=== PATIENT | female | born 1945 | race Caucasian/White ===

== ENCOUNTER → 2017-03-22 | Outpatient (REF) | payer MEDICARE | LOC: M LAB REF 09:40 | PROVIDERS: ATTEND Physician Assistant | DX: N39.0 Urinary tract infection, site not specified (principal) ==

== ENCOUNTER → 2017-04-19 | Outpatient (CLI) | payer MEDICARE ==
[2017-04-19 10:09] LABS: MEAN CORPUSCULAR HEMOGLOBIN 31.3 pg (27.0-33.0); MEAN CORPUSCULAR HGB CONC 33.7 g/dl (32.0-36.5); MEAN CORPUSCULAR VOLUME 92.9 fl (80.0-96.0); RED CELL DISTRIBUTION WIDTH 12.6 % (11.5-14.5); WHITE BLOOD COUNT 4.7 K/mm3 (4.0-10.0)
[2017-04-19 10:36] LABS: ALBUMIN 3.5 GM/DL (3.2-5.2); ALBUMIN/GLOBULIN RATIO 1.21 (1.00-1.93); ALKALINE PHOSPHATASE 70 U/L (45-117); ALT/SGPT 27 U/L (12-78); ANION GAP 7 MEQ/L (8-16); AST/SGOT 19 U/L (15-37); BILIRUBIN,TOTAL 0.5 MG/DL (0.2-1.0); BLOOD UREA NITROGEN 20 MG/DL (7-18); CALCIUM LEVEL 8.5 MG/DL (8.8-10.2); CARBON DIOXIDE LEVEL 33 MEQ/L (21-32); CHLORIDE LEVEL 102 MEQ/L (98-107); CHOLESTEROL LEVEL 198 MG/DL (<200); CREATININE FOR GFR 0.96 MG/DL (0.55-1.02); FREE T4 1.25 NG/DL (0.76-1.46); GLOMERULAR FILTRATION RATE > 60.0 (>39); GLUCOSE, FASTING 96 MG/DL (83-110); SODIUM LEVEL 142 MEQ/L (136-145); TOTAL PROTEIN 6.4 GM/DL (6.4-8.2); TRIGLYCERIDES LEVEL 117 MG/DL (<150)
[2017-04-19 10:52] LABS: VITAMIN B12 LEVEL 488 PG/ML (247-911)
== END ==
LOC: M WUC 08:02
PROVIDERS: ATTEND Nurse Practitioner Family
DX: I10 Essential (primary) hypertension (principal); E78.00 Pure hypercholesterolemia, unspecified; E03.9 Hypothyroidism, unspecified; E55.9 Vitamin D deficiency, unspecified; E53.8 Deficiency of other specified B group vitamins

== ENCOUNTER → 2017-07-14 | Outpatient (CLI) | payer MEDICARE ==
[2017-07-14 10:12] LABS: MEAN CORPUSCULAR HEMOGLOBIN 31.1 pg (27.0-33.0); MEAN CORPUSCULAR HGB CONC 33.7 g/dl (32.0-36.5); MEAN CORPUSCULAR VOLUME 92.2 fl (80.0-96.0); RED CELL DISTRIBUTION WIDTH 12.9 % (11.5-14.5)
[2017-07-14 10:42] LABS: ALBUMIN 3.8 GM/DL (3.2-5.2); ALBUMIN/GLOBULIN RATIO 1.41 (1.00-1.93); ALKALINE PHOSPHATASE 70 U/L (45-117); ALT/SGPT 21 U/L (12-78); ANION GAP 7 MEQ/L (8-16); AST/SGOT 16 U/L (15-37); BILIRUBIN,TOTAL 0.5 MG/DL (0.2-1.0); BLOOD UREA NITROGEN 14 MG/DL (7-18); CALCIUM LEVEL 9.1 MG/DL (8.8-10.2); CARBON DIOXIDE LEVEL 30 MEQ/L (21-32); CHLORIDE LEVEL 108 MEQ/L (98-107); CREATININE FOR GFR 0.81 MG/DL (0.55-1.02); GLOMERULAR FILTRATION RATE > 60.0 (>39); GLUCOSE, FASTING 99 MG/DL (83-110); SODIUM LEVEL 145 MEQ/L (136-145); TOTAL PROTEIN 6.5 GM/DL (6.4-8.2)
[2017-07-16 11:20] LABS: CHOLESTEROL LEVEL 215 MG/DL (<200); TRIGLYCERIDES LEVEL 144 MG/DL (<150)
== END ==
LOC: M LAB 09:41
PROVIDERS: ATTEND Nurse Practitioner Family
DX: E55.9 Vitamin D deficiency, unspecified (principal); Z79.899 Other long term (current) drug therapy

== ENCOUNTER → 2017-08-02 | Outpatient (CLI) | payer MEDICARE ==
--- NOTE | 2017-08-02 15:34 | REP ---
Clinical: Pain. Technique: Neutral and frog lateral views of the right hip. Findings: Age-related degenerative changes include mild joint space narrowing along with increased sclerosis to the acetabular roof and adjacent spurring. Cortical irregularity to the greater trochanter also identified. Normal contour to the femoral neck and head. No acute fracture dislocation. No periarticular calcifications. Impression: Age-related arthritic degenerative changes. Signed by Liu Sepulveda MD 08/02/2017 03:25 P
--- NOTE | 2017-08-02 15:54 | REP ---
LUMBAR SPINE, FIVE VIEWS: HISTORY: Back pain. There is no acute fracture or subluxation. The L2-3 through L5-S1 intervertebral discs are decreased in height consistent with disc degeneration. Osteophytes are present throughout the lumbar spine. There is narrowing of the L4-5 and L5-S1 facet joints. IMPRESSION:Degenerative change as described above. Signed by Chase Trent MD 08/02/2017 04:02 P
== END ==
LOC: M WUC 14:52
PROVIDERS: ATTEND Nurse Practitioner Family
DX: M16.11 Unilateral primary osteoarthritis, right hip (principal); M51.37 Other intervertebral disc degeneration, lumbosacral region

== ENCOUNTER → 2017-10-10 | Outpatient (CLI) | payer MEDICARE ==
[2017-10-10 13:12] LABS: MEAN CORPUSCULAR HEMOGLOBIN 30.6 pg (27.0-33.0); MEAN CORPUSCULAR HGB CONC 33.1 g/dl (32.0-36.5); MEAN CORPUSCULAR VOLUME 92.5 fl (80.0-96.0); PLATELET COUNT, AUTOMATED 255 10^3/uL (150-450); RED CELL DISTRIBUTION WIDTH 12.1 % (11.5-14.5); WHITE BLOOD COUNT 5.3 10^3/uL (4.0-10.0)
[2017-10-10 13:16] LABS: ALBUMIN 3.8 GM/DL (3.2-5.2); ALBUMIN/GLOBULIN RATIO 1.31 (1.00-1.93); ALKALINE PHOSPHATASE 76 U/L (45-117); ALT/SGPT 22 U/L (12-78); ANION GAP 5 MEQ/L (8-16); AST/SGOT 19 U/L (7-37); BILIRUBIN,TOTAL 0.5 MG/DL (0.2-1.0); BLOOD UREA NITROGEN 17 MG/DL (7-18); CALCIUM LEVEL 8.8 MG/DL (8.8-10.2); CARBON DIOXIDE LEVEL 33 MEQ/L (21-32); CHLORIDE LEVEL 103 MEQ/L (98-107); CHOLESTEROL LEVEL 208 MG/DL (<200); CREATININE FOR GFR 0.84 MG/DL (0.55-1.02); FREE T4 1.13 NG/DL (0.76-1.46); GLOMERULAR FILTRATION RATE > 60.0 (>39); GLUCOSE, FASTING 94 MG/DL (83-110); POTASSIUM SERUM 3.6 MEQ/L (3.5-5.1); SODIUM LEVEL 141 MEQ/L (136-145); TOTAL PROTEIN 6.7 GM/DL (6.4-8.2); TRIGLYCERIDES LEVEL 121 MG/DL (<150)
[2017-10-10 13:18] LABS: VITAMIN B12 LEVEL 422 PG/ML (247-911)
== END ==
LOC: M WUC 08:37
PROVIDERS: ATTEND Nurse Practitioner Family
DX: I10 Essential (primary) hypertension (principal); E55.9 Vitamin D deficiency, unspecified; D64.9 Anemia, unspecified

== ENCOUNTER → 2018-05-20 | Outpatient (CLI) | payer MEDICARE ==
[2018-05-20 13:51] LABS: HEMATOCRIT 38.8 % (36.0-47.0); HEMOGLOBIN 12.8 g/dl (12.0-15.5); MEAN CORPUSCULAR HEMOGLOBIN 30.1 pg (27.0-33.0); MEAN CORPUSCULAR VOLUME 91.3 fl (80.0-96.0); PLATELET COUNT, AUTOMATED 249 10^3/uL (150-450); RED BLOOD COUNT 4.25 10^6/uL (4.00-5.40); RED CELL DISTRIBUTION WIDTH 12.6 % (11.5-14.5); WHITE BLOOD COUNT 4.6 10^3/uL (4.0-10.0)
[2018-05-20 14:27] LABS: ALBUMIN 3.7 GM/DL (3.2-5.2); ALBUMIN/GLOBULIN RATIO 1.23 (1.00-1.93); ALKALINE PHOSPHATASE 85 U/L (45-117); ALT/SGPT 25 U/L (12-78); ANION GAP 7 MEQ/L (8-16); AST/SGOT 23 U/L (7-37); BILIRUBIN,TOTAL 0.6 MG/DL (0.2-1.0); BLOOD UREA NITROGEN 15 MG/DL (7-18); CARBON DIOXIDE LEVEL 29 MEQ/L (21-32); CHLORIDE LEVEL 105 MEQ/L (98-107); CHOLESTEROL LEVEL 233 MG/DL (<200); CHOLESTEROL RISK RATIO 3.065 (<5); CPK CREATINE PHOSPHOKINASE 99 U/L (26-192); CREATININE FOR GFR 0.97 MG/DL (0.55-1.30); FREE T4 1.07 NG/DL (0.76-1.46); GLOMERULAR FILTRATION RATE 59.6 (>39); GLUCOSE, FASTING 99 MG/DL (70-100); HDL CHOLESTEROL 76 MG/DL (>40); LDL CHOLESTEROL 123.4 MG/DL (<100); NON-HDL-C 157 MG/DL; POTASSIUM SERUM 4.4 MEQ/L (3.5-5.1); SODIUM LEVEL 141 MEQ/L (136-145); TOTAL PROTEIN 6.7 GM/DL (6.4-8.2); TRIGLYCERIDES LEVEL 168 MG/DL (<150)
== END ==
LOC: M WUC 08:46
DX: E03.9 Hypothyroidism, unspecified (principal); I10 Essential (primary) hypertension
CPT/HCPCS: 82550

== ENCOUNTER → 2018-10-30 | Outpatient (CLI) | payer MEDICARE ==
[2018-10-30 09:57] LABS: ALBUMIN 3.6 GM/DL (3.2-5.2); ALBUMIN/GLOBULIN RATIO 1.24 (1.00-1.93); ALKALINE PHOSPHATASE 80 U/L (45-117); ALT/SGPT 19 U/L (12-78); ANION GAP 6 MEQ/L (8-16); AST/SGOT 15 U/L (7-37); BILIRUBIN,TOTAL 0.5 MG/DL (0.2-1.0); BLOOD UREA NITROGEN 16 MG/DL (7-18); CALCIUM LEVEL 8.9 MG/DL (8.8-10.2); CARBON DIOXIDE LEVEL 30 MEQ/L (21-32); CHLORIDE LEVEL 107 MEQ/L (98-107); CHOLESTEROL LEVEL 178 MG/DL (<200); CHOLESTEROL RISK RATIO 1.934 (<5); CPK CREATINE PHOSPHOKINASE 111 U/L (26-192); CREATININE FOR GFR 0.89 MG/DL (0.55-1.30); FREE T4 1.17 NG/DL (0.76-1.46); GLOMERULAR FILTRATION RATE > 60.0 (>39); GLUCOSE, FASTING 96 MG/DL (70-100); HDL CHOLESTEROL 92 MG/DL (>40); LDL CHOLESTEROL 61 MG/DL (<100); NON-HDL-C 86 MG/DL; POTASSIUM SERUM 4.2 MEQ/L (3.5-5.1); SODIUM LEVEL 143 MEQ/L (136-145); THYROID STIMULATING HORMONE 0.605 uIU/ML (0.358-3.740); TOTAL PROTEIN 6.5 GM/DL (6.4-8.2); TRIGLYCERIDES LEVEL 124 MG/DL (<150)
[2018-10-30 18:21] LABS: HEMATOCRIT 34.9 % (36.0-47.0); HEMOGLOBIN 11.6 g/dl (12.0-15.5); MEAN CORPUSCULAR HEMOGLOBIN 30.6 pg (27.0-33.0); MEAN CORPUSCULAR HGB CONC 33.2 g/dl (32.0-36.5); MEAN CORPUSCULAR VOLUME 92.1 fl (80.0-96.0); PLATELET COUNT, AUTOMATED 245 10^3/uL (150-450); RED BLOOD COUNT 3.79 10^6/uL (4.00-5.40); RED CELL DISTRIBUTION WIDTH 12.9 % (11.5-14.5); WHITE BLOOD COUNT 5.4 10^3/uL (4.0-10.0)
== END ==
LOC: M WUC 08:10
DX: E55.9 Vitamin D deficiency, unspecified (principal); I10 Essential (primary) hypertension; E78.5 Hyperlipidemia, unspecified
CPT/HCPCS: 82550

== ENCOUNTER → 2019-04-07 | Outpatient (REF) | payer MEDICARE ==
[2019-04-07 13:01] LABS: HEMATOCRIT 36.4 % (36.0-47.0); HEMOGLOBIN 11.9 g/dl (12.0-15.5); MEAN CORPUSCULAR HEMOGLOBIN 30.1 pg (27.0-33.0); MEAN CORPUSCULAR HGB CONC 32.7 g/dl (32.0-36.5); MEAN CORPUSCULAR VOLUME 91.9 fl (80.0-96.0); PLATELET COUNT, AUTOMATED 242 10^3/uL (150-450); RED BLOOD COUNT 3.96 10^6/uL (4.00-5.40); WHITE BLOOD COUNT 4.5 10^3/uL (4.0-10.0)
[2019-04-07 13:13] LABS: ALBUMIN 3.5 GM/DL (3.2-5.2); ALT/SGPT 22 U/L (12-78); BILIRUBIN,TOTAL 0.6 MG/DL (0.2-1.0); BLOOD UREA NITROGEN 13 MG/DL (7-18); CALCIUM LEVEL 8.8 MG/DL (8.8-10.2); CARBON DIOXIDE LEVEL 31 MEQ/L (21-32); CHLORIDE LEVEL 105 MEQ/L (98-107); CPK CREATINE PHOSPHOKINASE 101 U/L (26-192); CREATININE FOR GFR 0.87 MG/DL (0.55-1.30); FREE T4 0.98 NG/DL (0.76-1.46); GLOMERULAR FILTRATION RATE > 60.0 (>39); GLUCOSE, FASTING 93 MG/DL (70-100); POTASSIUM SERUM 3.8 MEQ/L (3.5-5.1); SODIUM LEVEL 142 MEQ/L (136-145); TOTAL 25(OH) VITAMIN D 42.3 NG/ML (30.0-100.0); TOTAL PROTEIN 6.5 GM/DL (6.4-8.2)
== END ==
LOC: M LABDRAW1 11:50
PROVIDERS: ATTEND Nurse Practitioner Family
DX: I10 Essential (primary) hypertension (principal); E78.5 Hyperlipidemia, unspecified; E55.9 Vitamin D deficiency, unspecified; E03.9 Hypothyroidism, unspecified; Z79.899 Other long term (current) drug therapy

== ENCOUNTER → 2019-07-21 | Outpatient (CLI) | payer MEDICARE ==
[2019-07-21 14:47] LABS: BLOOD UREA NITROGEN 10 MG/DL (7-18); CALCIUM LEVEL 9.5 MG/DL (8.8-10.2); CARBON DIOXIDE LEVEL 34 MEQ/L (21-32); CHLORIDE LEVEL 104 MEQ/L (98-107); CREATININE FOR GFR 0.81 MG/DL (0.55-1.30); GLOMERULAR FILTRATION RATE > 60.0 (>39); GLUCOSE, FASTING 91 MG/DL (70-100); POTASSIUM SERUM 3.2 MEQ/L (3.5-5.1); SODIUM LEVEL 141 MEQ/L (136-145)
== END ==
LOC: M LAB 13:45
PROVIDERS: ATTEND Neurological Surgery
DX: E87.6 Hypokalemia (principal); I67.1 Cerebral aneurysm, nonruptured

== ENCOUNTER → 2019-08-27 | Outpatient (CLI) | payer MEDICARE ==
[2019-08-27 10:15] LABS: HEMOGLOBIN 12.8 g/dl (12.0-15.5); MEAN CORPUSCULAR HEMOGLOBIN 30.3 pg (27.0-33.0); MEAN CORPUSCULAR HGB CONC 32.8 g/dl (32.0-36.5); MEAN CORPUSCULAR VOLUME 92.2 fl (80.0-96.0); PLATELET COUNT, AUTOMATED 222 10^3/uL (150-450); RED BLOOD COUNT 4.23 10^6/uL (4.00-5.40); WHITE BLOOD COUNT 4.9 10^3/uL (4.0-10.0)
[2019-08-27 10:49] LABS: ALBUMIN 3.6 GM/DL (3.2-5.2); ALT/SGPT 21 U/L (12-78); BILIRUBIN,TOTAL 0.8 MG/DL (0.2-1.0); BLOOD UREA NITROGEN 12 MG/DL (7-18); CALCIUM LEVEL 9.1 MG/DL (8.8-10.2); CARBON DIOXIDE LEVEL 33 MEQ/L (21-32); CHLORIDE LEVEL 104 MEQ/L (98-107); CHOLESTEROL LEVEL 149 MG/DL (<200); CHOLESTEROL RISK RATIO 1.886 (<5); CPK CREATINE PHOSPHOKINASE 100 U/L (26-192); CREATININE FOR GFR 0.82 MG/DL (0.55-1.30); GLOMERULAR FILTRATION RATE > 60.0 (>39); GLUCOSE, FASTING 79 MG/DL (70-100); HDL CHOLESTEROL 79 MG/DL (>40); LDL CHOLESTEROL 50 MG/DL (<100); NON-HDL-C 70 MG/DL; POTASSIUM SERUM 3.6 MEQ/L (3.5-5.1); SODIUM LEVEL 145 MEQ/L (136-145); THYROID STIMULATING HORMONE 0.161 uIU/ML (0.358-3.740); TOTAL PROTEIN 6.7 GM/DL (6.4-8.2); TRIGLYCERIDES LEVEL 98 MG/DL (<150)
[2019-08-27 10:59] LABS: TOTAL 25(OH) VITAMIN D 56.2 NG/ML (30.0-100.0)
== END ==
LOC: M WUC 08:05
PROVIDERS: ATTEND Nurse Practitioner Family
DX: I10 Essential (primary) hypertension (principal); E55.9 Vitamin D deficiency, unspecified; E03.9 Hypothyroidism, unspecified

== ENCOUNTER → 2020-03-15 | Outpatient (CLI) | payer MEDICARE ==
[2020-03-15 10:56] LABS: HEMATOCRIT 36.6 % (36.0-47.0); HEMOGLOBIN 11.9 g/dl (12.0-15.5); MEAN CORPUSCULAR HEMOGLOBIN 29.8 pg (27.0-33.0); MEAN CORPUSCULAR HGB CONC 32.5 g/dl (32.0-36.5); MEAN CORPUSCULAR VOLUME 91.7 fl (80.0-96.0); PLATELET COUNT, AUTOMATED 265 10^3/uL (150-450); RED BLOOD COUNT 3.99 10^6/uL (4.00-5.40); WHITE BLOOD COUNT 4.6 10^3/uL (4.0-10.0)
[2020-03-15 11:02] LABS: BLOOD UREA NITROGEN 16 MG/DL (7-18); CREATININE FOR GFR 0.85 MG/DL (0.55-1.30); GLOMERULAR FILTRATION RATE > 60.0 (>39); GLUCOSE, FASTING 93 MG/DL (70-100)
[2020-03-15 11:03] LABS: ALBUMIN 3.7 GM/DL (3.2-5.2); ALT/SGPT 24 U/L (12-78); BILIRUBIN,TOTAL 0.6 MG/DL (0.2-1.0); CARBON DIOXIDE LEVEL 32 MEQ/L (21-32); CHLORIDE LEVEL 104 MEQ/L (98-107); CHOLESTEROL LEVEL 187 MG/DL (<200); CPK CREATINE PHOSPHOKINASE 81 U/L (26-192); HDL CHOLESTEROL 110 MG/DL (>40); LDL CHOLESTEROL 59 MG/DL (<100); NON-HDL-C 77 MG/DL; SODIUM LEVEL 140 MEQ/L (136-145); TOTAL PROTEIN 6.6 GM/DL (6.4-8.2); TRIGLYCERIDES LEVEL 89 MG/DL (<150)
[2020-03-15 11:09] LABS: TOTAL 25(OH) VITAMIN D 43.9 NG/ML (30.0-100.0)
== END ==
LOC: M PLALAB 08:48
PROVIDERS: ATTEND Nurse Practitioner Family
DX: I10 Essential (primary) hypertension (principal); E78.5 Hyperlipidemia, unspecified

== ENCOUNTER → 2020-05-10 | Outpatient (CLI) | payer MEDICARE ==
[2020-05-10 11:25] LABS: APPEARANCE, URINE CLEAR (CLEAR); BACTERIA, URINE AUTO NEGATIVE (NEGATIVE); BILIRUBIN, URINE AUTO NEGATIVE (NEGATIVE); BLOOD, URINE BLOOD NEGATIVE (NEGATIVE); COLOR, URINE YELLOW (YELLOW); GLUCOSE, URINE (UA) AUTO NEGATIVE (NEGATIVE); KETONE, URINE AUTO NEGATIVE (NEGATIVE); LEUKOCYTE ESTERASE, URINE AUTO 2+ (NEGATIVE); MUCUS, URINE SMALL (NEGATIVE); NITRITE, URINE AUTO NEGATIVE (NEGATIVE); PROTEIN, URINE AUTO NEGATIVE (NEGATIVE); RBC, URINE AUTO 6 /HPF (0-3); SPECIFIC GRAVITY URINE AUTO 1.015 (1.002-1.035); SQUAMOUS EPITHELIAL CELL UR AU 2 /HPF (0-6); WBC, URINE AUTO 13 /HPF (0-3)
[2020-05-10 11:26] LABS: BASO # 0.1 10^3/uL (0.0-0.2); BASO % 1.1 % (0.0-1.0); EOS # 0.1 10^3/uL (0.0-0.5); EOS % 2.4 % (0.0-3.0); HEMATOCRIT 37.6 % (36.0-47.0); HEMOGLOBIN 12.4 g/dl (12.0-15.5); LYMPH # 1.3 10^3/uL (1.5-5.0); LYMPH % 23.5 % (24.0-44.0); MEAN CORPUSCULAR HEMOGLOBIN 30.5 pg (27.0-33.0); MEAN CORPUSCULAR VOLUME 92.6 fl (80.0-96.0); MONO # 0.5 10^3/uL (0.0-0.8); MONO % 9.3 % (0.0-5.0); NEUTROPHILS # 3.4 10^3/uL (1.5-8.5); NEUTROPHILS % 63.3 % (36.0-66.0); PLATELET COUNT, AUTOMATED 262 10^3/uL (150-450); RED BLOOD COUNT 4.06 10^6/uL (4.00-5.40); WHITE BLOOD COUNT 5.4 10^3/uL (4.0-10.0)
[2020-05-10 11:40] LABS: PROTHROMBIN TIME 12.9 SECONDS (11.8-14.0)
[2020-05-10 11:41] LABS: PARTIAL THROMBOPLASTIN TIME 28.3 SECONDS (25.0-38.4)
[2020-05-10 11:55] LABS: BLOOD UREA NITROGEN 16 MG/DL (7-18); CALCIUM LEVEL 8.7 MG/DL (8.8-10.2); CARBON DIOXIDE LEVEL 33 MEQ/L (21-32); CHLORIDE LEVEL 101 MEQ/L (98-107); CREATININE FOR GFR 0.85 MG/DL (0.55-1.30); GLOMERULAR FILTRATION RATE > 60.0 (>39); GLUCOSE, FASTING 99 MG/DL (70-100); POTASSIUM SERUM 3.8 MEQ/L (3.5-5.1); SODIUM LEVEL 140 MEQ/L (136-145)
== END ==
LOC: M PLALAB 08:28
PROVIDERS: ATTEND Physician Assistant Medical
DX: I67.1 Cerebral aneurysm, nonruptured (principal)

== ENCOUNTER → 2020-07-05 | Outpatient (REF) | payer MEDICARE ==
[2020-08-05 13:30] LABS: APPEARANCE, URINE HAZY (CLEAR); BACTERIA, URINE AUTO NEGATIVE (NEGATIVE); BILIRUBIN, URINE AUTO NEGATIVE (NEGATIVE); BLOOD, URINE BLOOD NEGATIVE (NEGATIVE); COLOR, URINE AMBER (YELLOW); GLUCOSE, URINE (UA) AUTO NEGATIVE (NEGATIVE); KETONE, URINE AUTO NEGATIVE (NEGATIVE); LEUKOCYTE ESTERASE, URINE AUTO TRACE (NEGATIVE); MUCUS, URINE MODERATE (NEGATIVE); NITRITE, URINE AUTO NEGATIVE (NEGATIVE); PROTEIN, URINE AUTO NEGATIVE (NEGATIVE); RBC, URINE AUTO 2 /HPF (0-3); SPECIFIC GRAVITY URINE AUTO 1.019 (1.002-1.035); SQUAMOUS EPITHELIAL CELL UR AU 2 /HPF (0-6); TRANSITIONAL EPITHELIAL AUTO <1 /HPF; WBC, URINE AUTO 5 /HPF (0-3)
[2020-08-05 13:37] LABS: INR 1.07; PARTIAL THROMBOPLASTIN TIME 29.9 SECONDS (25.0-38.4); PROTHROMBIN TIME 14.1 SECONDS (11.8-14.0)
[2020-08-05 15:28] LABS: BASO # 0.1 10^3/uL (0.0-0.2); BASO % 1.1 % (0.0-1.0); EOS # 0.1 10^3/uL (0.0-0.5); EOS % 2.4 % (0.0-3.0); HEMATOCRIT 37.9 % (36.0-47.0); HEMOGLOBIN 12.5 g/dl (12.0-15.5); LYMPH # 1.2 10^3/uL (1.5-5.0); LYMPH % 25.4 % (24.0-44.0); MEAN CORPUSCULAR HEMOGLOBIN 30.6 pg (27.0-33.0); MEAN CORPUSCULAR VOLUME 92.9 fl (80.0-96.0); MONO # 0.4 10^3/uL (0.0-0.8); MONO % 8.8 % (0.0-5.0); NEUTROPHILS # 2.8 10^3/uL (1.5-8.5); NEUTROPHILS % 61.9 % (36.0-66.0); PLATELET COUNT, AUTOMATED 261 10^3/uL (150-450); RED BLOOD COUNT 4.08 10^6/uL (4.00-5.40); WHITE BLOOD COUNT 4.5 10^3/uL (4.0-10.0)
[2020-08-18 16:40] LABS: BLOOD UREA NITROGEN 14 MG/DL (7-18); CALCIUM LEVEL 9.1 MG/DL (8.8-10.2); CARBON DIOXIDE LEVEL 33 MEQ/L (21-32); CHLORIDE LEVEL 102 MEQ/L (98-107); CREATININE FOR GFR 0.93 MG/DL (0.55-1.30); GLOMERULAR FILTRATION RATE > 60.0 (>39); GLUCOSE, FASTING 100 MG/DL (70-100); POTASSIUM SERUM 3.9 MEQ/L (3.5-5.1); SODIUM LEVEL 140 MEQ/L (136-145)
== END ==
LOC: M PLALAB 12:59
PROVIDERS: ATTEND Physician Assistant Medical
DX: I67.1 Cerebral aneurysm, nonruptured (principal)

== ENCOUNTER → 2020-07-05 | Outpatient (REF) | payer MEDICARE ==
[2020-08-18 16:37] LABS: CHOLESTEROL RISK RATIO 1.907 (<5); FREE T4 1.6 NG/DL (0.76-1.46); THYROID STIMULATING HORMONE 1.02 uIU/ML (0.358-3.740)
== END ==
LOC: M PLALAB 12:57
PROVIDERS: ATTEND Nurse Practitioner Family
DX: E03.9 Hypothyroidism, unspecified (principal); E78.00 Pure hypercholesterolemia, unspecified; Z79.899 Other long term (current) drug therapy

== ENCOUNTER → 2020-07-29 | Outpatient (CLI) | payer MEDICARE ==
--- NOTE | 2020-08-24 12:43 | REP ---
LEFT TIBIA-FIBULA CLINICAL: Trauma. TECHNIQUE: AP and lateral views. FINDINGS: Osseous structures and joint spaces are intact and normal. No acute fracture or dislocation. No subcutaneous emphysema or foreign body. IMPRESSION: No acute fracture or dislocation. MTDD
== END ==
LOC: M WUC 09:52
PROVIDERS: ATTEND Physician Assistant
DX: S80.12XA Contusion of left lower leg, initial encounter (principal); X58.XXXA Exposure to other specified factors, initial encounter; Y92.9 Unspecified place or not applicable

== ENCOUNTER → 2020-11-02 | Outpatient (CLI) | payer MEDICARE ==
--- NOTE | 2020-11-02 14:55 | REPPI ---
INDICATION: CERVICAL PAIN. COMPARISON: Comparison cervical spine radiographs are from July 14, 2013.. TECHNIQUE: Eight views.. FINDINGS: Lateral views done in flexion, extension, and neutral position demonstrate normal alignment. Vertebral body heights are preserved. No subluxation or instability is seen. There is degenerative disc narrowing and anterior osteophyte formation, mild degree at the C 4 5 and C 5 6 disc levels. Prevertebral soft tissues are unremarkable. Oblique images demonstrate uncovertebral spurring producing neural foraminal encroachment on the right at C3-4 and C4-5. Facets are normally aligned. Neural foramina are otherwise intact. There is mild facet hypertrophy in the midcervical spine bilaterally. Findings are felt to be unchanged from the 2013 prior study.. AP and open-mouth odontoid views are unremarkable. IMPRESSION: Mild degenerative disc changes at C4-5 and C5-6. Osteoarthritic facet disease as above. Mild neural foraminal narrowing at C3-4 and C4-5 on the right.. Otherwise negative cervical spine radiographs. <Electronically signed by Paul Chand > 11/02/20 1157
[2020-11-02 15:16] LABS: FREE T4 1.24 NG/DL (0.76-1.46); THYROID STIMULATING HORMONE 2.16 uIU/ML (0.358-3.740)
== END ==
LOC: M PLAIMG 10:32
PROVIDERS: ATTEND Nurse Practitioner Family
DX: M50.31 Other cervical disc degeneration, high cervical region (principal); M50.321 Other cervical disc degeneration at C4-C5 level; M25.78 Osteophyte, vertebrae; E53.8 Deficiency of other specified B group vitamins; D64.9 Anemia, unspecified; E03.9 Hypothyroidism, unspecified

== ENCOUNTER 2020-12-24 16:37 | Emergency (ER) | payer MEDICARE ==
[~2020-12-24] VITALS: Ht 165.1 cm; Wt 65.9 kg
--- OUTSIDE RECORDS SUMMARY | 2020-12-24 16:46 | CCD ---
Author Author [facility] Organization [facility] Address Unknown Phone Unavailable Care Team Providers Care Manager Post Name Role Phone Alexandru PRITCHETT, Sebastien Unavailable Unavailable Alexandru PRITCHETT, Adilsoner Unavailable Unavailable Alexandru PRITCHETT, Christjoeler Unavailable Unavailable Alexandru PRITCHETT, Christopher Unavailable Unavailable Alexandru PRITCHETT, Christopher Unavailable Unavailable Alexandru PRITCHETT, Christopher Unavailable Unavailable Alexandru PRITCHETT, Christjoeler Unavailable Unavailable Alexandru PRITCHETT, Christjoeler Unavailable Unavailable Alexandru PRITCHETT, Christopher Unavailable Unavailable Alexandru PRITCHETT, Adilsoner Unavailable Unavailable Alexandru PRITCHETT, Cliveopher Unavailable Unavailable Alexandru PRITCHETT, Christopher Unavailable Unavailable Alexandru PRITCHETT, Christopher Unavailable Unavailable Alexandru PRITCHETT, Christopher Unavailable Unavailable Alexandru PRITCHETT, Christopher Unavailable Unavailable Alexandru PRITCHETT, Christopher Unavailable Unavailable Alexandru PRITCHETT, Christopher Unavailable Unavailable Alexandru PRITCHETT, Christjoeler Unavailable Unavailable Alexandru PRITCHETT, Christopher Unavailable Unavailable Alexandru PRITCHETT, Christopher Unavailable Unavailable Alexandru PRITCHETT, Christopher Unavailable Unavailable Alexandru PRITCHETT, Christopher Unavailable Unavailable Alexandru PRITCHETT, Christopher Unavailable Unavailable Kelinusscailin PRITCHETT, Christopher Unavailable Unavailable Kelinusscailin PRITCHETT, Christopher Unavailable Unavailable Kelinusscailin PRITCHETT, Christopher Unavailable Unavailable Alexandru PRITCHETT, Christopher Unavailable Unavailable Kelinusscailin PRTICHETT, Christopher Unavailable Unavailable Alexandru PRITCHETT, Christopher Unavailable Unavailable Kelinusscailin PRITCHETT, Christopher Unavailable Unavailable Kelinusscailin PRITCHETT, Christopher Unavailable Unavailable Alexandru PRITCHETT, Christopher Unavailable Unavailable Alexandru PRITCHETT, Christopher Unavailable Unavailable Kelinusscailin PRITCHETT, Christopher Unavailable Unavailable Alexandru PRITCHETT, Christopher Unavailable Unavailable Kelinusscailin PRITCHETT, Christopher Unavailable Unavailable Kelinusscailin PRITCHETT, Christopher Unavailable Unavailable Kelinusscailin PRITCHETT, Christopher Unavailable Unavailable Alexandru PRITCHETT, Christopher Unavailable Unavailable Alexandru PRITCHETT, Christopher Unavailable Unavailable Alexandru PRITCHETT, Christopher Unavailable Unavailable Alexandru PRITCHETT, Christopher Unavailable Unavailable Grace NEGRON Unavailable Unavailable ALIASES , DEFAULT / GENERIC / UNKNOWN PROVIDER * Unavailable Unavailable ALIASES , DEFAULT / GENERIC / UNKNOWN PROVIDER * Unavailable Unavailable ALIASES , DEFAULT / GENERIC / UNKNOWN PROVIDER * Unavailable Unavailable ALIASES , DEFAULT / GENERIC / UNKNOWN PROVIDER * Unavailable Unavailable ALIASES , DEFAULT / GENERIC / UNKNOWN PROVIDER * Unavailable Unavailable ALIASES , DEFAULT / GENERIC / UNKNOWN PROVIDER * Unavailable Unavailable ALIASES , DEFAULT / GENERIC / UNKNOWN PROVIDER * Unavailable Unavailable ALIASES , DEFAULT / GENERIC / UNKNOWN PROVIDER * Unavailable Unavailable ALIASES , DEFAULT / GENERIC / UNKNOWN PROVIDER * Unavailable Unavailable ALIASES , DEFAULT / GENERIC / UNKNOWN PROVIDER * Unavailable Unavailable ALIASES , DEFAULT / GENERIC / UNKNOWN PROVIDER * Unavailable Unavailable ALIASES , DEFAULT / GENERIC / UNKNOWN PROVIDER * Unavailable Unavailable ALIASES , DEFAULT / GENERIC / UNKNOWN PROVIDER * Unavailable Unavailable ALIASES , DEFAULT / GENERIC / UNKNOWN PROVIDER * Unavailable Unavailable ALIASES , DEFAULT / GENERIC / UNKNOWN PROVIDER * Unavailable Unavailable ALIASES , DEFAULT / GENERIC / UNKNOWN PROVIDER * Unavailable Unavailable ALIASES , DEFAULT / GENERIC / UNKNOWN PROVIDER * Unavailable Unavailable ALIASES , DEFAULT / GENERIC / UNKNOWN PROVIDER * Unavailable Unavailable ALIASES , DEFAULT / GENERIC / UNKNOWN PROVIDER * Unavailable Unavailable ALIASES , DEFAULT / GENERIC / UNKNOWN PROVIDER * Unavailable Unavailable ALIASES , DEFAULT / GENERIC / UNKNOWN PROVIDER * Unavailable Unavailable ALIASES , DEFAULT / GENERIC / UNKNOWN PROVIDER * Unavailable Unavailable ALIASES , DEFAULT / GENERIC / UNKNOWN PROVIDER * Unavailable Unavailable ALIASES , DEFAULT / GENERIC / UNKNOWN PROVIDER * Unavailable Unavailable ALIASES , DEFAULT / GENERIC / UNKNOWN PROVIDER * Unavailable Unavailable ALIASES , DEFAULT / GENERIC / UNKNOWN PROVIDER * Unavailable Unavailable ALIASES , DEFAULT / GENERIC / UNKNOWN PROVIDER * Unavailable Unavailable ALIASES , DEFAULT / GENERIC / UNKNOWN PROVIDER * Unavailable Unavailable ALIASES , DEFAULT / GENERIC / UNKNOWN PROVIDER * Unavailable Unavailable ALIASES , DEFAULT / GENERIC / UNKNOWN PROVIDER * Unavailable Unavailable ALIASES , DEFAULT / GENERIC / UNKNOWN PROVIDER * Unavailable Unavailable ALIASES , DEFAULT / GENERIC / UNKNOWN PROVIDER * Unavailable Unavailable ALIASES , DEFAULT / GENERIC / UNKNOWN PROVIDER * Unavailable Unavailable ALIASES , DEFAULT / GENERIC / UNKNOWN PROVIDER * Unavailable Unavailable ALIASES , DEFAULT / GENERIC / UNKNOWN PROVIDER * Unavailable Unavailable ALIASES , DEFAULT / GENERIC / UNKNOWN PROVIDER * Unavailable Unavailable ALIASES , DEFAULT / GENERIC / UNKNOWN PROVIDER * Unavailable Unavailable ALIASES , DEFAULT / GENERIC / UNKNOWN PROVIDER * Unavailable Unavailable ALIASES , DEFAULT / GENERIC / UNKNOWN PROVIDER * Unavailable Unavailable ALIASES , DEFAULT / GENERIC / UNKNOWN PROVIDER * Unavailable Unavailable ALIASES , DEFAULT / GENERIC / UNKNOWN PROVIDER * Unavailable Unavailable ALIASES , DEFAULT / GENERIC / UNKNOWN PROVIDER * Unavailable Unavailable ALIASES , DEFAULT / GENERIC / UNKNOWN PROVIDER * Unavailable Unavailable JULIAN, J DEBBIE DPM PC Unavailable Unavailable JULIAN, J DEBBIE DPM PC Unavailable Unavailable JULIAN, J DEBBIE DPM PC Unavailable Unavailable JULIAN, J DEBBIE DPM PC Unavailable Unavailable JULIAN, J DEBBIE DPM [facility] Unavailable Unavailable JULIAN, J DEBBIE [facility] Unavailable Unavailable JULIAN, J DEBBIE [facility] Unavailable Unavailable JULIAN, J DEBBIE [facility] Unavailable Unavailable JULIAN, J DEBBIE [facility] Unavailable Unavailable JULIAN, J DEBBIE [facility] Unavailable Unavailable JULIAN, J DEBBIE [facility] Unavailable Unavailable JULIAN, J DEBBIE [facility] Unavailable Unavailable JULIAN, J DEBBIE [facility] Unavailable Unavailable JULIAN, J DEBBIE [facility] Unavailable Unavailable JULIAN, J DEBBIE [facility] Unavailable Unavailable JULIAN, J DEBBIE [facility] Unavailable Unavailable JULIAN, J DEBBIE [facility] Unavailable Unavailable JULIAN, J DEBBIE [facility] Unavailable Unavailable JULIAN, J DEBBIE D[facility] Unavailable Unavailable JULIAN, J DEBBIE [facility] Unavailable Unavailable JULIAN, J DEBBIE [facility] Unavailable Unavailable JULIAN, J DEBBIE [facility] Unavailable Unavailable JULIAN, J DEBBIE [facility] Unavailable Unavailable JULIAN, J DEBBIE [facility] Unavailable Unavailable JULIAN, J DEBBIE [facility] Unavailable Unavailable JULIAN, J DEBBIE [facility] Unavailable Unavailable ZABOROWSKI, J JESSICA DROP FORGER Unavailable Unavailable ZABOROWSKI, J JESSICA DROP FORGER Unavailable Unavailable ZABOROWSKI, J JESSICA DROP FORGER Unavailable Unavailable ZABOROWSKI, J JESSICA DROP FORGER Unavailable Unavailable ZABOROWSKI, J JESSICA DROP FORGER Unavailable Unavailable ZABOROWSKI, J JESSICA DROP FORGER Unavailable Unavailable ZABOROWSKI, J JESSICA DROP FORGER Unavailable Unavailable ZABOROWSKI, J JESSICA DROP FORGER Unavailable Unavailable ZABOROWSKI, J JESSICA DROP FORGER Unavailable Unavailable ZABOROWSKI, J JESSICA DROP FORGER Unavailable Unavailable ZABOROWSKI, J JESSICA DROP FORGER Unavailable Unavailable ZABOROWSKI, J JESSICA DROP FORGER Unavailable Unavailable ZABOROWSKI, J JESSICA DROP FORGER Unavailable Unavailable ZABOROWSKI, J JESSICA DROP FORGER Unavailable Unavailable ZABOROWSKI, J JESSICA DROP FORGER Unavailable Unavailable ZABOROWSKI, J JESSICA DROP FORGER Unavailable Unavailable ZABOROWSKI, J JESSICA DROP FORGER Unavailable Unavailable ZABOROWSKI, J JESSICA DROP FORGER Unavailable Unavailable ZABOROWSKI, J JESSICA DROP FORGER Unavailable Unavailable ZABOROWSKI, J JESSICA DROP FORGER Unavailable Unavailable ZABOROWSKI, J JESSICA DROP FORGER Unavailable Unavailable ZABOROWSKI, J JESSICA DROP FORGER Unavailable Unavailable ZABOROWSKI, J JESSICA DROP FORGER Unavailable Unavailable ZABOROWSKI, J JESSICA DROP FORGER Unavailable Unavailable ZABOROWSKI, J JESSICA DROP FORGER Unavailable Unavailable ZABOROWSKI, J JESSICA DROP FORGER Unavailable Unavailable ZABOROWSKI, J JESSICA DROP FORGER Unavailable Unavailable ZABOROWSKI, J JESSICA DROP FORGER Unavailable Unavailable ZABOROWSKI, J JESSICA DROP FORGER Unavailable Unavailable ZABOROWSKI, J JESSICA DROP FORGER Unavailable Unavailable ZABOROWSKI, J JESSICA DROP FORGER Unavailable Unavailable ZABOROWSKI, J JESSICA DROP FORGER Unavailable Unavailable ZABOROWSKI, J JESSICA DROP FORGER Unavailable Unavailable ZABOROWSKI, J JESSICA DROP FORGER Unavailable Unavailable ZABOROWSKI, J JESSICA DROP FORGER Unavailable Unavailable ZABOROWSKI, J JESSICA DROP FORGER Unavailable Unavailable ZABOROWSKI, J JESSICA DROP FORGER Unavailable Unavailable ZABOROWSKI, J JESSICA DROP FORGER Unavailable Unavailable ZABOROWSKI, J JESSICA DROP FORGER Unavailable Unavailable ZABOROWSKI, J JESSICA DROP FORGER Unavailable Unavailable ZABOROWSKI, J JESSICA DROP FORGER Unavailable Unavailable ZABOROWSKI, J JESSICA DROP FORGER Unavailable Unavailable ZABOROWSKI, J JESSICA DROP FORGER Unavailable Unavailable ZABOROWSKI, J JESSICA DROP FORGER Unavailable Unavailable KASI RUSS MD Unavailable Unavailable KASI RUSS MD Unavailable Unavailable KASI RUSS MD Unavailable Unavailable KASI RUSS MD Unavailable Unavailable JEB, MAQBOOL MERCEDEZ MD Unavailable Unavailable JEB, MAQBOOL MERCEDEZ MD Unavailable Unavailable JEB, MAQBOOL MERCEDEZ MD Unavailable Unavailable JEB, MAQBOOL MERCEDEZ MD Unavailable Unavailable JEB, MAQBOOL MERCEDEZ MD Unavailable Unavailable JEB, MAQBOOL MERCEDEZ MD Unavailable Unavailable JEB, MAQBOOL MERCEDEZ MD Unavailable Unavailable JEB, MAQBOOL MERCEDEZ MD Unavailable Unavailable JEB, MAQBOOL MERCEDEZ MD Unavailable Unavailable JEB, MAQBOOL MERCEDEZ MD Unavailable Unavailable JEB, MAQBOOL MERCEDEZ MD Unavailable Unavailable JEB, MAQBOOL MERCEDEZ MD Unavailable Unavailable JEB, MAQBOOL MERCEDEZ MD Unavailable Unavailable JEB, MAQBOOL MERCEDEZ MD Unavailable Unavailable JEB, MAQBOOL MERCEDEZ MD Unavailable Unavailable JEB, MAQBOOL MERCEDEZ MD Unavailable Unavailable JEB, MAQBOOL MERCEDEZ MD Unavailable Unavailable JEB, MAQBOOL MERCEDEZ MD Unavailable Unavailable JEB, MAQBOOL MERCEDEZ MD Unavailable Unavailable JEB, MAQBOOL MERCEDEZ MD Unavailable Unavailable JEB, MAQBOOL MERCEDEZ MD Unavailable Unavailable JEB, MAQBOOL MERCEDEZ MD Unavailable Unavailable JEB, MAQBOOL MERCEDEZ MD Unavailable Unavailable JEB, MAQBOOL MERCEDEZ MD Unavailable Unavailable JEB, MAQBOOL MERCEDEZ MD Unavailable Unavailable JEB, MAQBOOL MERCEDEZ MD Unavailable Unavailable JEB, MAQBOOL MERCEDEZ MD Unavailable Unavailable JEB, MAQBOOL MERCEDEZ MD Unavailable Unavailable JEB, MAQBOOL MERCEDEZ MD Unavailable Unavailable JEB, MAQBOOL MERCEDEZ MD Unavailable Unavailable JEB, MAQBOOL MERCEDEZ MD Unavailable Unavailable JEB, MAQBOOL MERCEDEZ MD Unavailable Unavailable JEB, MAQBOOL MERCEDEZ MD Unavailable Unavailable JEB, MAQBOOL MERCEDEZ MD Unavailable Unavailable JEB, MAQBOOL MERCEDEZ MD Unavailable Unavailable JEB, MAQBOOL MERCEDEZ MD Unavailable Unavailable JEB, MAQBOOL MERCEDEZ MD Unavailable Unavailable JEB, MAQBOOL MERCEDEZ MD Unavailable Unavailable JEB, MAQBOOL MERCEDEZ MD Unavailable Unavailable JEB, MAQBOOL MERCEDEZ MD Unavailable Unavailable JEB, MAQBOOL MERCEDEZ MD Unavailable Unavailable JEB, MAQBOOL MERCEDEZ MD Unavailable Unavailable JEB, MAQBOOL MERCEDEZ MD Unavailable Unavailable JEB, MAQBOOL MERCEDEZ MD Unavailable Unavailable JEB, MAQBOOL MERCEDEZ MD Unavailable Unavailable JEB, MAQBOOL MERCEDEZ MD Unavailable Unavailable JEB, MAQBOOL MERCEDEZ MD Unavailable Unavailable JEB, MAQBOOL MERCEDEZ MD Unavailable Unavailable JEB, MAQBOOL MERCEDEZ MD Unavailable Unavailable JEB, MAQBOOL MERCEDEZ MD Unavailable Unavailable JEB, MAQBOOL MERCEDEZ MD Unavailable Unavailable JEB, MAQBOOL MERCEDEZ MD Unavailable Unavailable JBE, MAQBOOL MERCEDEZ MD Unavailable Unavailable JEB, MAQBOOL MERECDEZ MD Unavailable Unavailable JEB, MAQBOOL MERCEDEZ MD Unavailable Unavailable JEB, MAQBOOL MERCEDEZ MD Unavailable Unavailable JEB, MAQBOOL MERCEDEZ MD Unavailable Unavailable JEB, MAQBOOL MERCEDEZ MD Unavailable Unavailable JEB, MAQBOOL MERCEDEZ MD Unavailable Unavailable JEB, MAQBOOL MERCEDEZ MD Unavailable Unavailable JEB, MAQBOOL MERCEDEZ MD Unavailable Unavailable JEB, MAQBOOL MERCEDEZ MD Unavailable Unavailable JEB, MAQBOOL MERCEDEZ MD Unavailable Unavailable JEB, MAQBOOL MERCEDEZ MD Unavailable Unavailable JEB, MAQBOOL MERCEDEZ MD Unavailable Unavailable JEB, MAQBOOL MERCEDEZ MD Unavailable Unavailable JEB, MAQBOOL MERCEDEZ MD Unavailable Unavailable JEB, MAQBOOL MERCEDEZ MD Unavailable Unavailable JEB, MAQBOOL MERCEDEZ MD Unavailable Unavailable JEB, MAQBOOL MERCEDEZ MD Unavailable Unavailable JEB, MAQBOOL MERCEDEZ MD Unavailable Unavailable Kitty Dill MD Unavailable Unavailable Kitty Dill MD Unavailable Unavailable Kitty Dill MD Unavailable Unavailable Kitty Dill MD Unavailable Unavailable Kitty Dill MD Unavailable Unavailable Kitty Dill MD Unavailable Unavailable Kitty Dill MD Unavailable Unavailable Kitty Dill MD Unavailable Unavailable Kitty Dill MD Unavailable Unavailable Vaneenenaam, Kitty Garner MD Unavailable Unavailable Vaneenenaam, Kitty Garner MD Unavailable Unavailable Vaneenenaam, Kitty Garner MD Unavailable Unavailable Vaneenenaam, Kitty Garner MD Unavailable Unavailable Vaneenenaam, Kitty Garner MD Unavailable Unavailable Vaneenenaam, Kitty Garner MD Unavailable Unavailable Vaneenenaam, Kitty Garner MD Unavailable Unavailable Vaneenenaam, Kitty Garner MD Unavailable Unavailable Vaneenenaam, Kitty Garner MD Unavailable Unavailable Vaneenenaam, Kitty Garner MD Unavailable Unavailable Vaneenenaam, Kitty Garner MD Unavailable Unavailable Vaneenenaam, Kitty Garner MD Unavailable Unavailable Vaneenenaam, Kitty Garner MD Unavailable Unavailable Vaneenenaam, Kitty Garner MD Unavailable Unavailable Vaneenenaam, Kitty Garner MD Unavailable Unavailable Vaneenenaam, Kitty Garner MD Unavailable Unavailable Vaneenenaam, Kitty Garner MD Unavailable Unavailable Vaneenenaam, Kitty Garner MD Unavailable Unavailable Vaneenenaam, Kitty Garner MD Unavailable Unavailable Vaneenkimam, Kitty Garner MD Unavailable Unavailable Vaneenenaam, Kitty Garner MD Unavailable Unavailable Vaneenkimam, Kitty Garner MD Unavailable Unavailable Vaneenenaam, Kitty Garner MD Unavailable Unavailable Vaneenenaam, Kitty Garner MD Unavailable Unavailable Vaneenenaam, Kitty Garner MD Unavailable Unavailable Vaneenkimam, Kitty Garner MD Unavailable Unavailable Vaneenenaam, Kitty Garner MD Unavailable Unavailable Vaneenkimam, Kitty Garner MD Unavailable Unavailable Vaneenkimam, Kitty Garner MD Unavailable Unavailable Vaneenkimam, Kitty Garner MD Unavailable Unavailable Vaneenkimam, Kitty Garner MD Unavailable Unavailable Vaneenkimam, Kitty Garner MD Unavailable Unavailable Vaneenkimam, Kitty Garner MD Unavailable Unavailable Glenroy FRAZIER MD Unavailable Unavailable Glenroy FRAZIER MD Unavailable Unavailable Glenroy FRAZIER MD Unavailable Unavailable Glenroy FRAZIER MD Unavailable Unavailable Glenroy FRAZIER MD Unavailable Unavailable Glenroy FRAZIER MD Unavailable Unavailable Glenroy FRAZIER MD Unavailable Unavailable Glenroy FRAZIER MD Unavailable Unavailable Glenroy FRAZIER MD Unavailable Unavailable Glenroy FRAZIER MD Unavailable Unavailable Glenroy FRAZIER MD Unavailable Unavailable Glenroy FRAZIER MD Unavailable Unavailable Glenroy FRAZIER MD Unavailable Unavailable Glenroy FRAZIER MD Unavailable Unavailable Glenroy FRAZIER MD Unavailable Unavailable Glenroy FRAZIER MD Unavailable Unavailable Glenroy FRAZIER MD Unavailable Unavailable Glenroy FRAZIER MD Unavailable Unavailable FRAZIER, C GRAHAME MD Unavailable Unavailable FRAZIER, C GRAHAME MD Unavailable Unavailable FRAZIER, C GRAHAME MD Unavailable Unavailable FRAZIER, C GRAHAME MD Unavailable Unavailable FRAZIER, C GRAHAME MD Unavailable Unavailable FRAZIER, C GRAHAME MD Unavailable Unavailable FRAZIER, C GRAHAME MD Unavailable Unavailable FRAZIER, C GRAHAME MD Unavailable Unavailable FRAZIER, C GRAHAME MD Unavailable Unavailable FRAZIER, C GRAHAME MD Unavailable Unavailable FRAZIER, C GRAHAME MD Unavailable Unavailable FRAZIER, C GRAHAME MD Unavailable Unavailable FRAZIER, C GRAHAME MD Unavailable Unavailable FRAZIER, C GRAHAME MD Unavailable Unavailable FRAZIER, C GRAHAME MD Unavailable Unavailable FRAZIER, C GRAHAME MD Unavailable Unavailable FRAZIER, C GRAHAME MD Unavailable Unavailable FRAZIER, C GRAHAME MD Unavailable Unavailable FRAZIER, C GRAHAME MD Unavailable Unavailable FRAZIER, C GRAHAME MD Unavailable Unavailable FRAZIER, C GRAHAME MD Unavailable Unavailable FRAZIER, C GRAHAME MD Unavailable Unavailable FRAZIER, C GRAHAME MD Unavailable Unavailable FRAZIER, C GRAHAME MD Unavailable Unavailable FRAZIER, C GRAHAME MD Unavailable Unavailable FRAZIER, C GRAHAME MD Unavailable Unavailable FRAZIER, C GRAHAME MD Unavailable Unavailable FRAZIER, C GRAHAME MD Unavailable Unavailable FRAZIER, C GRAHAME MD Unavailable Unavailable FRAZIER, C GRAHAME MD Unavailable Unavailable FRAZIER, C GRAHAME MD Unavailable Unavailable FRAZIER, C GRAHAME MD Unavailable Unavailable FRAZIER, C GRAHAME MD Unavailable Unavailable FRAZIER, C GRAHAME MD Unavailable Unavailable FRAZIER, C GRAHAME MD Unavailable Unavailable FRAZIER, C GRAHAME MD Unavailable Unavailable FRAZIER, C GRAHAME MD Unavailable Unavailable FRAZIER, C GRAHAME MD Unavailable Unavailable FRAZIER, C GRAHAME MD Unavailable Unavailable FRAZIER, C GRAHAME MD Unavailable Unavailable FRAZIER, C GRAHAME MD Unavailable Unavailable LETTIERE, A BRYCE PA Unavailable Unavailable LETTIERE, A BRYCE PA Unavailable Unavailable LETTIERE, A BRYCE PA Unavailable Unavailable LETTIERE, A BRYCE PA Unavailable Unavailable LETTIERE, A BRYCE PA Unavailable Unavailable LETTIERE, A BRYCE PA Unavailable Unavailable LETTIERE, A BRYCE PA Unavailable Unavailable LETTIERE, A BRYCE PA Unavailable Unavailable LETTIERE, A BRYCE PA Unavailable Unavailable LETTIERE, A BRYCE PA Unavailable Unavailable LETTIERE, A BRYCE PA Unavailable Unavailable LETTIERE, A BRYCE PA Unavailable Unavailable LETTIERE, A BRYCE PA Unavailable Unavailable LETTIERE, A BRYCE PA Unavailable Unavailable LETTIERE, A BRYCE PA Unavailable Unavailable LETTIERE, A BRYCE PA Unavailable Unavailable LETTIERE, A BRYCE PA Unavailable Unavailable LETTIERE, A BRYCE PA Unavailable Unavailable LETTIERE, A BRYCE PA Unavailable Unavailable LETTIERE, A BRYCE PA Unavailable Unavailable LETTIERE, A BRYCE PA Unavailable Unavailable LETTIERE, A BRYCE PA Unavailable Unavailable LETTIERE, A BRYCE PA Unavailable Unavailable LETTIERE, A BRYCE PA Unavailable Unavailable LETTIERE, A BRYCE PA Unavailable Unavailable LETTIERE, A BRYCE PA Unavailable Unavailable LETTIERE, A BRYCE PA Unavailable Unavailable LETTIERE, A BRYCE PA Unavailable Unavailable LETTIERE, A BRYCE PA Unavailable Unavailable Re-disclosure Warning The records that you are about to access may contain information from federally-assisted alcohol or drug abuse programs. If such information is present, then the following federally mandated warning applies: This information has been disclosed to you from records protected by federal confidentiality rules (42 CFR part 2). The federal rules prohibit you from making any further disclosure of this information unless further disclosure is expressly permitted by the written consent of the person to whom it pertains or as otherwise permitted by 42 CFR part 2. A general authorization for the release of medical or other information is NOT sufficient for this purpose. The Federal rules restrict any use of the information to criminally investigate or prosecute any alcohol or drug abuse patient.The records that you are about to access may contain highly sensitive health information, the redisclosure of which is protected by Article 27-F of the [facility] Public Health law. If you continue you may have access to information: Regarding HIV / AIDS; Provided by facilities licensed or operated by the [facility] Office of Mental Health; or Provided by the [facility] Office for People With Developmental Disabilities. If such information is present, then the following [facility] mandated warning applies: This information has been disclosed to you from confidential records which are protected by state law. State law prohibits you from making any further disclosure of this information without the specific written consent of the person to whom it pertains, or as otherwise permitted by law. Any unauthorized further disclosure in violation of state law may result in a fine or fci sentence or both. A general authorization for the release of medical or other information is NOT sufficient authorization for further disc losure. Allergies and Adverse Reactions Type Description Substance Reaction Status Data Source(s ) Drug Class NO KNOWN ALLERGIES NO KNOWN ALLERGIES [facility] No Known Drug Allergies No Known Drug Allergies [facility] Family History Family Member Name Family Member Gender Family Member Status Date o f Status Description Data Source(s) Unknown Unknown Problem [facility] ([facility]) Encounters Encounter Providers Location Date Indications Data Source(s ) Outpatient Referrer: Sebastien Horvath MD 08/25/2020 11: 50:09 AM EDT [facility] Outpatient Attender: JESSICA QUINTERO DROP FORGER [id number] 12:17:15 PM EDT - 08/09/2020 12:10:16 PM EDT [facility] OFFICE OUTPATIENT NEW 30 MINUTES Attender: Kitty Jeffers am, MD Physical Therapy 08/05/2020 10:15:00 AM EDT [facility] ([facility]) Outpatient Attender: BRYCE parky 07/29/2020 09:15:00 AM EDT [facility] ([facility]) Outpatient Attender: FANG FRAZIER MD [id number] 07/27/2020 12: 00:00 AM EDT Aneurysm of other precerebral arteries [facility] Aneurysm of other precerebral arteries Outpatient Attender: FANG FRAZIER MDAd mitter: FANG FRAZIER MDReferrer: FANG FRAZIER MD [id number] 07/08/2020 09:33:39 AM EDT - 07/08/2020 01:00:00 PM EDT Cerebral aneurysm, nonruptured [facility] Cerebral aneurysm, nonruptured Patient discharged. Outpatient Attender: DEFAULT / GENE CARLITOS / UNKNOWN PROVIDER ALIASES Attender: ANA NEGRONReferrer: FANG FRAZIER MD [id number] 12:00:00 AM EDT - 07/04/2020 12:00:00 AM EDT [facility] Outpatient Attender: FANG FRAZIER MD 06/15/2020 12:00:00 AM [facility] Outpatient Attender: FANG FRAZIER MDReferrer: FANG Tang MD 05/20/2020 12:00:00 AM T [facility] Outpatient Referrer: FANG FRAZIER MD 05/18/2020 12:00:00 AM [facility] Outpatient Attender: DEBBIE JORDAN DPGuanako PCConsultant: MERCEDEZ RUSS MD 02/16/2020 04:16:00 PM EDT - 02/16/2020 04:16:00 PM [facility] Outpatient Attender: DEBBIE JORDAN DPGuanako PCConsultant: MERCEDEZ RUSS MD 02/09/2020 02:35:00 PM EDT - 02/09/2020 02:35:00 PM [facility] Outpatient Referrer: Sebastien Horvath MD 11/03/2019 01: 16:32 PM EST [facility] Medications Medication Brand Name Start Date Product Form Dose Route Admi nistrative Instructions Pharmacy Instructions Status Indications Reaction Description Data Source(s) 1,000 mcg 11/03/2020 12:00:00 AM EST tablet 45 TAKE 1/2 TABLET BY MOUTH EVERY DAY TAKE 1/2 TABLET BY MOUTH EVERY DAY SOLD: 11/03/2020 [facility] Meclizine Hydrochloride 25 MG Oral Tablet MECLIZINE HCL 11/02/2020 12:00:00 AM EST tablet 90 TAKE ONE TABLET BY MOUTH THREE TIMES A DAY NEEDED FOR VERTIGO TAKE ONE TABLET BY MOUTH THREE TIMES A DAY NEEDED F OR VERTIGO SOLD: 11/03/2020 [facility] Citalopram 40 MG Oral Tablet CITALOPRAM HYDROBROMIDE 11/02/2020 12:00:00 AM EST tablet 90 TAKE 1 TABLET BY MOUTH DAILY TAKE 1 TABLE T BY MOUTH DAILY SOLD: 11/03/2020 [facility] Meclizine Hydrochloride 25 MG Oral Tablet MECLIZINE HCL 11/02/2020 12:00:00 AM EST tablet 90 TAKE ONE TABLET BY MOUTH THREE TIMES A DAY NEEDED FOR VERTIGO TAKE ONE TABLET BY MOUTH THREE TIMES A DAY NEEDED F OR VERTIGO SOLD: 12/04/2020 [facility] pantoprazole 40 MG Delayed Release Oral Tablet PANTOPRAZOLE SODIUM 09/13/2020 12:00:00 AM EDT tablet,delayed release (DR/EC) 90 T JOANNA 1 TABLET BY MOUTH ONCE DAILY TAKE 1 TABLET BY MOUTH ONCE DAILY SOLD: 09/18/2020 [facility] 88 mcg 09/13/2020 12:00:00 AM EDT tablet 90 TAKE ONE TABLET BY MOUTH EVERY DAY TAKE ONE TABLET BY MOUTH EVERY DAY SOLD: 09/18/2020 [facility] 25 mg 09/13/2020 12:00:00 AM EDT tablet 90 TAKE 1 TABLET BY MOUTH ONCE DAILY TAKE 1 TABLET BY MOUTH ONCE DAILY SOLD: 09/18/2020 [facility] 10 mg 09/13/2020 12:00:00 AM EDT tablet 90 TAKE ONE TABLET BY MOUTH EVERY DAY TAKE ONE TABLET BY MOUTH EVERY DAY SOLD: 09/18/2020 [facility] 500 mg 08/16/2020 12:00:00 AM EDT tablet extended release 12 hr 60 TAKE ONE TABLET BY MOUTH TWICE A DAY TAKE ONE TABLET BY MOUTH TWICE A DAY SOLD: 10/26/2020 [facility] 500 mg 08/16/2020 12:00:00 AM EDT tablet extended release 12 hr 60 TAKE ONE TABLET BY MOUTH TWICE A DAY TAKE ONE TABLET BY MOUTH TWICE A DAY SOLD: 11/27/2020 [facility] 500 mg 08/16/2020 12:00:00 AM EDT tablet extended release 12 hr 60 TAKE ONE TABLET BY MOUTH TWICE A DAY TAKE ONE TABLET BY MOUTH TWICE A DAY SOLD: 09/18/2020 [facility] 500 mg 08/16/2020 12:00:00 AM EDT tablet extended release 12 hr 60 TAKE ONE TABLET BY MOUTH TWICE A DAY TAKE ONE TABLET BY MOUTH TWICE A DAY SOLD: 08/19/2020 [facility] 0.4 mg 08/10/2020 12:00:00 AM EDT tablet, sublingual [address] PLACE 1TAB.UNDER TONGUE EVERY 5MIN. NEEDED FOR CHEST PAIN DIRECTED PLACE 1TAB.UNDER TONGUE EVERY 5MIN. NEEDED FOR CHEST PAIN DIRECTED SOLD: 08/19/2020 [facility] 1,250 mcg (50,000 unit) 08/05/2020 12:00:00 AM EDT capsule 3 TAKE ONE CAPSULE BY MOUTH ONCE A MONTH TAKE ONE CAPSULE BY MOUTH ONCE A MONTH SOLD: 08/10/2020 [facility] 1 % 07/29/2020 12:00:00 AM EDT gel 100 APPLY 4 GRAMS TO LEFT LEG TWO TIMES A DAY NEEDED FOR PAIN APPLY 4 GRAMS TO LEFT LEG TWO TIMES A DA Y NEEDED FOR PAIN SOLD: 07/29/2020 [facility] Diclofenac Sodium 0.01 MG/MG Topical Gel Diclofenac Sodium 07/29/2020 12:00:00 AM EDT active [facility] ([facility], [facility]) 500 mg 07/24/2020 12:00:00 AM EDT tablet extended release 12 hr 60 TAKE 1 TABLET [500MG TOTAL] BY MOUTH TWO TIMES A DAY TAKE 1 TABLET [500MG TOTAL] BY MOUTH TWO TIMES A DAY SOLD: 07/24/2020 [facility] Acetaminophen 325 MG Oral Tablet acetaminophen (TYLENO L) tablet 650 mg acetaminophen (TYLENOL) tablet 650 mg 07/08/2020 12:00:00 PM EDT 65 0 mg Oral completed 650 mg, Oral, O nce, [facility] 07/08/20 at 1200, For 1 dose
Maximum daily dose of acetaminophen is 3,000 mg from all sources in 24 hours.
[facility] Medication administered onsite verapamil (ISOPTIN) in NaCl 0.9 % injection 1 mg/mL (IR use only) 07/08/2020 10:34:22 AM EDT completed Code/Trauma Medication, Starting [facility] 07/08/[address] [place] [address] Medication administered onsite 1 ML heparin sodium, porcine 1000 UNT/ML Injection heparin (porcine) 1000 units/mL injection heparin (porcine) 1000 units/mL injection 07/08/2020 1 0:32:36 AM EDT completed Code/T rauma Medication, Starting [facility] 07/08/[address] [place] [address] Medication administered onsite Nitroglycerin 0.1 MG/ML Injectable Solut ion nitroglycerin injection in D5W 0.1 mg/mL ([facility]) nitroglycerin injection in D5W 0.1 mg/mL ([facility]) 020 10:23:31 AM EDT completed Code/T rauma Medication, Starting [facility] 07/08/[address] [place] [address] Medication administered onsite lidocaine (XYLOCAINE) 2 % injection [id number] 07/08/2020 10:23:12 AM EDT completed Code/Trauma Medicati on, Starting [facility] 07/08/[address] [place] [address] Medication administered onsite 2 ML Midazolam 1 MG/ML Injection midazolam (PF) (VERSE D) injection midazolam (PF) (VERSED) injection 07/08/2020 10:18:00 AM EDT completed Code/Trauma Medication, Starting [facility] 07/08/[address] [place] [address] Medication administered onsite fentaNYL (SUBLIMAZE) (PF) injection [id number] 07/08/2020 10:18:00 AM EDT completed Code/Trauma Medicati on, Starting [facility] 07/08/20 at [address] [facility] Medication administered onsite Lidocaine 40 MG/ML Topical Cream lidocaine (LMX) 4 % c ream lidocaine (LMX) 4 % cream 07/08/2020 08:15:00 AM EDT Topical completed Topical, Once, [facility] 07/08/20 at 0815, For 1 dose
Apply to right wrist and snuffbox generously with tegaderm
Pre-op [facility] Medication administered onsite sodium chloride (preservative free) 0.9 % flush 3 mL [id number] [id number] 07/08/2020 08:10:17 AM EDT 3 mL Intravenous active 3 mL, Intravenous, Every 8 hours, First dose on [facility] 07/08/20 at 0815, For 30 days, Pre-op
Saline Lock. Flush Q8H and after each use to Saline Lock.
[facility] Medication administered onsite Paroxetine Hydrochloride 40 MG Oral Tablet PAROXETINE HCL 06/21/2020 12:00:00 AM EDT tablet 90 TAKE 1 TABLET [40MG] BY MOUT H ONCE DAILY TAKE 1 TABLET [40MG] BY MOUTH ONCE DAILY SOLD: 10/02/2020 [facility] 40 mg 06/21/2020 12:00:00 AM EDT tablet 90 TAKE 1 TABLET [40MG] BY MOUTH ONCE DAILY TAKE 1 TABLET [40MG] BY MOUTH ONCE DAILY SOLD: 06/25/2020 [facility] Cephalexin 500 MG Oral Capsule CEPHALEXIN 06/21/2020 12:00:00 AM EDT capsule 30 TAKE ONE CAPSULE BY MOUTH THREE TIMES A DAY FOR 10 DAY S TAKE ONE CAPSULE BY MOUTH THREE TIMES A DAY FOR 10 DAYS SOLD: 06/22/2020 [facility] ezetimibe 10 MG Oral Tablet EZETIMIBE 06/11/2020 12:00:00 AM EDT table t 90 TAKE 1 TABLET [10MG] BY MOUTH ONCE DAILY TAKE 1 TABLET [10MG] BY MOUTH ONCE DAILY SOLD: 09/18/2020 [facility] 5 mg 06/11/2020 12:00:00 AM EDT tablet 90 TAKE 1 TABLET BY MOUTH EVERY DAY TAKE 1 TABLET BY MOUTH EVERY DAY SOLD: 06/15/2020 [facility] 10 mg 06/11/2020 12:00:00 AM EDT tablet 90 TAKE 1 TABLET [10MG] BY MOUTH ONCE DAILY TAKE 1 TABLET [10MG] BY MOUTH ONCE DAILY SOLD: 06/15/2020 [facility] 5 mg 06/11/2020 12:00:00 AM EDT tablet 90 TAKE 1 TABLET BY MOUTH EVERY DAY TAKE 1 TABLET BY MOUTH EVERY DAY SOLD: 09/18/2020 [facility] 88 mcg 03/17/2020 12:00:00 AM EDT tablet 90 TAKE 1 TABLET [88MCG] BY MOUTH ONCE DAILY TAKE 1 TABLET [88MCG] BY MOUTH ONCE DAILY SOLD: 03/17/2020 [facility] 88 mcg 03/17/2020 12:00:00 AM EDT tablet 90 TAKE 1 TABLET [88MCG] BY MOUTH ONCE DAILY TAKE 1 TABLET [88MCG] BY MOUTH ONCE DAILY SOLD: 06/15/2020 [facility] 500 mg 03/17/2020 12:00:00 AM EDT capsule 30 TAKE 1 CAPSULE BY MOUTH THREE TIMES A DAY FOR 10 DAYS TAKE 1 CAPSULE BY MOUTH THREE TIMES A DAY FOR 10 DAYS SOLD: 03/17/2020 [facility] 25 mg 03/15/2020 12:00:00 AM EDT tablet 90 TAKE ONE TABLET BY MOUTH ONCE DAILY TAKE ONE TABLET BY MOUTH ONCE DAILY SOLD: 06/15/2020 [facility] 10 mg 03/15/2020 12:00:00 AM EDT tablet 90 TAKE ONE TABLET BY MOUTH EVERY DAY TAKE ONE TABLET BY MOUTH EVERY DAY SOLD: 03/16/2020 [facility] 40 mg 03/15/2020 12:00:00 AM EDT tablet,delayed release (DR/EC) 90 TAKE ONE TABLET BY MOUTH ONCE DAILY TAKE ONE TABLET BY MOUTH ONCE DAILY SOLD: 06/15/2020 [facility] 40 mg 03/15/2020 12:00:00 AM EDT tablet,delayed release (DR/EC) 90 TAKE ONE TABLET BY MOUTH ONCE DAILY TAKE ONE TABLET BY MOUTH ONCE DAILY SOLD: 03/16/2020 [facility] 25 mg 03/15/2020 12:00:00 AM EDT tablet 90 TAKE ONE TABLET BY MOUTH ONCE DAILY TAKE ONE TABLET BY MOUTH ONCE DAILY SOLD: 03/16/2020 [facility] 10 mg 03/15/2020 12:00:00 AM EDT tablet 90 TAKE ONE TABLET BY MOUTH EVERY DAY TAKE ONE TABLET BY MOUTH EVERY DAY SOLD: 06/15/2020 [facility] 500 mg 02/20/2020 12:00:00 AM EDT tablet extended release 12 hr 60 TAKE 1 TABLET BY MOUTH TWICE DAILY TAKE 1 TABLET BY MOUTH TWICE DAILY SOLD: 05/22/2020 [facility] 500 mg 02/20/2020 12:00:00 AM EDT tablet extended release 12 hr 60 TAKE 1 TABLET BY MOUTH TWICE DAILY TAKE 1 TABLET BY MOUTH TWICE DAILY SOLD: 03/21/2020 [facility] 500 mg 02/20/2020 12:00:00 AM EDT tablet extended release 12 hr 60 TAKE 1 TABLET BY MOUTH TWICE DAILY TAKE 1 TABLET BY MOUTH TWICE DAILY SOLD: 02/21/2020 [facility] 500 mg 02/20/2020 12:00:00 AM EDT tablet extended release 12 hr 60 TAKE 1 TABLET BY MOUTH TWICE DAILY TAKE 1 TABLET BY MOUTH TWICE DAILY SOLD: 06/25/2020 [facility] 1,250 mcg (50,000 unit) 02/02/2020 12:00:00 AM EDT capsule 3 TAKE 1 CAPSULE BY MOUTH ONCE A MONTH TAKE 1 CAPSULE BY MOUTH ONCE A MONTH SOLD: 05/10/2020 [facility] 1,250 mcg (50,000 unit) 02/02/2020 12:00:00 AM EDT capsule 3 TAKE 1 CAPSULE BY MOUTH ONCE A MONTH TAKE 1 CAPSULE BY MOUTH ONCE A MONTH SOLD: 02/10/2020 [facility] 5 mg 12/15/2019 12:00:00 AM EST tablet 90 TAKE ONE TABLET BY MOUTH EVERY DAY TAKE ONE TABLET BY MOUTH EVERY DAY SOLD: 03/16/2020 [facility] 5 mg 12/15/2019 12:00:00 AM EST tablet 90 TAKE ONE TABLET BY MOUTH EVERY DAY TAKE ONE TABLET BY MOUTH EVERY DAY SOLD: 12/18/2019 [facility] 10 mg 12/02/2019 12:00:00 AM EST tablet 90 TAKE ONE TABLET (10MG) BY MOUTH ONCE DAILY TAKE ONE TABLET (10MG) BY MOUTH ONCE DAILY SOLD: 03/16/2020 [facility] 10 mg 12/02/2019 12:00:00 AM EST tablet 90 TAKE ONE TABLET (10MG) BY MOUTH ONCE DAILY TAKE ONE TABLET (10MG) BY MOUTH ONCE DAILY SOLD: 12/18/2019 [facility] 88 mcg 09/23/2019 12:00:00 AM EDT tablet 90 TAKE ONE TABLET BY MOUTH EVERY DAY TAKE ONE TABLET BY MOUTH EVERY DAY SOLD: 12/26/2019 [facility] 25 mg 09/12/2019 12:00:00 AM EDT tablet 90 TAKE ONE TABLET BY MOUTH ONCE DAILY TAKE ONE TABLET BY MOUTH ONCE DAILY SOLD: 12/18/2019 [facility] 10 mg 09/12/2019 12:00:00 AM EDT tablet 90 TAKE ONE TABLET BY MOUTH EVERY DAY TAKE ONE TABLET BY MOUTH EVERY DAY SOLD: 12/18/2019 [facility] 40 mg 09/12/2019 12:00:00 AM EDT tablet,delayed release (DR/EC) 90 TAKE ONE TABLET BY MOUTH ONCE DAILY TAKE ONE TABLET BY MOUTH ONCE DAILY SOLD: 12/18/2019 [facility] 24 HR Isosorbide Mononitrate 30 MG Exten ded Release Oral Tablet Isosorbide Mononitrate ER 30 MG Oral Tablet Extended Release 24 Hour (IMDUR) Isosorbide Mononitrate ER 30 MG Oral Tablet Extended Release 24 Hour (IMDUR) 08/31/2019 12:00:00 AM EDT aborted [facility] 1,250 mcg (50,000 unit) 07/02/2019 12:00:00 AM EDT capsule 3 TAKE 1 CAPSULE BY MOUTH ONCE A MONTH TAKE 1 CAPSULE BY MOUTH ONCE A MONTH SOLD: 11/06/2019 [facility] 24 HR Isosorbide Mononitrate 30 MG Extended Release Or al Tablet ISOSORBIDE MONONITRATE 06/04/2019 12:00:00 AM EDT tablet extended release 24 hr 90 TAKE ONE TABLET BY MOUTH EVERY DAY TAKE ONE TABLET BY MOUTH EVERY DAY SOLD: 12/05/2019 [facility] Esomeprazole 40 MG Delayed Release Oral Capsule esomeprazole (NEXIUM) 40 MG capsule esomeprazole (NEXIUM) 40 MG capsule 40 mg Oral aborted Take 40 mg by mouth. [facility] Insurance Providers Payer name Policy type / Coverage type Policy ID Covered alliance party ID Covered alliance party's relationship to martel Policy Martel Plan Information MEDICARE COMPLETE [id number] SP [id number] MEDICARE COMPLETE-[facility] O [id number] S [id number] [facility] MEDICARE [id number] Malena [id number] 20 [facility] MEDICARE COMPLETE G [id number] Self [id number] [employer] P [id number] S [id number] [employer] P [id number] S [id number] [place] [id number] [place] [id number] MEDICARE [id number] SP [id number] A [facility] MEDICARE-O/P [id number] 18 [id number] MEDICARE COMPLETE [id number] SP [id number] [facility] O [id number] S [id number] UNITED HE[employer]CARE O [id number] S [id number] MEDICARE COMPLETE-[facility] O [id number] S [id number] [facility] MEDICARE [id number] Malena [id number] 20 United HLCR/Medicare Solu Commercial [id number] Self [id number] [facility] Medicare Solutions F [id number] SELF [id number] [facility] Medicare Solutions F [id number] SELF [id number] United HLCR/Medicare Solu Commercial [id number] Self [id number] United HLCR/Medicare Solu Commercial [id number] Self [id number] [facility] [place] [id number] 18 [id number] Problems, Conditions, and Diagnoses Code Display Name Description Problem Type Effective Dates Data Source(s) 576702195 Pure hypercholesterolemia Pure hypercholesterolemia Pr oblem 08/05/2020 12:00:00 AM EDT [facility] ([facility] ) 12592129 Essential hypertension Essential hypertension Problem 08/05/2020 12:00:00 AM EDT [facility] ([facility] ) 94703407 Essential hypertension Essential hypertension Problem 02/09/2020 12:00:00 AM EDT [facility] ([facility]) 09673535 Hypothyroidism Hypothyroidism Problem 02/09/2020 12:00: 00 AM EDT [facility] ([facility]) [id number] Ingrowing nail Ingrowing nail Problem 02/09/2020 12:00: 00 AM EDT [facility] ([facility]) Corns and callosities Corns and callosities Problem 02/09/2020 12:00:00 AM EDT [facility] ([facility]) Cellulitis of unspecified toe Cellulitis of unspecifie d toe Problem 02/09/2020 12:00:00 AM EDT [facility] ([facility]) 36593718 Pain in limb Pain in limb Problem 02/09/2020 12:00:00 A M EDT [facility] ([facility]) [id number] Plantar nerve lesion Plantar nerve lesion Problem 02/09/2020 12:00:00 AM EDT [facility] ([facility]) 49912380 Tarsal tunnel syndrome Tarsal tunnel syndrome Problem 02/09/2020 12:00:00 AM EDT [facility] ([facility]) I10 Essential (primary) hypertension Essential (primary) h ypertension Diagnosis 08/09/2020 11:08:01 AM EDT [facility] I25.83 Coronary atherosclerosis due to lipid ri ch plaque Coronary atherosclerosis due to lipid ri Diagnosis 08/09/2020 11:08:01 AM EDT [facility] I25.10 Atherosclerotic heart diseas e [place] coronary artery without angina pectoris Atherosclerotic heart disease of [place] Diagnosis 08/09/2020 11:08:01 AM EDT [facility] Z4889 Encounter for other specified surgical a ftercare Encounter for other specified surgical aftercare Diagnosis 02/16/2020 04:16:00 PM EDT [facility] L603 Nail dystrophy Nail dystrophy Diagnosis 02/09/2020 02:35: 00 PM EDT [facility] L84 Corns and callosities Corns and callosities Diagnosis 02/09/2020 02:35:00 PM EDT [facility] G5750 Tarsal tunnel syndrome, unspecified lowe r limb Tarsal tunnel syndrome, unspecified lower limb Diagnosis 02/09/2020 02:35:00 PM EDT [facility] N93679 Cellulitis of unspecified toe Cellulitis of unspecifie d toe Diagnosis 02/09/2020 02:35:00 PM EDT [facility] G5761 Lesion of plantar nerve, 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, right lower limb Diagnosis 02/09/2020 02:35:00 PM EDT [facility] [id number] Pain in right foot Pain in right foot Diagnosis 02:35:00 PM EDT [facility] Surgeries/Procedures Procedure Description Date Indications Data Source(s) BASIC METABOLIC PANEL CALCIUM TOTAL BASIC METABOLIC PANEL STAT 07/08/2020 8:19 AM EDT 07/08/2020 08:19:00 AM EDT [facility] BLOOD COUNT COMPLETE AUTOMATED CBC STAT 07/08/2020 8:19 A M EDT 07/08/2020 08:19:00 AM EDT [facility] [employer] 02/09/2020 12:00:00 AM EDT [facility] ([facility]) Results ID Date Data Source [id number] 08/10/2020 08:18:53 AM [facility] INFORMATIONPatient MRN Name Date of Age Gend*PT [id number] Josefina Vazquez 1945 75 years F ---PT Location Admission Date/Time Visit ID Attending Provider --- --- --- --- EPI ID CSN Admitting Provider [id number] ---Cardiology Office NoteName: Josefina Vazquez Gender: femaleDate of : 1945 Age: 75 yearsPrimary Care Provider / Referring Physician: GOSIA MCNALLYurrent HistoryChief Complaint: Yearly follow-upHPI:This patient is a 75 years female presents today for follow-up. She has thefollowing medical problem list:1. Known CAD with previous LAD stenting and stable moderate disease in [employer] coronary; plain treadmill stress test done August 15, 2019 at 's office was negative for ischemia2. Tobacco use and abuse but currently abstained3. Hypertension4. Hyperlipidemia5. Basal artery aneurysm of 9 mm treated with web embolization 09/26/2019 andfollow[facility] presents today for follow-up. Overall, she tells me that she has beenfeeling well. She has had some unfortunate events in her family which iscausing her lots of stress but overall is feeling well physically. She did havea stress test in July 2019. She denies any unrelieved chest pain orangina. She is very happy with Ranexa. She has not required any sublingualnitroglycerin. She denies any shortness of breath, PND, orthopnea, lowerextremity edema or weight gain. Her EKG today reveals sinus bradycardia and nonew changes. Primary care does follow her blood work including her lipids.Review of Systems General Denies dizziness or lightheadedness. Denies any recent, unexpectedweight changes. HEENT Denies any loss or change of vision. Denies tinnitus. Respiratory Denies PND, orthopnea, OMER, hemoptysis, cough, or shortness ofbreath. Cardiac Denies chest pain or pressure, denies palpitations GI Denies melena, hematochezia, nausea, or vomiting. MS Denies any lower extremity edema. Neuro Denies speech, motor, or sensory impairment. Psych Denies depression or anxiety. Endo Denies polyuria or polydipsia, denies temperature intolerance. Derm Denies diaphoresis, non-healing skin woundsPast HistoryPast Medical History:Diagnosis Date Anxiety Arthritis Chest pain 11/25/2014 Coronary artery disease Depression Diverticulosis GERD (gastroesophageal reflux disease) Hiatal hernia 11/25/2014 HTN (hypertension) 11/25/2014 Hypercholesteremia 11/25/2014 Hypothyroidism 11/25/2014 Neck pain Osteoarthritis Pulmonary nodule No change; follows with PCP Sleep apnea CPAP; "pillow"Past Surgical History:Procedure Laterality Date cataract Bilateral CERVICAL BIOPSY W/ LOOP ELECTRODE EXCISION 3 times CORONARY STENT PLACEMENT 11/25/2014 EYE SURGERY HYSTERECTOMY Bilateral 10/04/2016 Procedure: HYSTERECTOMY LAPAROSCOPIC TOTAL W TUBES OVARIES BILATERAL ;Surgeon: Sebastien Horvath MD; Location: [facility]; Service: Gynecology;Laterality: Bilateral; TUBAL LIGATION 1972Family HistoryProblem Relation Age of Onset Stroke Mother Heart attack FatherSocial HistorySocioeconomic History Marital status: Spouse name: Not on file Number of children: Not on file Years of education: Not on file Highest education level: Not on fileOccupational History Not on fileSocial Needs Financial resource strain: Not on file Food insecurity: Worry: Not on file Inability: Not on file Transportation needs: Medical: Not on file Non-medical: Not on fileTobacco Use Smoking status: Former Smoker Packs/day: 1.00 Years: 40.00 Pack years: 40.00 Types: Cigarettes Last attempt to quit: 11/01/2014 Years since quittin.7 Smokeless tobacco: Never UsedSubstance and Sexual Activity Alcohol use: Yes Comment: White [place] every Sunday. Drug use: No Sexual activity: Not on fileLifestyle Physical activity: Days per week: Not on file Minutes per session: Not on file Stress: Not on fileRelationships Social connections: Talks on phone: Not on file Gets together: Not on file Attends amish service: Not on file Active member of club or organization: Not on file Attends meetings of clubs or organizations: Not on file Relationship status: Not on file Intimate partner violence: Fear of current or ex partner: Not on file Emotionally abused: Not on file Physically abused: Not on file Forced sexual activity: Not on fileOther Topics Concern Not on fileSocial History Narrative Not on fileMedications and AllergiesALLERGIES/SENSITIVITIES: Patient has no known drug allergies.Current Outpatient Medications: amLODIPine (NORVASC) 5 MG tablet, Take 5 mg by mouth daily , Disp: , Rfl: aspirin 81 MG chewable tablet, Chew 81 mg daily, Disp: , Rfl: cholecalciferol (VITAMIN D3) 400 UNITS CAPS, Take 400 Units by mouth daily,Disp: , Rfl: hydrochlorothiazide (HYDRODIURIL) 25 MG tablet, Take 25 mg by mouth daily ,Disp: , Rfl: hydrOXYzine (VISTARIL) 50 MG capsule, , Disp: , Rfl: levothyroxine (SYNTHROID, LEVOTHROID) 100 MCG tablet, , Disp: , Rfl: meclizine (ANTIVERT) 25 MG tablet, , Disp: , Rfl: pantoprazole (PROTONIX) 40 MG tablet, Take 40 mg by mouth daily, Disp: , Rfl: PARoxetine (PAXIL) 20 MG tablet, Take 20 mg by mouth daily , Disp: , Rfl: rosuvastatin (CRESTOR) 10 MG tablet, Take 10 mg by mouth daily, Disp: , Rfl: tiZANidine (ZANAFLEX) 4 MG tablet, Take 4 mg by mouth nightly , Disp: , Rfl: vitamin B-12 (CYANOCOBALAMIN) 500 MCG tablet, Take 500 mcg by mouth daily,Disp: , Rfl: nitroglycerin (NITROSTAT) 0.4 MG SL tablet, Place 1 tablet (0.4 mg total)under the tongue every 5 (five) minutes as needed for chest pain, Disp: 25tablet, Rfl: 3 ranolazine (RANEXA) 500 MG 12 hr tablet, Take 1 tablet (500 mg total) bymouth 2 (two) times a day, Disp: 60 tablet, Rfl: 5PhysicalBMI: Body mass index is 24.46 kg/m .Blood Pressure: BP: 116/74 Pulse: Heart Rate: 67Temperature: Temp: 97.2 F Respirations: Resp: 18 Weight: Weight: 66.7 kg (147 lb) O2 Saturation: SpO2: 98 %Physical Exam General Well developed, well nourished, no acute distress Neck Soft and supple without lymphadenopathy or thyromegaly. No JVD. Nobruits. Lungs Clear to auscultation, no crackles, rhonchi, or wheezes Heart Normal S1 S2, no murmurs, clicks, or gallops Musculoskeletal Appears to have normal range of motion x 4 extremities, nojoint swelling. No pedal edema Neuro Alert, orientedx3, no facial asymmetry Derm No rashes, or ulcers Vascular Pulses palpableDiagnosticsLabDone through PCPEKG:EKG Results (Last 72 hours) 08/09/20 1214 POCT AMB EKG Final result Impression: Sinus bradycardia with nonspecific ST and T wave abnormalitiesthat are consistent with previousAssessment & Plan1. Known CAD; she currently denies any chest pain or angina. She is happy withher medications and otherwise is feeling well.2. Hyperlipidemia; she does remain on a statin and this is followed by primarycare3. Hypertension; her blood pressures under good control with current medicaltherapyI will have the patient return to the office in 1 years time for follow-up orsooner if need arises. She knows to contact our office in the interim if shehas any signs or symptoms of cardiovascular concern.We appreciate the opportunity to care for this patient.Signature: Jessica Quintero NPDate: August 09, 2020Time: 12:14 PMThis document or parts of this document, were dictated using [employer]. A reasonable attempt at proofreading has been made to minimize errors.Please call with any questions or corrections. Name Value Range Interpretation Code Description Data Damari rce(s) Supporting Document(s) ID Date Data Source [id number] 07/27/2020 12:31:32 PM EDT [facility] Name Value Range Interpretation Code Description Data [facility] Supporting Document(s) Progress Note [facility] [id number] [facility] [file] AgICAgICAgICAgICAgICAgICAgICAgICAgICAgICAg ICAgICAgICAgICAgICAgICAgICAgICAgICAgICAgICAgICAgICAgICAgICAgICAgICAgICAgICAgICAN CiAgICAgICAgICAgICAgICAgICAgICAgICAgICAgICAgICAgICAgICAgICAgICAgICAgICAgICAgICAg ICAgICAgICAgICAgICAgICAgICAgICAgICAgICAgIC AgICAgICAgICANCiAgICAgICAgICAgICAgICAgICAgICAgICAgICAgICAgICAgICAgICAgICAgICAgIC AgICAgICAgICAgICAgICAgICAgICAgICAgICAgICAgICAgICAgICAgICAgICAgICAgICANCiAgICAgIC AgICAgICAgICAgICAgICAgICAgICAgICAgICAgICAg ICAgICAgICAgICAgICAgICAgICAgICAgICAgICAgICAgICAgICAgICAgICAgICAgICAgICAgICAgICAg ICANCiAgICAgICAgICAgICAgICAgICAgICAgICAgICAgICAgICAgICAgICAgICAgICAgICAgICAgICAg ICAgICAgICAgICAgICAgICAgICAgICAgICAgICAgIC AgICAgICAgICAgICANCiAgICAgICAgICAgICAgICAgICAgICAgICAgICAgICAgICAgICAgICAgICAgIC AgICAgICAgICAgICAgICAgICAgICAgICAgICAgICAgICAgICAgICAgICAgICAgICAgICAgICANCiAgIC AgICAgICAgICAgICAgICAgICAgICAgICAgICAgICAg ICAgICAgICAgICAgICAgICAgICAgICAgICAgICAgICAgICAgICAgICAgICAgICAgICAgICAgICAgICAg ICAgICANCiAgICAgICAgICAgICAgICAgICAgICAgICAgICAgICAgICAgICAgICAgICAgICAgICAgICAg ICAgICAgICAgICAgICAgICAgICAgICAgICAgICAgIC AgICAgICAgICAgICAgICANCiAgICAgICAgICAgICAgICAgICAgICAgICAgICAgICAgICAgICAgICAgIC AgICAgICAgICAgICAgICAgICAgICAgICAgICAgICAgICAgICAgICAgICAgICAgICAgICAgICAgICANCi AgICAgICAgICAgICAgICAgICAgICAgICAgICAgICAg ICAgICAgICAgICAgICAgICAgICAgICAgICAgICAgICAgICAgICAgICAgICAgICAgICAgICAgICAgICAg ICAgICAgICANCjw/rKVsS5jgpTMmauO8Q9eeXf6ZBk6OHP5cc1FjKLXzQQsfpoYtPhbDZmTiOHPbRzpA Xzh0SMtpKO5QcSHfK6IdU7NlGEecOG5HEMVdTUYnxD ItAUDbVCMdSjZ5EUIfXXdyCQ8YjJRzBEhtHIJfKWYgFkJgVNVnLQXwYCIgRH9URNYoV206qlAvRw3CJn 9DIvNnHG6vqa9LUzTmZJAnNuaPJxc0EJxuAZ5WbKJjfYYgJlXzEEFNYyEgE6rnb6BhZkxuAVDPKQnnDR 4Qx6EbaACyJXa+Wh9INY6yr3DmINmmRqVmOP4okx2K CZyWFzMeD9NutBzlGVLyl4jqLJItKY3fdUDkIRA4BQB4l0XjDYxbX8X5T9ecXZAXCZF6FEcyEJ3nDATm HGTcVpU7DSENQI0TZTDcINBsfWGmCAKhRNXMZH2BRUkxGTT3JJFmtyPbvNQeHQciBV9WCLJsjrNbHcLv MCBSDQo+Dk6TNT6bh8IbSQllBMXrEZ7usd3BAKjOBq NgR2U2wCIgE3E9VBtaJo0KDQObFDGxKcItSHBVAWtyUM2JEQ6vzbG8DA5KcEFiQRCxVNMgbVLgUYm1M7 8ylHYxNOcuXO8XCOB+Pb+Vo4NAVKxSHFeFRJbGgXaCBNLWtGrH1FbS8CNz2JoR2CdRW88tJouvaNwUY rfCJ4NWA3pDOBhBEHRLZ6GsZXowP9uwuFgIkGtHREI OjQmM71wpYEjLJZfUVZ6VAIeQp4BQBFvL3QezcVwcZgxuoGbUMLoCZVDSP4DATpugvOfsCRtfKdvNA66 tSofEX4KAy5NYxZsEI5lfi7AyTMlBc7GMTZoHP0SHHKaDNPwVREnXBX2QBFhHrNqCFngRJBzFVSaQKB9 CWErRFVmFN2CUyVbHTLoOxC8TggaBUKaSSAreq5XDQ WnRKKyMlK8PqTtNVEdRIAoJTnbAKPyIERyLRA8GVZbNPPzMC9ZRlBlCBDqWDHkDgKhPAQoFKZtzj5KKB XxIMPpRJDxKrAoPAEjJPNbKDvlOZXrHDX0EKWcDVEdAOAbLO3MEsFtTYKiVYzzEFYjIXNxJLSmjf0KMF AcXDRsSOD8VjVxNERqRTKtMMqfWICyYYO4ElpxLOYf OWRuOA8QJtQhRUMfMPshOrRvAFVcMSSdvw4USLFbMBWkTZScBEFzIISqUGQfABqdMFQcNYP7XlErDRDh KFImRB2GBlOsGYXpAAR9GoLrNEEcELDaos0UEDLtBOXpCPc6FbMrCXZqUYVnFNfrOMQzLMCuACZfFQTv SRWyZN4WXyFoFCUnFbT9WVWcPNBtBRDmei8VRCPgSO CrHhcyNDUiHEBsYBBtSTkzYYVaBBBmTON2LHRqXWMgAP2MUjBoVZGuJyDsXgKhAWPrPIOpsw3VKEZzSO CqUnAcDLUoJCCzPPOnJEevRISvVUR5PcF4NCBrTVOhKV3JQmZxZVMpAlL5VAKhEIYsGSQrmt5TVFOvRK MmVWerEdSuHQHdLJPkBKnaMAVrUWM3WJTsHBKmYDMh EK4QHrRoKMFcGeT8YHXnNPBdXULtod6EGWXzYELmMfM8LKJrJQJmJALkCDjoIMKkXSF2LAOjEQKwHPUz EB7YEiIaSApfUOJLSze1WBbfX5t1QANxAU9UC1Wzy6GnJogkSGDEMNucDO1zroNiDDFvFf6TA5hKTrdv HQH2URSoBEV4E3KiPYD0Xcl4SmO7TrC4PLtmJtR4Wp 1yZTZ7JwN7MMWcVYI9ADY2PGLwTKx3NSYbPwOaA9QxEDXtGjMgRJ8GQo4CCsN9VMQ7jVUgPz7GUrxiJK PUQdVdHH4MVTz= ID Date Data Source [id number] 07/22/2020 12:58:36 PM EDT [facility] IR ARTERIOGRAM CEREBRALFINAL RESULTInter preted by:Fang Frazier, MOISESreoperative diagnosis: 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 Distal transradial diagnostic cerebral angiogram with ultrasound-guided access to distal right radial artery2. Selective right vertebral artery angiogram x23. Right subclavian artery angiogram4. Right radial artery angiogram5. Supervision and interpretationSurgeon: aFng Frazier M.D.[employer] Worker: Swapna Hernandez M.D.Anesthesia: Moderate conscious sedation monitored by an independent, trained observer qualified to monitor the patient for 45 minutes Complications: No neTotal fluoroscopy time/dose: 5.1 minutes; 302.6 mGyContrast: Omnipaque-300, 35 mLIndications for the procedure: This 75-year-old female underwent web embolization of an unruptured basilar tip aneurysm on 09/26/2019. She presents for follow-up angiogram. I had a long discussion with the patient and family at the bedside detailing the clinical and radiographic findings and options for additional diagnostic testing including transradial diagnostic cerebral angiography under moderate conscious sedation. We specifically discussed the risks of the procedure including but not limited to: Bleeding, infection, hand/wrist/arm hematoma, retroperitoneal hematoma, arterial dissection, injury to limb, loss of hand or arm, contrast dye induced renal failure including need for hemodialysis, allergic reaction, radiation exposure including hair loss and graham, stroke, weakness, pain, numbness, paralysis, difficulty speaking and/or understanding speech, blindness, intracranial hemorrhage, coma, , need for additional procedures. The patient and family verbalized understanding and wished to proceed despite the risks. Informed consent was obtained and witnessed by nursing staff in the holding area.Procedure: The patient was brought directly to the angiography suite and laid supine on the angiography table. The bilateral groins and right anatomic snuffbox was prepped and draped in standard sterile fashion, and we underwent [facility] standard timeout for patient and site verification and communication among all staff. A Barbeau test was performed to confirm patency of the radiopalmar arch prior to sterile preparation. Pulse oximetry was monitored on the right thumb throughout the procedure. The patient was administered Versed and fentanyl in small doses for comfort. The right radial pulse at the snuffbox was palpated, examined under ultrasound, and the surrounding area was anesthetized with subcutaneous injection of 2% lidocaine mixed with nitroglycerin. The right radial artery was accessed using singlewall access technique under direct ultrasound visualization. A 5 Kiswahili radial glide sheath was placed using Seldinger technique. The sheath was secured in place with Tegaderm, it was back bled and flushed and connected to a continuous heparinized pressurized bag of saline at a slow constant drip rate. The patient was slowly administered 2.5 mg verapamil in 1 ml and 200 mcg nitroglycerin in 2 ml into the right radial artery through the radial glide sheath after dilution with arterial blood. Intravenous bolus of 3000 units of heparin was administered for thromboembolic prophylaxis. Subsequently, a 5 Kiswahili angled glide catheter was advanced through the radial sheath under fluoroscopic guidance over the 035 glide wire to the level of the right subclavian artery where roadmap views were obtained after the wire was removed and the catheter was flushed. Roadmap views of the right subclavian artery demonstrate no evidence of significant stenosis or tortuosity of the right vertebral artery. Under roadmap views, the right vertebral artery was selectively catheterized over the Glidewire. The wire was removed, the catheter was flushed, and flow was checked. Selective right vertebral artery angiography was performed in [place] and lateral views over the posterior intracranial circulation followed by magnified views over the aneurysm/web device to replicate working views from the prior embolization procedure. Selective right vertebral artery angiography demonstrates complete occlusion of the basilar tip aneurysm with contrast filling into the region of the web recess only. The lumen of the basilar artery and bilateral posterior cerebral arteries is preserved. The remainder of the vertebrobasilar circulation is preserved and unchanged compared to prior angiography.Subsequently, the catheter was withdrawn while injecting contrast. There is no evidence of contrast stasis, arterial dissection, or complication related to selective right vertebral artery angiography. The catheter was pulled back to the right subclavian artery where right subclavian artery angiography was performed over the chest, neck, and right arm demonstrating no evidence of access complication. Subsequently, the c atheter was pulled back to the radial sheath. Right radial artery angiography was performed in AP view. Right radial artery angiography demonstrates no evidence of access complication and occlusion of the right radial artery at the level of the sheath, with normal appearance of the right brachial and ulnar arteries. Subsequently, after secondary review of all images, the radial sheath was removed with placement of a Prelude Sync distal compression band, and hemostasis was obtained. The patient remained neurologically at baseline with a stable vascular examination of the right upper extremity post procedure. I was present for, and performed the entire procedure. There were no apparent complications. I immediately discussed the results of the procedure with the patient's family in the waiting room.Summary: Distal transradial diagnostic cerebral angiogram demonstrates complete occlusion of basilar tip aneurysm with contrast filling into the WEB recess only status post WEB embolization.This document has been electronically signed by Fang Frazier MD on 07/22/2020 12:56 PM Name Value Range Interpretation Code Description Data Damari rce(s) Supporting Document(s) ID Date Data Source [id number] 07/08/2020 12:56:33 PM [facility] Name Value Range Interpretation Code Description Data Damari rce(s) Supporting Document(s) Progress Note [facility] QBLZYd5tHcDQOfTn73/AHCfjMYHqx4KvKRnyAHk3OYorHAMjV1ZjOZH0uZ6sIQL6JWnAGkPuPsHvFZNe lbm [file] ICAgICAgICAgICAgICAgICAgICAgICAgICAgICAgICAgICAgICAgICAgICAgICAgICAgICAgICAgICAg AQCrHCUfCVNdIVTkIYAiLHGrCP7WRJFoETZhFGRqZL AgICAgICAgICAgICAgICAgICAgICAgICAgICAgICAgICAgICAgICAgICAgICAgICAgICAgICAgICAgIC ArTQBhSGLjYOLqUXZlARPnMNHrQHWrMEMkRWKbDT9YJWNvMTTwCGCrJGEnHRRnDKWwVBClDAXiQHChII AgICAgICAgICAgICAgICAgICAgICAgICAgICAgICAg TNCwOPZaNDBbPYQkMEOnCOEuPXGuQTRpIARtAMMmDOAtOZCcTRLqVY9DPCVeHHNwRSGdSNQgECIyFSXj ICAgICAgICAgICAgICAgICAgICAgICAgICAgICAgICAgICAgICAgICAgICAgICAgICAgICAgICAgICAg DDIeMDDoDCDvXPDuNONzHINiOKDtIW5NRTSjITAlCZ AgICAgICAgICAgICAgICAgICAgICAgICAgICAgICAgICAgICAgICAgICAgICAgICAgICAgICAgICAgIC GoEYRwTCKyMDMtRXWzDYRoDXBxOQKtMDGnQTNuMPYuLN8SZGMrWFVfYWUdLJMsFCAyLNZiSBAiRDNsKB AgICAgICAgICAgICAgICAgICAgICAgICAgICAgICAg WSJrXYKrTJKbKEBzAJBgKPAvMYLxTIWjQGIqNMHhYDDmUTWlVGDgSAYpNT6JDFYbXPKsJFVrPSVoIJUb ICAgICAgICAgICAgICAgICAgICAgICAgICAgICAgICAgICAgICAgICAgICAgICAgICAgICAgICAgICAg ABSuUCRrXXKcNJRdAORdMSHxAMVfLPCzVH4RSTOoJQ AgICAgICAgICAgICAgICAgICAgICAgICAgICAgICAgICAgICAgICAgICAgICAgICAgICAgICAgICAgIC CeDXAcETWyAROgDZTsRJFvPFWdNZPgTJBfPOZsYIFhNEBkSE5YQNVtFMTePBHlKGDoPXAyIHDgESLhUD AgICAgICAgICAgICAgICAgICAgICAgICAgICAgICAg SXVoXMUgFKKcIUBrARCbPNCkOAHhKQQnDKNbEYUqXMPvPHTsYFBdXENhHZNxKU4DTNOcOFGhRJYdSVZi ICAgICAgICAgICAgICAgICAgICAgICAgICAgICAgICAgICAgICAgICAgICAgICAgICAgICAgICAgICAg ZDUgDBCuMDOmIMCuAEKwGWPxVRIsYVViBOTdCV3VSV 56cCFee5M2BIQaTT0bmyf/Fm5CEWjhwxNquZYaQN5MKuVmZT1jzr8LWgNpTL6pgj4IIQjQEnLkJ6W5yZ DfPOMpDQMXOfJbA42pLFvlTv90UMilWLPnZmStOYn0Pw8BCgAjF7blSKUyNrA3DTSlJbAmPJowID3Pl2 VudCAxDQo+Pq3YIV7ft9JrRNobLQReOV5aqb5RNQeW IoLaZ0QprqJ5UYM3EEXlVm8QAZHmAYQodWSaWRXoYCITQfGeB2AtnT30KLHJVc2+DQplbmRvYmoNCjE1 OENsd4HdXIy6FH6ZEWKjOMj3hFOpMWZoJ0Nda5KaRe29GYLdRbmgSPotPNHzCsPHQOXcl1EeXojhAf4o UCEiWA5aMc4dZCHyKSCzYcE9MCCIHZ6HGZKpJGGazX OcARKoXIZTPW2ZOChuCDZ6MDXyloBvwWVdCPxsBO6WDFIikkBsDRGzEIUTTCe+Ya5AXQ8dj5FpPMwkMc RqQP2upi6UENrKDdGwR2X6gADdQ4O0TKezHv4PHPVhWDGpIIBoUXYIAWrqRX3ZYS2pvdB0NP8EiHVmCL IcBRAcrXMkVCh4T97efJEbDAtgQO0EHNN+Pb+Pg0K QJItIDLmNXKsTyTeTBMEVzFgK9WtJ4WTv5SlJ3XhEF80jDyfjxOwBVgaTR5UDT5lRBTvHLGVAL0EbNZb jY8gzkAwAFYjABMZWiYmB56piMCoMUYeQRBrAXPiZh1YBFLnF9XyhsTzmHgtggAjQPSaYCJXVH3VNTkz vmZevBGlkDepTS98fLmtQZ0DRy2FQsQoJA0tjs2IeL AcEq2QWFIuWk9AZQJlAWRdUEVbKJO7XCEeSxKjJUeqJSZoHFRmMZG4ZVXaEYPaUW1LDbBmIDAhPSY5Qs NyTJWsVLIbxz1FZGKyJKMxLxR2LOZmLQAbUNByZSqdYTQvBVVzQTG1NDPmFNGuEC6GRiTrQXAyGSE7El OwCRIiNGEfzi4GDWVlILRsQtNoMZTqIJHaNLPfQLgc TOPfDPGdPPk7WQGaSHMuJA6PDsWrXCZbQJFoHDHjDOIkRQAbtm8YDOLkKWMcYiZ3RDWgTBZnECDrNGxa GQSfYBH9YQEfJLFqPQMzDP8GCmReOHVlPHL3DkXiFWNmOHXpep9RCDYyLTGlNNukDNQqAFFwGJDhKTww AVPoWYZ5RiV4PSLsQCLjJW4MSmHdOSKdJSI4DGHyUH UxBGXxxz4MQVZdOFVcMjauYSMyOSQpMOWoEWhfBNEfGIA7MQn4MBQaLMXpIA5JZxUbZOmhFMXFZdl8BG ceL9k7FDJkRn6KT4Als9NcOJNeYFVRUEdkIO4vfhDcGJQfEh3EO3pPCiy0H7GtXoLiINQyGfPjBzzkTy JsFpQ5YmPrZNZwBJH3JL6sUEcuYnN3DVP5JSJjNDA0 ReHwTVWpKKDlCHZzRCNaHDw1PrOmCO1RLo0JMfL6BWF5oKIyMc2QSbIkEL9DLIWEV3TZQl== ID Date Data Source [id number] 07/08/2020 09:53:03 AM EDT [facility] Name Value Range Interpretation Code Description Data Damari e(s) Supporting Document(s) History and Physical [facility] YQYXTv8fOiGASwRm95/IBPelUXGls6YnSUtrMPs5XCkdJAWoT2SmBEO3lA4qDON3ZVaZIfPyZiZwPVDv lbm OtGycIIcWjQEWoBzsNPsXfDSavNootrLCnGP1CfJQ4LYVlK12cOJKrHXZhS1AdULM4GdP+Uv3FMVWrhB MeYQ3QEayD8U2wc8y9Nl2+M/icZUBckjNL3sMUV6/NwAfvJgvVQQ0tLps06AeOieV3apjUkfixe9qfbs kTGK4EI9TKzEhkqw6CQEC1L+t7KpQYeX14WjLG34Fp Ufy3+NECztn8DJ/5c4rDG3VfiOyiJJj2PH7WDdgK2l+V++dGmhHu09DfxjqmvGs9ceKRuFGqrdBrBZ4W JLObJHsqXg+ze/QufAgf2jeqRP3GQPL3+/MePzlAuRpVv63qcc5akWayP3OhTxdKw18PPJU3JuSUfWkV Fs91LqDqB0u93vCngDQdohSwy0ruC/nKRznSnVzYsk Hk2uEvx0R7Jyl40THJE+FNC5YbrSgnhQ7DroDOMa3cn6W7R4nHPHdJionDw6dUBg3BHCGEfLfgwAjZSP /2jOxaVSbIe3tLkWZ7DAhRzDqbeAXpBvGhh5Ryeio7cA1W1lBasYQiZmqNma2h6fMMGXCDO1xe1RGI6v yzNxkNWk/I74Yu4UDjQtToL4ME/y+Z36EoZW5qK [file] bMuzzOu+fz18SrbK8itE4AXyuaIsuvm2RNdlP0wxQy0qhgyTHCE9acNKlLYJkSO/kquVhfM5yZyf/[employer] [file] 3FHoItRQALRxGwCF6MVMi= ID Date Data Source [id number] 07/08/2020 08:45:03 AM [facility] Name Value Range Interpretation Code Description Data Damari rce(s) Supporting Document(s) Leukocytes [#/volume] in Blood by Automated count 5.4 10*3/uL 4-10 [facility] Erythrocytes [#/volume] in Blood by Automated count 4.08 10*6/uL 4.1- 5.3 L [facility] Hemoglobin [Mass/volume] in Blood 12.7 g/dL 11.5-15.5 [facility] Hematocrit [Volume Fraction] of Blood by Automated count 37.1 % 3 6-45 [facility] Erythrocyte mean corpuscular volume [Entitic volume] by Auto mated count 91.0 fL 80-96 [facility] Erythrocyte mean corpuscular hemoglobin [Entitic mass] by Automated count 31.0 pg 27-33 [facility] Erythrocyte mean corpuscular hemoglobin concentration [Mass/volume] by Automated count 34.1 g/dL 32.0-[facility].0 [facility] width [Ratio] by Automated count 13.1 % 11.5-14.5 [facility] Platelets [#/volume] in Blood by Automated count 230 10*3/uL 150-400 [facility] ID Date Data Source [id number] 07/08/2020 09:07:49 AM [facility] Name Value Range Interpretation Code Description Data Damari rce(s) Supporting Document(s) Bicarbonate [Moles/volume] in Serum 29 mmol/L 22-29 [facility] Chloride [Moles/volume] in Serum or Plasma 101 mmol/L 98-107 [facility] Creatinine [Mass/volume] in Serum or Plasma 0.78 mg/dL 0.50-0.90 [facility] Glucose [Mass/volume] in Serum or Plasma 106 mg/dL 70-140 [facility] Potassium [Moles/volume] in Serum or Plasma 3.8 mmol/L 3.4-5.1 [facility] Sodium [Moles/volume] in Serum or Plasma 140 mmol/L 136-145 [facility] Urea nitrogen [Mass/volume] in Serum or Plasma 13 mg/dL 8-23 [facility] Anion gap 3 in Serum or Plasma 10 mmol/L 8-15 [facility] Osmolality of Serum or Plasma by calculation 291 mosm/kg 275-300 [facility] Creatinine/Urea nitrogen [Mass Ratio] in Serum or Plasma 17 [facility] Calcium [Mass/volume] in Serum or Plasma 9.3 mg/dL 8.8-10.2 [facility] Glomerular filtration rate/1.73 sq M pre dicted among non-blacks [Volume Rate/Area] in Serum or Plasma by Creatinine-based formula (MDRD) 79 mL/min/1.73m2 >60 [facility] Glomerular filtration rate/1.73 sq M pre dicted among blacks [Volume Rate/Area] in Serum or Plasma by Creatinine-based formula (MDRD) >60 [facility] ID Date Data Source [id number] 07/04/2020 07:34:12 AM [facility] Service nt XXX-Imp : NoneMicroorganism XXX Cult : 2019 nCoV Real-Time RT-PCR: NOT DETECTEDTest performed using the [employer] COVID-19 MDx Assay. This test is only for use under the Food and Drug Administration's Emergency Use Authorization.Additional information is available on the following FDA websites for health care providers and patients. https://www.fda.gov/media/288109/download , https://www .fda.gov/media/757119/download Name Value Range Interpretation Code Description Data Damari rce(s) Supporting Document(s) ID Date Data Source [id number] 07/03/2020 11:19:00 AM [facility] XXX-Imp : NoneMicroorganism XXX Cult : 2019 nCoV Real-Time RT-PCR: NOT DETECTEDTest performed using the [employer] COVID-19 MDx Assay. This test is only for use under the Food and Drug Administration's Emergency Use Authorization.Additional information is available on the following FDA websites for health care providers and patients. https://www.fda.gov/media/017506/download , https://www .[employer].gov/[employer]/953691/download Name Value Range Interpretation Code Description Data Damari rce(s) Supporting Document(s) Microorganism identified in Unspecified specimen by [facility] This lab was ordered by [facility] and reported by [facility]. ID Date Data Source [id number] 07/03/2020 11:18:59 AM EDT [facility] Name Value Range Interpretation Code Description Data Damari rce(s) Supporting Document(s) Progress Note [facility] NHWTNf1hZtPTNlRg17/CEQirCHVeh5CjYIazZPq8YOyzUHVsW0InTKD8gG3nYXV1CEmCKzQkPuRbSYB3 lbm BzXboCFmTgTKSeXiePCkPeEZlvWkocwQHyDU7ZoLZ6JZFgV80iGBAsBTSuG9MqQSD6QQN+Yb6LTJAkoY BkCE9HWhnHsNlws3s7ZV1+YP+PVMNdLoLYgaQwUczOBr3lKzIJY+hKHIks0DmaMeQePX9Bzu0Uwybks8 dqHRn6VU227j9cbKu9uUJo2dcugGYLqPRQpulgEKmV aIZ+/vpWsfgoG0b+OoPAAxQrLIsHzFdGnj/sXiCwDjcTmam9A7SPYzNkZrzBpsESsB1GnUIUncJfJK5l m4PzQR+xgCoq+J3fogu5S7RgwTQ5V1CFjxKeSRwCmTZwWaPmPlw+XHFUkUVl5JdbnZO1zPQQsMWCyC+k 8RORm0CLdaHenx6T5Y5vn+CkmyIQ4dxb6NtDdpR6Uw mF2WjE66nLu/jWz3kabzR7U1bS+PF+Cqp72rieykZz4uXgD8xNUa8TazHTuVBJd9IJLHeUP4zuioRbvW FUENTES/L8fY9bTpE4jiG/1V0W7sCD0oEwrv2eo+40tODsEQLE51x8iKKs5TKVvR71Vuq/vjlstm06lOgZBzF [file] AgICAgICAgICAgICAgICAgICAgICAgICAgICAgICAg QFFjIBWsJMQfTGKpRFUpKDPyOAAeVOUfDMCaVNEbLNWbMREaTF3IOOJiGPCgFETtDXJkWTAsYGEyXFVq ICAgICAgICAgICAgICAgICAgICAgICAgICAgICAgICAgICAgICAgICAgICAgICAgICAgICAgICAgICAg MPNmHWIoIERyOKNqHQZsWHNjRN1SYYDrFIYxWRNnJT AgICAgICAgICAgICAgICAgICAgICAgICAgICAgICAgICAgICAgICAgICAgICAgICAgICAgICAgICAgIC SbRZZmGUVoAVScUFUtZWDxVZPvNKFjUFNdGPHiAT6QNTGkVUVpMFGcXATxKLJxMZRvRBOnPYCaYLUxNP AgICAgICAgICAgICAgICAgICAgICAgICAgICAgICAg CJIeDKNdLMOpVIBaFEDkDJNeSANiIMKgTDRlJTWaMVIyWNDxHSAhWN3ZSPBzZBQlLXBtTWKeRCBxIETb ICAgICAgICAgICAgICAgICAgICAgICAgICAgICAgICAgICAgICAgICAgICAgICAgICAgICAgICAgICAg RFGsSOUpXDIsROEvWOMzDOOuAHGbBQ4CWHGmUBYbBI AgICAgICAgICAgICAgICAgICAgICAgICAgICAgICAgICAgICAgICAgICAgICAgICAgICAgICAgICAgIC EvIQJoJMLfEOXiYLSaTBEsMIXyPLLrUMSsBQErMXLlOX8WMRDeIWVyYCQhEXAzIKOqSADtCKRuQELkXK AgICAgICAgICAgICAgICAgICAgICAgICAgICAgICAg OYXaXSJgRYQwIXBlFTNrZEUkMYFjJQVkPTAzNEYrLFNaEXRmNCUzLAAbJO4XJUXeWNBzPBIcMBYuXJBe ICAgICAgICAgICAgICAgICAgICAgICAgICAgICAgICAgICAgICAgICAgICAgICAgICAgICAgICAgICAg NYFaOMHuGVCuHMLzGHBpXXIbUWDkTCTjUC0YBEAmFG AgICAgICAgICAgICAgICAgICAgICAgICAgICAgICAgICAgICAgICAgICAgICAgICAgICAgICAgICAgIC MyBTIsJVQmFMPmYSSiYRYyIQKpIWHtTLRlRGTfEXJiAGGnIN4YQQEyFFHwOJFtUFFnUGEuXBFkBGNwKK AgICAgICAgICAgICAgICAgICAgICAgICAgICAgICAg QZXyEVJhQNCfTUDiJTCzQWSbQODxPKXaARDaRIAfGVLhTSWuJPSlGMNgISWuTD5ZUA27qSDya8O0TTPq BB9jmau/Nl3FPIvcowRnrDGdQL0HShTlAE1tem4WRbUvDL1fek7ZTHvPGcMjI1S4xWQmHCQnBVGEFtOt V50qUJijZy65FNnqTQBxEkEeWGa3Pm0GCfKcT5nkKY DiGzD0DSEuCzHqSAerNG7Dp5JgyYJaELh+Om5PZM3zi2KxSFtyHKVtSL5eup7OEAuJDfZzE2XcjsX0DA CcSUXkHu7AKHUaCJQnvVGdDCToHBLKKhNgW8TbxU09GZAEKp3+ULoebvFbPdbWRlUrGYQch6GdNIj9TY 0PYTSuXAj6pYAlMDGlU2Uit9XbBc33XBOoJpeyF3Pn MN2hRVHIlXSuJOXwUXEPIAO7FHddBF5mOZBhKJMdAhLkRPPLYP5YAZRdDEGhxKZsCGJvYMZLUB4NRFea MTX4DAWnghZxaEKjBCcaGC3CDSPxvyFnUMikTMKTMYu+Af7KFQ9rl6ZmEQvcFIYbST3wbx3JJMmURkXu Q5R2pRQlH9D0MGezQp8STCTsXZNkFSzqKBVOQWcaNY 1SCD3xisJ7ZE9AvPZiCBObAOZoeTHeXLz4W58ypSRvNMgzGW3YSUB+Pb+Ws2KWQZxMLRmMVZvBaOlCB RLEaGnV9UpD0LCi4UrD9QeEP61sMsyniUhRYbpRS3FKQ8fAFZvKDQIOJ1XaHUmzX5zlgKmYGLcKVIDMs InT26neQYnZMWtXNI3JJLeBq4WHOXzL7YqglHsfSxi rdPeVJJqNAFAHO9DEPaetsXysPDdwDqsFM44cZyeHG3YBp7KFxUeLZ1uul7CbFOqYn9HNXAqCu3GDRYy EFCdTPThVXF1LQJeWyNxVVkmUQVrTRSfDBN5XPMhZZOwEK4JCbVrPTKaFXS7EIIqJMMiHMVqkh2QFUGx YPWzGTX6QyFqAXOhZFHvQQwaMMEaGSMqAGD4FKXpXA TbOA6JGwJzQVMuYHO0UWLaXKBtYVMpki4SBPDyNAUxHEq2VOFxFFDmUPSpVCkwOXWcWDHjQWD0IOUvYC MbQC3XQjTjURKsODZfMKGgNWLgMWGdyr2ZEOIuJJUaXcZnCDWjTXXpONNnRQphORUeYBB7WHw6VCSzNI JwUQ7AYkHrUVXoYDTrFMHoJOXyVSWlzx5PHMAdUYCy KFJ5XwKwUBOmZNDrUXusTFUlDUB7QRLeLPEsVFTyUW3ZRsTzXTMeCZMrNxciYOWdIBIjez6ALLGdDSAq TkR8LgQxQSNxFRFxCVanGIBhHRH3Tmc1OFUnEMSsCD4XPkBgHFOqJJJ1LtZqQRFmCCHfuz6UMAHwRCJi PqTsHkEbOISuGZCvVHttNIZxMMW0QrdjFVVfDBFlTD 4ANwUoZSYpUUg6APKgISRdJYEdhm5MLXXuOLFxVCc9VDWtNAKoHJFmWHp0dwGpxIAsHVr0ZJ2CZ1Uqoq AvLsJVWg6Ep278DPYiLRNzQm7YD2qkTb2gQBRxVWILBg6PGOw6AVYbYuv4Cqm4DnPlKmonVzGdZqfyWl MyYmRmNjQzMWQ+SAiuQlVzTfroGjvsCPVkYWJhE9S3 KJZqGcBhCMM2OZNsSD1fQPYEZf2+ONxswWGxpLmoLQSUIbP2DJI1EVduIGNQMf4R ID Date Data Source [id number] 11/03/2019 01:22:00 PM EST [facility] D[facility]I MALLY MAMMOGRAM SCREEN BL W CAD W TOMOSYNTHESISCLINICAL HISTORY: Screening. Last Clinical Breast Exam:11/03/19 Tyrer-Cuzick Model 10-year risk: na% ( Average: na%) Tyrer-Cuzick Model lifetime risk: 1.3% (Average: 3.6%)COMPARISON: 07/31/2018, 07/24/2017, 06/01/2016, 05/04/2015, 11/03/2013, 10/10/2010TECHNIQUE: Craniocaudal and oblique views were obtained digitally. Craniocaudal views were reviewed by CAD. Digital Breast Tomosynthesis was obtained.FINDINGS: There are scattered fibroglandular densities.No dominant mass, suspicious microcalcifications, architectural distortion or skin/nipple thickening or retraction is seen.There are no significant changes compared to the prior study/studies.IMPRESSION: Negative mammogram with Digital Breast Tomosynthesis.A follow up mammogram is recommended in one year as per the [employer].ACR Breast Density: B- Scattered fibroglandular densityCLASSIFICATION: BI-RADS 1 - NEGATIVEResultCode: BR 1 BDISCLAIMER: According to the [employer] and the [employer], any patient with a lifetime risk assessment greater than 20% or patients with dense breasts (heterogeneously or extremely dense), may benefit from additional screening tests for breast cancer. Further screening tests for patients with dense breasts (heterogeneously or extremely dense) should be based upon the patient's breast cancer risk status. All patients, having their mammogram with [facility], with a lifetime risk assessment greater than 20% or with dense breasts, will be given the opportunity to meet with our certified breast health navigator to discuss their risk and further imaging options.Further screening test includes Ultrasound and MR (Magnetic Resonance) imaging.Dictated by: Grace SALCEDO M.D. on 11/03/2019 Transcribed by: amanda on 11/03/2019 02:16 PMcc: Name Value Range Interpretation Code Description Data Damari rce(s) Supporting Document(s) Procedure Social History Code Duration Value Status Description Data Source(s ) Smoking 07/29/2020 12:00:00 AM EDT Patient is a former smoker completed Patient is a former smoker [facility] ([facility], [facility]) Vital Signs ID Date Data Source UNK Name Value Range Interpretation Code Description Data Source(s) Body mass index (BMI) [Ratio] 24.3 kg/m2 24.3 k g/m2 [facility] ([facility] ) Body weight 146.00 [lb_av] 146.00 [lb_av] [facility] ([facility] ) Body height 65 [in_i] 65 [in_i] [facility] ([facility]) 5'5" Body temperature 96.4 [degF] 96.4 [degF] [facility] ([facility] ) Heart rate 65 /min 65 /min [facility] ([facility]) Diastolic blood pressure 68 mm[Hg] 68 mm[Hg] [facility]) Systolic blood pressure 121 mm[Hg] 121 mm[Hg] [facility] ([facility], [facility]) Body mass index (BMI) [Ratio] 24.5 kg/m2 24.5 k g/m2 [facility] ([facility], [facility]) Body height 65 [in_i] 65 [in_i] [facility] ([facility], [facility]) 5'5" Body weight 147.00 [lb_av] 147.00 [lb_av] [facility] ([facility], [facility]) Body temperature 97.6 [degF] 97.6 [degF] [facility] ([facility], [facility]) Oxygen saturation in Arterial blood by Pulse oximetry 96 % 96 % [facility] ([facility], [facility]) Respiratory rate 18 /min 18 /min [facility] ( [facility], [facility]) ID Date Data Source [id number] 07/22/2020 12:58:36 PM [facility] Name Value Range Interpretation Code Description Data Source(s) WEIGHT RECORDED 147 lb 147 lb [facility] Body height Measured 65 in 65 in [facility] Patient Treatment Plan of Care Planned Activity Planned Date Details Description Data Source (s) sodium chloride (preservative free) 0.9 % flush 3 mL 020 08:10:17 AM [facility] 24 HR Isosorbide Mononitrate 30 MG Extended Release Or al Tablet 08/31/2019 12:00:00 AM [facility] ospital Esomeprazole 40 MG Delayed Release Oral Capsule [facility]
[2020-12-24] MEDS ORDERED: AMLO1TAB24 PO (17:00)
[2020-12-24] MEDS ORDERED: HYDR25TAB PO (17:00)
[2020-12-24] MEDS ORDERED: LEVO88TA3 PO (17:00)
[2020-12-24] MEDS ORDERED: PANT40TA29 PO (17:00)
[2020-12-24] MEDS ORDERED: ECOT81TA5 PO (17:00)
[2020-12-24] MEDS ORDERED: EZET10TA21 PO (17:00)
[2020-12-24] MEDS ORDERED: ROSU10TA6 PO (17:00)
[2020-12-24] MEDS ORDERED: RANO500T2 PO (17:00)
[2020-12-24] MEDS ORDERED: NITR0.4S14 SL (17:00)
[2020-12-24] MEDS ORDERED: CITA40TA4 PO (17:00)
[2020-12-24] MEDS ORDERED: ASPIRIN 81 MG CHEW TABLET PO ONE (17:15)
[2020-12-24] MEDS ORDERED: PANTOPRAZOLE 40MG VIAL (C9113 PER 1) IV ONE (17:15)
[2020-12-24] MEDS ORDERED: GI COCKTAIL 50ML BTL(HYOSCYAMINE/MAALOX/LIDOCAINE VISCOUS)(1:3:1) PO ONE (17:15)
[2020-12-24 17:23] LABS: BASO # 0.1 10^3/uL (0.0-0.2); BASO % 1.1 % (0.0-1.0); EOS # 0.1 10^3/uL (0.0-0.5); EOS % 2.1 % (0.0-3.0); HEMATOCRIT 39.8 % (36.0-47.0); HEMOGLOBIN 13.1 g/dl (12.0-15.5); LYMPH # 1.3 10^3/uL (1.5-5.0); LYMPH % 23.1 % (24.0-44.0); MEAN CORPUSCULAR HEMOGLOBIN 29.9 pg (27.0-33.0); MEAN CORPUSCULAR HGB CONC 32.9 g/dl (32.0-36.5); MEAN CORPUSCULAR VOLUME 90.9 fl (80.0-96.0); MONO # 0.4 10^3/uL (0.0-0.8); NEUTROPHILS # 3.8 10^3/uL (1.5-8.5); NEUTROPHILS % 66.5 % (36.0-66.0); PLATELET COUNT, AUTOMATED 255 10^3/uL (150-450); RED BLOOD COUNT 4.38 10^6/uL (4.00-5.40); WHITE BLOOD COUNT 5.7 10^3/uL (4.0-10.0)
--- NOTE | 2020-12-24 17:43 | REP ---
INDICATION: chest pain. COMPARISON: Comparison chest x-ray March 19, 2015 TECHNIQUE: Two views.. FINDINGS: The lungs are well inflated and free of infiltrate. The pleural angles are sharp. The heart size is normal. Pulmonary vasculature is not increased. No significant bony abnormality is seen. Monitoring electrodes are seen. There is a granulomatous calcification again noted in the right base. IMPRESSION: No active disease.. <Electronically signed by Paul Chand > 12/24/20 3208
[2020-12-24 17:44] LABS: ALBUMIN 4.3 GM/DL (3.2-5.2); ALT/SGPT 21 U/L (12-78); BILIRUBIN,DIRECT < 0.1 MG/DL (0.0-0.2); BILIRUBIN,TOTAL 0.4 MG/DL (0.2-1.0); BLOOD UREA NITROGEN 19 MG/DL (7-18); CALCIUM LEVEL 9.7 MG/DL (8.8-10.2); CARBON DIOXIDE LEVEL 31 MEQ/L (21-32); CHLORIDE LEVEL 102 MEQ/L (98-107); CK-MB VALUE MASS 2.4 NG/ML (<3.6); CPK CREATINE PHOSPHOKINASE 141 U/L (26-192); CREATININE FOR GFR 0.96 MG/DL (0.55-1.30); FREE T4 1.39 NG/DL (0.76-1.46); GLUCOSE, FASTING 112 MG/DL (70-100); LIPASE 394 U/L (73-393); POTASSIUM SERUM 4.4 MEQ/L (3.5-5.1); SODIUM LEVEL 141 MEQ/L (136-145); TOTAL PROTEIN 7.1 GM/DL (6.4-8.2); TROPONIN I < 0.02 NG/ML (< 0.10)
--- OUTSIDE RECORDS SUMMARY | 2020-12-24 18:45 | CCD ---
Author Author [facility] Organization [facility] Address Unknown Phone Unavailable Care Team Providers Care Prototype Carpenter Name Role Phone Alexandru PRITCHETT, Sebastien Unavailable [...] Unavailable Kelinusscailin PRITCHETT, Christopher Unavailable Unavailable Alexandru PRITCEHTT, Christopher Unavailable Unavailable Kelinusscailin PRITCHETT, Christopher Unavailable [...] [facility] Unavailable Unavailable ZABOROWSKI, J JESSICA NEWSPAPER MANAGER Unavailable Unavailable ZABOROWSKI, J JESSICA NEWSPAPER MANAGER Unavailable Unavailable ZABOROWSKI, J JESSICA NEWSPAPER MANAGER Unavailable Unavailable ZABOROWSKI, J JESSICA NEWSPAPER MANAGER Unavailable Unavailable ZABOROWSKI, J JESSICA NEWSPAPER MANAGER Unavailable Unavailable ZABOROWSKI, J JESSICA NEWSPAPER MANAGER Unavailable Unavailable ZABOROWSKI, J JESSICA NEWSPAPER MANAGER Unavailable Unavailable ZABOROWSKI, J JESSICA NEWSPAPER MANAGER Unavailable Unavailable ZABOROWSKI, J JESSICA NEWSPAPER MANAGER Unavailable Unavailable ZABOROWSKI, J JESSICA NEWSPAPER MANAGER Unavailable Unavailable ZABOROWSKI, J JESSICA NEWSPAPER MANAGER Unavailable Unavailable ZABOROWSKI, J JESSICA NEWSPAPER MANAGER Unavailable Unavailable ZABOROWSKI, J JESSICA NEWSPAPER MANAGER Unavailable Unavailable ZABOROWSKI, J JESSICA NEWSPAPER MANAGER Unavailable Unavailable ZABOROWSKI, J JESSICA NEWSPAPER MANAGER Unavailable Unavailable ZABOROWSKI, J JESSICA NEWSPAPER MANAGER Unavailable Unavailable ZABOROWSKI, J JESSICA NEWSPAPER MANAGER Unavailable Unavailable ZABOROWSKI, J JESSICA NEWSPAPER MANAGER Unavailable Unavailable ZABOROWSKI, J JESSICA NEWSPAPER MANAGER Unavailable Unavailable ZABOROWSKI, J JESSICA NEWSPAPER MANAGER Unavailable Unavailable ZABOROWSKI, J JESSICA NEWSPAPER MANAGER Unavailable Unavailable ZABOROWSKI, J JESSICA NEWSPAPER MANAGER Unavailable Unavailable ZABOROWSKI, J JESSICA NEWSPAPER MANAGER Unavailable Unavailable ZABOROWSKI, J JESSICA NEWSPAPER MANAGER Unavailable Unavailable ZABOROWSKI, J JESSICA NEWSPAPER MANAGER Unavailable Unavailable ZABOROWSKI, J JESSICA NEWSPAPER MANAGER Unavailable Unavailable ZABOROWSKI, J JESSICA NEWSPAPER MANAGER Unavailable Unavailable ZABOROWSKI, J JESSICA NEWSPAPER MANAGER Unavailable Unavailable ZABOROWSKI, J JESSICA NEWSPAPER MANAGER Unavailable Unavailable ZABOROWSKI, J JESSICA NEWSPAPER MANAGER Unavailable Unavailable ZABOROWSKI, J JESSICA NEWSPAPER MANAGER Unavailable Unavailable ZABOROWSKI, J JESSICA NEWSPAPER MANAGER Unavailable Unavailable ZABOROWSKI, J JESSICA NEWSPAPER MANAGER Unavailable Unavailable ZABOROWSKI, J JESSICA NEWSPAPER MANAGER Unavailable Unavailable ZABOROWSKI, J JESSICA NEWSPAPER MANAGER Unavailable Unavailable ZABOROWSKI, J JESSICA NEWSPAPER MANAGER Unavailable Unavailable ZABOROWSKI, J JESSICA NEWSPAPER MANAGER Unavailable Unavailable ZABOROWSKI, J JESSICA NEWSPAPER MANAGER Unavailable Unavailable ZABOROWSKI, J JESSICA NEWSPAPER MANAGER Unavailable Unavailable ZABOROWSKI, J JESSICA NEWSPAPER MANAGER Unavailable Unavailable ZABOROWSKI, J JESSICA NEWSPAPER MANAGER Unavailable Unavailable ZABOROWSKI, J JESSICA NEWSPAPER MANAGER Unavailable Unavailable ZABOROWSKI, J JESSICA NEWSPAPER MANAGER Unavailable Unavailable ZABOROWSKI, J JESSICA NEWSPAPER MANAGER Unavailable Unavailable KASI RUSS MD Unavailable Unavailable [...] is protected by Article 27-F of the [facility] Public Health law. If you continue you may have access to information: Regarding HIV / AIDS; Provided by facilities licensed or operated by the [facility] Office of Mental Health; or Provided by the [facility] Office for People With Developmental Disabilities. If such information is present, then the following [facility] mandated warning applies: This information has [...] law may result in a fine or penitentiary sentence or both. A general authorization for the release of medical or other information is NOT sufficient authorization for further disc losure. Allergies and Adverse Reactions Type Description Substance Reaction Status Data Source(s ) Drug Class NO KNOWN ALLERGIES NO KNOWN ALLERGIES [facility] No Known Drug Allergies No Known Drug Allergies [facility] Family History Family Member Name Family Member Gender Family Member Status Date o f Status Description Data Source(s) Unknown Unknown Problem [facility] ([facility]) Encounters Encounter Providers Location Date Indications Data Source(s ) Outpatient Referrer: Sebastien Horvath MD 08/25/2020 11: 50:[address] [facility] Outpatient Attender: JESSICA QUINTERO NEWSPAPER MANAGER [id number] 12:17:15 PM EDT - 08/09/2020 12:10:16 PM EDT [facility] OFFICE OUTPATIENT NEW 30 MINUTES Attender: Kitty Jeffers am, MD Physical Therapy 08/05/2020 10:15:00 AM EDT [facility] ([facility]) Outpatient Attender: BRYCE parky 07/29/2020 09:15:00 AM EDT [facility] ([facility] Outpatient Attender: FANG FRAZIER MD [id number] 07/27/2020 12: 00:00 AM EDT Aneurysm of other precerebral arteries [facility] Aneurysm of other precerebral arteries Outpatient Attender: FANG FRAZIER MDAd mitter: FANG FRAZIER MDReferrer: FANG FRAZIER MD [id number] 07/08/2020 09:33:39 AM EDT - 07/08/2020 01:00:00 PM EDT Cerebral aneurysm, nonruptured [facility] Cerebral aneurysm, nonruptured Patient discharged. Outpatient Attender: DEFAULT / GENE CARLITOS / UNKNOWN PROVIDER ALIASES Attender: ANA NEGRONReferrer: FANG FRAZIER MD [id number] 12:00:00 AM EDT - 07/04/2020 12:00:[address] [facility] Outpatient Attender: FANG FRAZIER MD 06/15/2020 12:00:00 AM [facility] Outpatient Attender: FANG FRAZIER MDReferrer: FANG Tang MD 05/20/2020 12:00:00 AM T [facility] Outpatient Referrer: FANG FRAZIER MD 05/18/2020 12:00:00 AM [facility] Outpatient Attender: DEBBIE JORDAN DPGuanako PCConsultant: MERCEDEZ RUSS MD 02/16/2020 04:16:00 PM EDT - 02/16/2020 04:16:00 PM [facility] Outpatient Attender: DEBBIE JORDAN DPGuanako PCConsultant: MERCEDEZ RUSS MD 02/09/2020 02:35:00 PM EDT - 02/09/2020 02:35:00 PM [facility] Outpatient Referrer: Sebastien Horvath MD 11/03/2019 01: 16:[address] [facility] Medications Medication Brand Name Start Date [...] MOUTH ONCE DAILY SOLD: 09/18/2020 [facility] 10 mg 09/13/2020 12:00:00 AM EDT [...] BY MOUTH TWICE A DAY SOLD: 08/19/2020 [facility] 0.4 mg 08/10/2020 12:00:00 AM EDT [...] Sodium 07/29/2020 12:00:00 AM EDT active [facility] ([facility]) 500 mg 07/24/2020 12:00:00 AM EDT [...] Oral completed 650 mg, Oral, O nce, [facility] 07/08/20 at 1200, For 1 dose
Maximum daily dose of acetaminophen is 3,000 mg from all sources in 24 hours.
[facility] Medication administered onsite verapamil (ISOPTIN) in NaCl 0.9 % injection 1 mg/mL (IR use only) 07/08/2020 10:34:22 AM EDT completed Code/Trauma Medication, Starting [facility] 07/08/[address] [place] [address] Medication administered onsite 1 ML heparin sodium, porcine 1000 UNT/ML Injection heparin (porcine) 1000 units/mL injection heparin (porcine) 1000 units/mL injection 07/08/2020 1 0:32:36 AM EDT completed Code/T rauma Medication, Starting [facility] 07/08/[address] [place] [address] Medication administered onsite Nitroglycerin 0.1 MG/ML Injectable Solut ion nitroglycerin injection in D5W 0.1 mg/mL ([facility]) nitroglycerin injection in D5W 0.1 mg/mL ([facility]) 020 10:23:31 AM EDT completed Code/T rauma Medication, Starting [facility] 07/08/[address] [place] [address] Medication administered onsite lidocaine (XYLOCAINE) 2 % injection [id number] 07/08/2020 10:23:12 AM EDT completed Code/Trauma Medicati on, Starting [facility] 07/08/[address] [place] [address] Medication administered onsite 2 ML Midazolam 1 MG/ML Injection midazolam (PF) (VERSE D) injection midazolam (PF) (VERSED) injection 07/08/2020 10:18:00 AM EDT completed Code/Trauma Medication, Starting [facility] 07/08/[address] [place] [address] Medication administered onsite fentaNYL (SUBLIMAZE) (PF) injection [id number] 07/08/2020 10:18:00 AM EDT completed Code/Trauma Medicati on, Starting [facility] 07/08/20 at [facility] [facility] Medication administered onsite Lidocaine 40 MG/ML Topical Cream lidocaine (LMX) 4 % c ream lidocaine (LMX) 4 % cream 07/08/2020 08:15:00 AM EDT Topical completed Topical, Once, [facility] 07/08/20 at 0815, For 1 dose
Apply to right wrist and snuffbox generously with tegaderm
Pre-op [facility] Medication administered onsite sodium chloride (preservative free) 0.9 % flush 3 mL [id number] 07/08/2020 08:10:17 AM EDT 3 mL Intravenous active 3 mL, Intravenous, Every 8 hours, First dose on [facility] 07/08/20 at 0815, For 30 days, Pre-op
Saline Lock. Flush Q8H and after each use to Saline Lock.
[facility] Medication administered onsite Paroxetine Hydrochloride 40 [...] TABLET BY MOUTH TWICE DAILY SOLD: 06/25/2020 [facility] 1,250 mcg (50,000 unit) 02/02/2020 [...] Hour (IMDUR) 08/31/2019 12:00:00 AM EDT aborted [facility] 1,250 mcg (50,000 unit) 07/02/2019 12:00:00 [...] Oral aborted Take 40 mg by mouth. [facility] Insurance Providers Payer name Policy type / Coverage type Policy ID Covered republican ID Covered republican's relationship to martel Policy Martel Plan Information MEDICARE COMPLETE [id number] SP [id number] MEDICARE COMPLETE-[facility] O [id number] S [id number] [facility] MEDICARE [id number] Malena [id number] 20 [facility] MEDICARE COMPLETE G [id number] Self [id number] TODAYS OPTIONS/HAITIAN P [id number] S [id number] TODAYS OPTIONS/HAITIAN P [id number] S [id number] [place] [id number] [id number] MEDICARE [id number] SP [id number] A [employer] MEDICARE-O/P [id number] 18 [id number] MEDICARE COMPLETE [id number] SP [id number] [facility] O [id number] S [id number] UNITED HE[employer]ARE O [id number] S [id number] MEDICARE COMPLETE-[facility] O [id number] S [id number] [facility] MEDICARE [id number] Malena [id number] 20 United HLCR/Medicare Solu Commercial [id number] Self [id number] [facility] Medicare Solutions F [id number] SELF [id number] [facility] Medicare Solutions F [id number] SELF [id number] United HLCR/Medicare Solu Commercial [id number] Self [id number] United HLCR/Medicare Solu Commercial [id number] Self [id number] [facility] [place] [place] [id number] 18 [id number] Problems, Conditions, and Diagnoses Code Display Name Description Problem Type Effective Dates Data Source(s) 146241833 Pure hypercholesterolemia Pure hypercholesterolemia Pr oblem 08/05/2020 12:00:00 AM EDT [facility] ([facility] ) [id number] Essential hypertension Essential hypertension Problem 08/05/2020 12:00:00 AM EDT [facility] ([facility] ) [id number] Essential hypertension Essential hypertension Problem 02/09/2020 12:00:00 AM EDT [facility] ([facility]) 31498072 Hypothyroidism Hypothyroidism Problem 02/09/2020 12:00: 00 AM EDT [facility] ([facility]) [id number] Ingrowing nail Ingrowing nail Problem 02/09/2020 12:00: 00 AM EDT [facility] ([facility]) Corns and callosities Corns and callosities Problem 02/09/2020 12:00:00 AM EDT [facility] ([facility]) Cellulitis of unspecified toe Cellulitis of unspecifie d toe Problem 02/09/2020 12:00:00 AM EDT [facility] ([facility]) [id number] Pain in limb Pain in limb Problem 02/09/2020 12:00:00 A M EDT [facility] ([facility]) [id number] Plantar nerve lesion Plantar nerve lesion Problem 02/09/2020 12:00:00 AM EDT [facility] ([facility]) [id number] Tarsal tunnel syndrome Tarsal tunnel syndrome Problem 02/09/2020 12:00:00 AM EDT [facility] ([facility]) I10 Essential (primary) hypertension Essential (primary) h ypertension Diagnosis 08/09/2020 11:08:01 AM EDT [facility] I25.83 Coronary atherosclerosis due to lipid ri ch plaque Coronary atherosclerosis due to lipid ri Diagnosis 08/09/2020 11:08:01 AM EDT [facility] I25.10 Atherosclerotic heart diseas e of [place] coronary artery without angina pectoris Atherosclerotic heart disease of [place] Diagnosis 08/09/2020 11:08:01 AM EDT [facility] Z4889 Encounter for other specified surgical a ftercare Encounter for other specified surgical aftercare Diagnosis 02/16/2020 04:16:00 PM EDT [facility] L603 Nail dystrophy Nail dystrophy Diagnosis 02/09/2020 02:35: 00 PM EDT [facility] L84 Corns and callosities Corns and callosities Diagnosis 02/09/2020 02:35:00 PM EDT [facility] G5750 Tarsal tunnel syndrome, unspecified lowe r limb Tarsal tunnel syndrome, unspecified lower limb Diagnosis 02/09/2020 02:35:00 PM EDT [facility] [id number] Cellulitis of unspecified toe Cellulitis of unspecifie d toe Diagnosis 02/09/2020 02:35:00 PM EDT [facility] G5761 Lesion of plantar nerve, 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, right lower limb Diagnosis 02/09/2020 02:35:00 PM EDT [facility] N94015 Pain in right foot Pain in right foot Diagnosis 02:35:00 PM EDT [facility] Surgeries/Procedures Procedure Description Date Indications Data Source(s) BASIC METABOLIC PANEL CALCIUM TOTAL BASIC METABOLIC PANEL STAT 07/08/2020 8:19 AM EDT 07/08/2020 08:19:00 AM EDT [facility] BLOOD COUNT COMPLETE AUTOMATED CBC STAT 07/08/2020 8:19 A M EDT 07/08/2020 08:19:00 AM EDT [facility] Excise Nail Bed & Matrix 02/09/2020 12:00:00 AM EDT [facility] ([facility]) Results ID Date Data Source [id number] 08/10/2020 08:18:53 AM [facility]T [facility]FORMATIONPatient MRN Name Date of Age Gend*PT [id number] Josefina Vazquez 1945 75 years F ---PT Location Admission Date/Time Visit ID Attending Provider --- --- --- --- EPI ID CSN Admitting Provider [id number] ---Cardiology Office NoteName: Josefina Vazquez Gender: femaleDate of : 1945 Age: 75 yearsPrimary Care Provider / Referring Physician: GOSIA MCNALLYurrent HistoryChief Complaint: Yearly follow-upHPI:This patient is a 75 years female presents today for follow-up. She has thefollowing medical problem list:1. Known CAD with previous LAD stenting and stable moderate disease in [employer] coronary; plain treadmill stress test done August 15, 2019 at 's office was negative for ischemia2. Tobacco use and abuse but currently abstained3. Hypertension4. Hyperlipidemia5. Basal artery aneurysm of 9 mm treated with web embolization 09/26/2019 [address] [facility]y at [facility] presents today for follow-up. Overall, she tells [...] OVARIES BILATERAL ;Surgeon: Sebastien Horvath MD; Location: [facility]; Service: Gynecology;Laterality: Bilateral; TUBAL LIGATION 1972Family [...] Sexual Activity Alcohol use: Yes Comment: White Belarusian every Sunday. Drug use: No Sexual activity: Not on fileLifestyle Physical activity: Days per week: Not on file Minutes per session: Not on file Stress: Not on fileRelationships Social connections: Talks on phone: Not on file Gets together: Not on file Attends sabianist service: Not on file Active member of [...] parts of this document, were dictated using [employer]. A reasonable attempt at proofreading has been made to minimize errors.Please call with any questions or corrections. Name Value Range Interpretation Code Description Data Damari rce(s) Supporting Document(s) ID Date Data Source [id number] 07/27/2020 12:31:[address] [facility] Name Value Range Interpretation Code Description Data [facility](s) Progress Note [facility] DJFSVc9wJeUDGiCu81/OFKnfOMFed9UfVWiyUJk5DUjpCDAfZ7XhHTP0tZ0lVTL9RZhYIpWaJsMcZSFk [facility] [file] AgICAgICAgICAgICAgICAgICAgICAgICAgICAgICAg ICAgICAgICAgICAgICAgICAgICAgICAgICAgICAgICAgICAgICAgICAgICAgICAgICAgICAgICAgICAN CiAgICAgICAgICAgICAgICAgICAgICAgICAgICAgICAgICAgICAgICAgICAgICAgICAgICAgICAgICAg ICAgICAgICAgICAgICAgICAgICAgICAgICAgICAgIC AgICAgICAgICANCiAgICAgICAgICAgICAgICAgICAgICAgICAgICAgICAgICAgICAgICAgICAgICAgIC AgICAgICAgICAgICAgICAgICAgICAgICAgICAgICAgICAgICAgICAgICAgICAgICAgICANCiAgICAgIC AgICAgICAgICAgICAgICAgICAgICAgICAgICAgICAg ICAgICAgICAgICAgICAgICAgICAgICAgICAgICAgICAgICAgICAgICAgICAgICAgICAgICAgICAgICAg ICANCiAgICAgICAgICAgICAgICAgICAgICAgICAgICAgICAgICAgICAgICAgICAgICAgICAgICAgICAg ICAgICAgICAgICAgICAgICAgICAgICAgICAgICAgIC AgICAgICAgICAgICANCiAgICAgICAgICAgICAgICAgICAgICAgICAgICAgICAgICAgICAgICAgICAgIC AgICAgICAgICAgICAgICAgICAgICAgICAgICAgICAgICAgICAgICAgICAgICAgICAgICAgICANCiAgIC AgICAgICAgICAgICAgICAgICAgICAgICAgICAgICAg ICAgICAgICAgICAgICAgICAgICAgICAgICAgICAgICAgICAgICAgICAgICAgICAgICAgICAgICAgICAg ICAgICANCiAgICAgICAgICAgICAgICAgICAgICAgICAgICAgICAgICAgICAgICAgICAgICAgICAgICAg ICAgICAgICAgICAgICAgICAgICAgICAgICAgICAgIC AgICAgICAgICAgICAgICANCiAgICAgICAgICAgICAgICAgICAgICAgICAgICAgICAgICAgICAgICAgIC AgICAgICAgICAgICAgICAgICAgICAgICAgICAgICAgICAgICAgICAgICAgICAgICAgICAgICAgICANCi AgICAgICAgICAgICAgICAgICAgICAgICAgICAgICAg ICAgICAgICAgICAgICAgICAgICAgICAgICAgICAgICAgICAgICAgICAgICAgICAgICAgICAgICAgICAg ICAgICAgICANCjw/bZHkX9ukqVAgkqY1S1hmTj6QEq8FRO7jr2UlGPJeULpairRuQgiQLqZdGDUbQvlU Tlb2NYvbNP8RgPWmT8CzO2AzHEssGC9YEVOiJAYvbT JtOZZrDSAvZyU1SIKbPQkiZW3VjKUqPVwtPPWlVBTtTlWsBGGoJBPhYTTkXP2ALLAdZ290isIvQs7LDf 2CFsZqBJ2tko7DJuBxGRGvVntBJye4YZwdTL0HiZWfsVKfBbNhATAMJxYiY4xor6RxXwpcZHPJVHavXX 5Ax1HiaOIbKQq+Fl8BXQ6ej9SwBQmlQgRxLJ5lau8K XXvBCpEaF4IfbVveIFOtk4ntOMBjMP6jqFSbUXD6NOW4d8QwBJoxM8L2Q2mrJSOYZNO4PXyaDT2tLRUk QPJlVwT5HCWJAF7DSFYxPJDvrWNbKTPdTWPQDZ4NFRktHFT7UTZmczKjlOMuWCqaIK7YOQKreiAdAkDq MCBSDQo+At4TIL4po6IbLEqtECXlOJ8xdp2OZEjJSq JzZ1U2oHXmY1P5DMpuUn8TFMMwGEOqNiClJHQEWMyyWU3BLK2bqeO9MX7ZfILqZCRzXKBqmFPeTRq7X0 1btQNcNNwcGY3WDUH+Pb+Zb7SWAFaGGWpSZJoBiPvKOINQbMvO0DlZ1NFm9LmB7CySW11oNawheJeVG evQJ5IBL7dUXJpJEIFVM0LlITtpZ7npnFgBjDuDUDG LcNwG35isWCjVKLlMGJ9IANrKv1DWIKaS5BfolWngTcjcuYwQUPuGSQWIA7EUPsgojSlwIApdAkjIO89 nLoaRU9ICj9YBoPnMR3xvt3XjCNdOf9XGDLdYW2HBJCfLXBgRNEzNPX2AVBjNvHgORjhIMSiIXZkGSP8 WLSoUEIrCF6AQhIcVXQrSiS1BqeiRWNmPJRmee3CXH PaWNEzTeE9GtWoZZYuFLHdLCnmRATzAPGpQFP1LEHlYGZrCW8MBqBkYBWgCAAyUpMrXKJwRDBjnj8XXU CaJSTkTTWrUsTdTLPeZBDgVAcaIPOzQDM7ZRBxTWXoZDHdJL3VZvHyNDIsDJftZGTeWQLuHRWlmf6TMG DlBZFkWMS3KrXaOSAsPBMgUKpkLOAjXHO2MsfeVNUc SWRrFN7WLrUsVBXbIIljTfTcBPYoIUYbad8FSOIuLDUrMHXrEVXbFLOwXLBjEStzLNZgMYC0IqJnINGj BSUdDJ6SFzSeRSCsGWJ5JePjKWKoTBZubq8RMDDaBWVcVIz2PyOwPBBbLFHeWClvPTUeCIXuFSJaFIIk FVCfKV8CWdAvRJZfGtR7TJBzDKUqGFCbso6AVFEjFJ LbFgntQIXbQVFdXWGdYHasLEPqKZIaFHV9DXYcQVSrIA1KZvZnRSApTiJhNdZtTOGqIHHkpt2CPZObIV NzSaLsCUUsSKHnMUZpKBwuLSKvQPB5IpN0RDMqBUOjHU4OPkYsEFUcHsV4JNWoYJFvNGIuvl5WSCXxAA HuWEhwRbFbXPUwYDMsUWnwIPLfESC1GDWzJRUkNOJb XT4EQyStBZNoNlT2ZERyZFIeMQQoof9YWXKeUAOfDjH2GWEiARVqSVNoTOutIXVsZUG5NKNsPRUsNWOo JL6SRjIeUCryAMXDNxc2BIkyA1x8TMNgBF1AF0Tdn1JnRgqfIIRDWKjxHW4rfsAxQCYtZv6TQ5uMIvxd YXK0GXNvJDF0N1MmDUI1Xqa2WzU3MxB5XHogXmE6Aq 0hJUY7NnC1SPPeBTI0OFV1VPIsKKu6GQAeQpYoZ6MkQNSqQqAtGW2KZw9VOqC1TUG2wXAfDl8YHubeNW FILzWdNH6MQKv= ID Date Data Source [id number] 07/22/2020 12:58:[address] [facility] IR ARTERIOGRAM CEREBRALFINAL RESULTInter preted by:Fang Frazier, [...] Right radial artery angiogram5. Supervision and interpretationSurgeon: Fang Frazier M.D.Site Controller: Swapna Hernandez M.D.Anesthesia: Moderate conscious sedation monitored [...] in standard sterile fashion, and we underwent [facility] standard timeout for patient and site verification [...] technique under direct ultrasound visualization. A 5 English radial glide sheath was placed using Seldinger [...] administered for thromboembolic prophylaxis. Subsequently, a 5 English angled glide catheter was advanced through the [...] rce(s) Supporting Document(s) ID Date Data Source [id number] 07/08/2020 12:56:33 PM [facility] Name Value Range Interpretation Code Description Data Damari rce(s) Supporting Document(s) Progress Note [facility] PXYTWd0wAmUYCnHv36/LGSsgHNYfv0IzEOyoIUg3NZgiRJHaI4ZaIVB9yR0iWZP8QOjVZdNzYvPyNLZr lbm [file] ICAgICAgICAgICAgICAgICAgICAgICAgICAgICAgICAgICAgICAgICAgICAgICAgICAgICAgICAgICAg ECLcXGMtMTKmKWKsGPFhOTXoXG2TDZQmNKZeWNHbIP AgICAgICAgICAgICAgICAgICAgICAgICAgICAgICAgICAgICAgICAgICAgICAgICAgICAgICAgICAgIC BoJLPiABNrTWYlCSRiYCTpRXRyHNSjURMkQWZeEZ4EDEOvGTMfTRRxCORmLZLgQSSpLTDjDBVdFADiDH AgICAgICAgICAgICAgICAgICAgICAgICAgICAgICAg EGSxSHPaONScABCqDGWkTJKzHSLfMOZdYSUpHEXmSNNcRZErMACqBI7DVJFjYALuMFOsYIPuJPVgXQQr ICAgICAgICAgICAgICAgICAgICAgICAgICAgICAgICAgICAgICAgICAgICAgICAgICAgICAgICAgICAg FCLiLOPoHQZuAPNjCZQdWNZjFXFdUY8AJJWyDHYdLV AgICAgICAgICAgICAgICAgICAgICAgICAgICAgICAgICAgICAgICAgICAgICAgICAgICAgICAgICAgIC ChKMXxKZQrRVViZECkXWIcCAHzHLExSDLgAFBvVZNvMG5NLVPbCLYnICYeOAQtOCEwOSOvWNWxJXRoCC AgICAgICAgICAgICAgICAgICAgICAgICAgICAgICAg SHSnCLDnUCOyIOFwDSUvGSXiDVObSPQhXEGgKJZmFKNsTUNvDEMbUSWyEY5RVMWpNQRzRENwXDCjGEYt ICAgICAgICAgICAgICAgICAgICAgICAgICAgICAgICAgICAgICAgICAgICAgICAgICAgICAgICAgICAg GPNaFKVpISNsPTKkYEAlMCKvVHBpWYGkKB5ZIGQqKG AgICAgICAgICAgICAgICAgICAgICAgICAgICAgICAgICAgICAgICAgICAgICAgICAgICAgICAgICAgIC MzRARuCKRzUXVhMHZeEFQyLSDlLSSsEDFpCKJfGYIpEBNiXG2TJDFcNEMaJILiBDXaTCEeXUUgYIPxKX AgICAgICAgICAgICAgICAgICAgICAgICAgICAgICAg YGWaEJKiIRJfZKGsCFWeWNLpHKSdRBKePDCnOKIbKWTjQBLoKKHuVZGyEJCsLQ7FCKIyHRNcZYHrJXIo ICAgICAgICAgICAgICAgICAgICAgICAgICAgICAgICAgICAgICAgICAgICAgICAgICAgICAgICAgICAg ZVUjHINaHXXwTOZmJZZpIEYeWQYbYMNmTPDcUL3LNR 38lLEar2C5YONpYG4cjmy/Rj2BKTxuojBubLTuHN8IBuAlVN9gmc9PQdYpVC6xzz2DULgSWsQlP9C4qQ IlNVCoNNUMFtNpW09xRNedEy21JGuvROZvAfKzCYi2It7GVcZlB8bwZZHzNvC0OQXqZuYvOAiyFZ5Ko3 VudCAxDQo+Yp4SLS2pa4VsTGhzXVQpDD0xyb4HMOdK SlXjI5VqnjO8DFI4ULDeZc4PMHOiZXUcfDHcNBEoUGHTNcPjR0JpfC67TMCQPa3+DQplbmRvYmoNCjE1 IWWam1VzOKv7IW7FTRSkGEe0jKUyWHQwI4Tic9YlJs20LLZzFjugCIbsEKZcPsXEEQKvw9DbXqijKx7y YGIjVK4eEr4eIBNoMHXzJpG7THTRXE5TKELbGNJquE GcVDLbPESOVN7RGTglEKW7SQPniuNetTPeCYpvFQ2VQCYnjwWvTDDkHDDFACh+Kx9NWH9ii8NtKVcgOv OkHC3khs9YDXaSJtLgE5V6lGOoE1V5EErqCm7FUQTbWZNqPZUvQNYTAFnrCD6EYR7royU9DW2OuKJhDI WaGQCimPZzSIo4C44mvXKsFSxhVQ1INPP+Pb+Pg0K AUHrQVKwVNKpXoHhHFIWQlWfO8RoY4HQl1EfE0PjAV20tHfvgxNjGDnbHB7RRG3vEXQoFTTSIF2NnAVt lE4gzuLvTNQuWTHCEuThI39clRHwECBuGBHqQKSzLt5YTGYmZ0PxgfEmtAhupcGoLPZqGRBDWL9RGZzp jeAlmNXubMxjBC35mPrmZV8FGw7EJmZnWK6btl6AiS LwHm3TOSStLi9AQPTsKCSnSEPwZRS6BONmTsKyLTlnKPXyTPKdLAJ7YOZxAHLxCY9YQmFsOZTtZTE5Ca FjGIXtLCQpzh6EYCKvKBVaKcN6ADVmPBFuIWPgULvxXVGeQGPyJMN9QWPyCREpMR4ZHzGwCXNfANP5Ak FsSMVvCWMjuc9ZBRQkDMCwOdSlFQZbGGImBTXnKYrz MWFeHLEiXMq4KKGdIXBuXR5SYeAkWGLfESSwICJvRUSuCIYauo1ZEFMxWHRfAgO8UUXlSBVgQQVgKLiz URSuLUG8XXEvMIWfXREeWO8WBsYbTYRpXDW1LdAhMDPdOOQfvy3FMLDiXBYxPKwdXRIoOMEgOSMgKQlv WWGbUON3YuP0EXMoYTFuZL9VPsOeJLWoLFP8UKCzKS PfQPIloq9WBWUpQKXuCbxjRAWpRFTbQGNuMCcwYYJrGRT4YZr9BNQhGAWrEU2TVjUiFAzpYPUEQdr2EY drO1c5HYSoVn3VW3Rrh6IsSNMxCYFGJBdyPO2ceqYrYZWfYc1YX8vDAkt4J5JpXgOmIVBbVfXkLrtrEz TpMtJ0DxBpRRTsPSE7KA4nBWnmAiZ4AQN3LHYkOJR0 YlQpEPFvPGAyDEYrVCWySFd3OvHcTM3DUv0TVnI5ZPZ0nADrOk7VUpRoGA4OXWJHD5VAEg== ID Date Data Source [id number] 07/08/2020 09:53:[address] [facility] Name Value Range Interpretation Code Description Data Damari e(s) Supporting Document(s) History and Physical [facility] OCVUGx7wKbHMEyPj50/FTYaaADGzr6OoXCngRKs6GQgdBJUkN3HvITF9aN8kSUS2LAsZPfGcMlBrFEEm lbm HgGyvSKaQaOXPnFqvJUlNqTWueNdhdoXWeCT7SiLY7YULkP68fAZSmLKOrV8GqHLD4AlH+Na4OPASkqJ KxLW8HHrlF7G9wd5q4Kl1+M/trARZjfkNQ1rRCM5/CsUztFcvDEU9eZim86JuWyyB5ejiFpvzqk9yopd jHGY0LN8JCpYlfwx4TNDR6P+f8NmQGpS64YlUE77Ze Ufy3+GYItnq4BT/7z3jIA0MixDtvBUc8SC8CAxuT6w+V++lOumZe55ZqdeknsNd9foXYlOSlmxXsUY8S JLObJHsqXg+ze/AphHns6xnrQJ9NYSN0+/QzPnaQyYmPf53iau5onZmgY2BjNqaJt21PRKY7GrOPbHqE Ef28TfRqA0l70dHwxVGaceXum1ywD/nKRznSnVzYsk Nk3mZnu8C9Hgf65AYZQ+GSV8ErlOlieS8OxdKLGb4lc4B4U4gVQMxRkwoCp9tLGy9YJRROdKsdhQoWQN /0qPwwVNoLq3aSvWW3MJdXoZgszCMrIkPmw8Lucnq9iC3O0fWbbAUyGocGmu1s5kXYJKBXN7jq4EHG1f yzNxkNWk/Y81Lg6CTbRpZnI7JJ/y+W76RsNU4mB [file] bMuzzOu+jr48PrdJ1qmU2OHqohPmiiv1LNyqS7agFr6vtppVCQA3ytAJzJPVsQI/lpmMfuE9cZth/CLOCK REPAIRER [file] 9UTpSkXGNUMoApBP0ECQn= ID Date Data Source [id number] 07/08/2020 08:45:03 AM [facility] Name Value Range Interpretation Code Description Data Damari rce(s) Supporting Document(s) Leukocytes [#/volume] in Blood by Automated count 5.4 10*3/uL 4-10 [facility] Erythrocytes [#/volume] in Blood by Automated count 4.08 10*6/uL 4.1- 5.3 L [facility] Hemoglobin [Mass/volume] in Blood 12.7 g/dL 11.5-15.5 [facility] Hematocrit [Volume Fraction] of Blood by Automated count 37.1 % 3 6-45 [facility] Erythrocyte mean corpuscular volume [Entitic volume] by Auto mated count 91.0 fL 80-96 [facility] Erythrocyte mean corpuscular hemoglobin [Entitic mass] by Automated count 31.0 pg 27-33 [facility] Erythrocyte mean corpuscular hemoglobin concentration [Mass/volume] by Automated count 34.1 g/dL 32.0-[facility] width [Ratio] by Automated count 13.1 % 11.5-14.5 [facility] Platelets [#/volume] in Blood by Automated count 230 10*3/uL 150-400 [facility] ID Date Data Source [id number] 07/08/2020 09:07:49 AM [facility] Name Value Range Interpretation Code Description Data Damari rce(s) Supporting Document(s) Bicarbonate [Moles/volume] in Serum 29 mmol/L 22-29 [facility] Chloride [Moles/volume] in Serum or Plasma 101 mmol/L 98-107 [facility] Creatinine [Mass/volume] in Serum or Plasma 0.78 mg/dL 0.50-0.90 [facility] Glucose [Mass/volume] in Serum or Plasma 106 mg/dL 70-140 [facility] Potassium [Moles/volume] in Serum or Plasma 3.8 mmol/L 3.4-5.1 [facility] Sodium [Moles/volume] in Serum or Plasma 140 mmol/L 136-145 [facility] Urea nitrogen [Mass/volume] in Serum or Plasma 13 mg/dL 8-23 [facility] Anion gap 3 in Serum or Plasma 10 mmol/L 8-15 [facility] Osmolality of Serum or Plasma by calculation 291 mosm/kg 275-300 [facility] Creatinine/Urea nitrogen [Mass Ratio] in Serum or Plasma 17 [facility] Calcium [Mass/volume] in Serum or Plasma 9.3 mg/dL 8.8-10.2 [facility] Glomerular filtration rate/1.73 sq M pre dicted among non-blacks [Volume Rate/Area] in Serum or Plasma by Creatinine-based formula (MDRD) 79 mL/min/1.73m2 >60 [facility] Glomerular filtration rate/1.73 sq M pre dicted among blacks [Volume Rate/Area] in Serum or Plasma by Creatinine-based formula (MDRD) >60 [facility] ID Date Data Source [id number] 07/04/2020 07:34:12 AM [facility] Service nt XXX-Imp : NoneMicroorganism XXX Cult : 2019 nCoV Real-Time RT-PCR: NOT DETECTEDTest performed using the [employer] COVID-19 MDx Assay. This test is only for use under the Food and Drug Administration's Emergency Use Authorization.Additional information is available on the following FDA websites for health care providers and patients. https://www.fda.gov/media/322361/download , https://www .fda.gov/media/119372/download Name Value Range Interpretation Code Description Data Damari rce(s) Supporting Document(s) ID Date Data Source [id number] 07/03/2020 11:19:00 AM [facility] Cmnt XXX-Imp : NoneMicroorganism XXX Cult : 2019 nCoV Real-Time RT-PCR: NOT DETECTEDTest performed using the [employer] COVID-19 MDx Assay. This test is only for use under the Food and Drug Administration's Emergency Use Authorization.Additional information is available on the following FDA websites for health care providers and patients. https://www.fda.gov/media/599497/download , https://www .[employer].gov/[place]leaf/584436/download Name Value Range Interpretation Code Description Data Damari rce(s) Supporting Document(s) Microorganism identified in Unspecified specimen by [facility] This lab was ordered by [facility] and reported by [facility]. ID Date Data Source [id number] 07/03/2020 11:18:[address] [facility] Name Value Range Interpretation Code Description Data Damari rce(s) Supporting Document(s) Progress Note [facility] ZIWXKg2tOyJMLwMy88/JLFfgEYFur7QpXUyuHEb3GSaoTBRjT0FrTBH0aX7uIMK9WLfHBcCiYiQkXDG7 lbm DmBffOMlXxFXPyCcnZGnSuGMcsMjeorKWsTE3LvVA6DYPgZ40bVPWpXQCzF1NtKIR9DSY+Ny8MAMHkhO RxLT7PKobOrDhnp8y1ZD9+YP+CMGPyMpLPxkHmHgxIEj0aOhZON+hFQKao1MpjRtZwIB1Msz6Rodnti6 dxSIl6PR589r6xuMe8hZRq4tcgjVMStPWAxciyNXiU aIZ+/gmNwezxM0u+OoPAAxQrLIsHzFdGnj/hEuVnUgcTcmb1J3PKOkCkZmwIjbIReK3SxWBEazWbEX9x m4PzQR+xgCoq+J9qxsi8H6MnoYP3L4PXowOeVBwImBBqCyXwGqu+NDMUnILw1UgqsBA7xRVIkGBReB+k 0TIJx7EHdkSgnx3P1P1uv+WwbzXN2sts6IbJtrO8Bc mS0NrL10uQc/iBw5djteJ5Y0lV+PF+Sbl20yxispJq4bWtL7mRXl2MsjBEkBFQi1AWRAzQA2gkmjRiuH FUENTES/N7wW9iJeK2cuT/2I1S7wMT9rXewi1fi+95vLUdFMKX02x5uYMh5WVVeL52Ery/lrpuxm94rQcGWoJ [file] AgICAgICAgICAgICAgICAgICAgICAgICAgICAgICAg BBEeJNIyTBPzTECcROIlWVDyKCWaVQTeHFBwWYAcSAJjLBCaGL4GOCNsOHRmILWpZWOwFSSjSQUcBYQa ICAgICAgICAgICAgICAgICAgICAgICAgICAgICAgICAgICAgICAgICAgICAgICAgICAgICAgICAgICAg LPPcFUImBMFhBXXrPEUqLBErFT8RUTIaWNFrKNSwLA AgICAgICAgICAgICAgICAgICAgICAgICAgICAgICAgICAgICAgICAgICAgICAgICAgICAgICAgICAgIC GuQYKdDJBsQBJvUQIeBZLcXRSxPTCxPHOkOSOkXH4CHJWaBNOnEEOkPSAzPHLcLXCaQGRcEMSrZNAjVL AgICAgICAgICAgICAgICAgICAgICAgICAgICAgICAg ETPnVWIoXYRiRALxSWZjPCMkKTEsSLLlAQRyMTNaPEUxVSBoHBSiEV2HGWPyPLSnWKJyCKMbKPJuTUOn ICAgICAgICAgICAgICAgICAgICAgICAgICAgICAgICAgICAgICAgICAgICAgICAgICAgICAgICAgICAg WLFdWFEuJLMoVJDtVTFqSNTeMZCnBV8PJXLiUFRoQI AgICAgICAgICAgICAgICAgICAgICAgICAgICAgICAgICAgICAgICAgICAgICAgICAgICAgICAgICAgIC GjINKjMOKoBBYvMMAdJWKtEZSpXFYsPLJpVOFhPKNjKX6EEQSlBTIgWYJeTCXxENLnOLSqZFKcVQEhDW AgICAgICAgICAgICAgICAgICAgICAgICAgICAgICAg ANYtAVWtCRItKPBaLVNnWUVqUOUyOZWwWXTeBLVpCXZfPDPeXIDjDZOxWT1VHTGuHLXuREMwUDLcMREd ICAgICAgICAgICAgICAgICAgICAgICAgICAgICAgICAgICAgICAgICAgICAgICAgICAgICAgICAgICAg UXItTYPjMNEkXBLoCVKmFQBxKFXuSVZtNC3HOALtTK AgICAgICAgICAgICAgICAgICAgICAgICAgICAgICAgICAgICAgICAgICAgICAgICAgICAgICAgICAgIC ZqYEErVSPxVWDcZMBrTLFjWUCmJUArXOSkARZlOKIoZWYrOA7HXZOcNTJvCNYeDISuJYPfUVSwZDSaDK AgICAgICAgICAgICAgICAgICAgICAgICAgICAgICAg ETKtIIHmQZGvHQSjSZBuFETlGMLgTRRcCPHxZFHfJRFpKZNsOEApCSGkGZZfCM1BTO47fXIvm8U7WIMu TR6gwtg/Fw0JCMfvkgCedKSaPA0JZmZzSL2lyx6GOzKoHX1dfo9DUKtUVvLzL8Z8nWSgDNDxDCSRMjSg A39zPZoeQo63AJvpFHKwQwBlFGq8Yd9WRbXtI5mtJU YmLlO9EREdZcLbGOmhWV0Di6CkqHIuYFk+Au4AXC8xt0AwGKczUTTsBD3jni3DSLlNAjByT4VzrsI5JS OqHZJxZg8MPTVjLOQwdXOiZOTaRIURNrPkP9VebC21RZCHBi8+CUesbhXpQzcITiQuKEGby0UcNKo2SW 6XEWFnWTn8wNOnRVQdY6Npi1EuTt58OYSzGvqoA2Jg XH6tSAUKmVVmQGOkUHGIBFD1XAmhNE1mOSNmKMZwGaYxTWPONG0CMSKiMHBcoNDwXWIbIPFOPD2VAIat GOW4WZZpfmOdjQMdQHnsHJ9FBSZsaxToZLkuSWAHYJa+Kl8FNU2sk8StPVyiLNAgNC1zsm4TQXqGAiCr X7F6eJYuF4U8MHjyVp9OSAOlVDBkJEaqKQCDIOugWP 9EYW6qrhR7WZ8MlHXtEBOrTLFttQGkIUb9M14wnORwNVgcZE5GDKN+Pb+Wm0YMRTzVWHyFLUwVgVpCK FZMjPcX8FmD9BQw4VtF3NrHB44uXcmcrUxFTzlUW6ROL3qQMKxJXJOFX5TjAUbqF0ulsHtQLLtXODQKk WgX91twAOuFDXaWJS6IHMmAi9BUYIeT4ZsvtLtcDpz mwJpZHGrVPLTMR3LVDwjmgYgpREfgMjuYS48jRtoZO7JBi8IPzFpTN5upc9JrYWcRf6DZXHzDk6STHZd LMRuEUKoHFA5QIJqKbTaDUelZMZpJMOgFJR1HMZkSWVcIK8WQqQhMVMeRGK1CJWdRNRmCHVbor5UKVWv MGPsJYA9OiPbSLXaISUxLXyhLSMjORUmJLV1RUZmXD RaAD1BEmUjUJUnCZH9WXPcJJVqGTVcnh5MGBHjPDYaEBx7CSDlXYPrIVNwMZzrMYJnWPJkVDF3GSJmJS JiGP4ZXcQxTBVbDVJzNAOaGRNbUWEzpx7DWBOtGQMrZmYjBXLpQWLrOXUuAAwmWZXrQXR8HJt4BBLcSO CbVW5QErRwQFQyWYIkFNAuFOOoEOWvmp5KVGKlQPQt PGQ0ErHkMOSeIIBjZYrgOAXlXCU8DXOgXPOtNJXpLM6XDaNpJLFqFZZhEawhGLQuWMJinl0ZAGNtCRKq CpD5ZfSgKUKzFQWwHOkpQTOkHWD2Ygo8ONHoIDOuIR7HTeWtPFXuZTE4MyFkGRLbXRSefd3UGEPsBRIv DtUoGrMiOULlVODeXFyqKFToZKJ9QhltFFRtPMRxQF 9ZYwWpZNYpKCj1ZSRbNOXpEINejw4LTBDcBUHdTDi3MEIeONTyUCKkIEr7mwHwqZGpQTh2ON4NP4Stoj SuGmOJBn0Js137ZHEuETOgIm1AL5odEi3oEJBeJIEUOc7JYVp9YEOzKhs4Srz5LyLqUywbAzLkQplkTy MyYmRmNjQzMWQ+KWrmNrSuVdcxVeeqLMCyOXSnX0A9 TATuLhJsUAI2UWSbWS1mYUEABm0+YXdfjIDnyZdgKDMMOcT5KRI6MYctOQACMt8J ID Date Data Source [id number] 11/03/2019 01:22:00 PM EST [facility] Associates[facility]: DIGI MALLY MAMMOGRAM SCREEN BL [...] recommended in one year as per the [place] [employer].ACR Breast Density: B- Scattered fibroglandular densityCLASSIFICATION: BI-RADS 1 - NEGATIVEResultCode: BR 1 BDISCLAIMER: According to the [place] [employer] and the [place] [employer], any patient with a lifetime risk assessment greater than 20% or patients with dense breasts (heterogeneously or extremely dense), may benefit from additional screening tests for breast cancer. Further screening tests for patients with dense breasts (heterogeneously or extremely dense) should be based upon the patient's breast cancer risk status. All patients, having their mammogram with [facility], with a lifetime risk assessment greater than [...] smoker completed Patient is a former smoker [facility] ([facility], [facility]) Vital Signs ID Date Data Source UNK Name Value Range Interpretation Code Description Data Source(s) Body mass index (BMI) [Ratio] 24.3 kg/m2 24.3 k g/m2 [facility] ([facility] ) Body weight 146.00 [lb_av] 146.00 [lb_av] [facility] T ([facility] ) Body height 65 [in_i] 65 [in_i] [facility] ([facility]) 5'5" Body temperature 96.4 [degF] 96.4 [degF] [facility] ([facility] ) Heart rate 65 /min 65 /min [facility] ([facility]) Diastolic blood pressure 68 mm[Hg] 68 mm[Hg[facility] Systolic blood pressure 121 mm[Hg] 121 mm[Hg] [facility] Body mass index (BMI) [Ratio] 24.5 kg/m2 24.5 k g/m2 [facility] ([facility], [facility]) Body height 65 [in_i] 65 [in_i] [facility] ([facility], [facility]) 5'5" Body weight 147.00 [lb_av] 147.00 [lb_av] [facility] T ([facility], [facility]) Body temperature 97.6 [degF] 97.6 [degF] [facility] ([facility], [facility]) Oxygen saturation in Arterial blood by Pulse oximetry 96 % 96 % [facility] ([facility], [facility]) Respiratory rate 18 /min 18 /min [facility] ( [facility], [facility]) ID Date Data Source [id number] 07/22/2020 12:58:36 PM [facility] Name Value Range Interpretation Code Description Data Source(s) WEIGHT RECORDED [address] [facility] Body height Measured 65 in 65 in [facility] Patient Treatment Plan of Care Planned Activity Planned Date Details Description Data Source (s) sodium chloride (preservative free) 0.9 % flush 3 mL 020 08:10:17 AM [facility] 24 HR Isosorbide Mononitrate 30 MG Extended Release Or al Tablet 08/31/2019 12:00:00 AM [facility] ospital Esomeprazole 40 MG Delayed Release Oral Capsule [facility]
[2020-12-24 19:48] LABS: INR 0.95; PARTIAL THROMBOPLASTIN TIME 25.9 SECONDS (24.2-38.5); PROTHROMBIN TIME 12.9 SECONDS (12.5-14.3)
[2020-12-24 23:17] LABS: CK-MB VALUE MASS 1.5 NG/ML (<3.6); CPK CREATINE PHOSPHOKINASE 95 U/L (26-192); MB/CK RELATIVE INDEX 1.58 (< OR =4); TROPONIN I < 0.02 NG/ML (< 0.10)
[2020-12-24 23:45] VITALS: BP 142/64
--- NOTE | 2020-12-25 09:29 | ECGEPIP ---
[facility] - ED Test Date: 2020-12-24 Pat Name: JARETH VAZQUEZ Department: Room: - Gender: Female Marking Clerk: WILDER : 1945 Requested By: Daniel Gabriel Order Number: [id number] Reading MD: Laura Parker Measurements Intervals [place] Rate: 58 P: 64 NE: 166 QRS: 59 QRSD: 99 T: 77 QT: 459 QTc: 452 Interpretive Statements SINUS BRADYCARDIA LOW QRS VOLTAGE IN PRECORDIAL LEADS NSTTW abnormalities SIMILAR 03/19/15 Electronically Signed on 12-25-2020 9:29:22 EST by Laura Parker
--- NOTE | 2020-12-25 09:35 | ECGEPIP ---
[facility] - ED Test Date: 2020-12-24 Pat Name: JARETH VAZQUEZ Department: Room: - Gender: Female Human Resources Consultant: lisa : 1945 Requested By: RAJANI Irizarry Order Number: [id number] Reading MD: Laura Parker Measurements Intervals [place] Rate: 61 P: 66 SD: 177 QRS: 0 QRSD: 95 T: 8 QT: 424 QTc: 428 Interpretive Statements SINUS RHYTHM LOW QRS VOLTAGE POSSIBLE INFERIOR MYOCARDIAL INFARCTION, PROBABLY OLD NSTTW abnormalities Electronically Signed on 12-25-2020 9:34:38 EST by Laura Parker
== END 2020-12-24 23:54 | disposition home or self-care (01) ==
LOC: M ED 16:37
DX: R07.9 Chest pain, unspecified (principal); R06.02 Shortness of breath; I10 Essential (primary) hypertension; E78.5 Hyperlipidemia, unspecified; I25.2 Old myocardial infarction; Z79.899 Other long term (current) drug therapy; Z79.82 Long term (current) use of aspirin
CPT/HCPCS: 71046; 80048; 80076; 82550; 82553; 83690; 84439; 84443; 84484; 85025; 85610; 85730; 93005; 93041; 94760; 96374; 99285; C9113

== ENCOUNTER → 2021-06-29 | Outpatient (CLI) | payer MEDICARE ==
[~2021-06-29] MED LIST: AMLO1TAB24 PO; CITA40TA4 PO; ECOT81TA5 PO; EZET10TA21 PO; HYDR-3490 PO; LEVO88TA3 PO; NITR0.4S14 SL; PANT40TA29 PO; RANO500T2 PO; ROSU10TA6 PO
--- NOTE | 2021-06-29 18:54 | REPVR ---
PROCEDURE INFORMATION: Exam: MRA Head Without Contrast; Arteriography Exam date and time: 06/29/2021 3:04 PM Age: 76 years old Clinical indication: Condition or disease; Aneurysm, cerebral; Prior surgery; Surgery date: 6+ months; Surgery type: Aneurysm repair; Additional info: Basilar artery aneurysm TECHNIQUE: Imaging protocol: Magnetic resonance angiography head without contrast. Exam focused on the arteries. COMPARISON: CR SPINE CERVICAL COMPLETE 11/02/2020 11:39 AM FINDINGS: ANTERIOR CIRCULATION: Right internal carotid artery: Intracranial segment is patent with no significant stenosis. No aneurysm. Right middle cerebral artery: No occlusion or significant stenosis. No aneurysm. Right anterior cerebral artery: No occlusion or significant stenosis. No aneurysm. Left internal carotid artery: Intracranial segment is patent with no significant stenosis. No aneurysm. Left middle cerebral artery: No occlusion or significant stenosis. No aneurysm. Left anterior cerebral artery: No occlusion or significant stenosis. No aneurysm. POSTERIOR CIRCULATION: Right vertebral artery: No occlusion or significant stenosis. No aneurysm. Left vertebral artery: No occlusion or significant stenosis. No aneurysm. Basilar artery: Partial flow related enhancement filling into the neck of the previously coiled basilar tip aneurysm. Basilar artery is patent. Right posterior cerebral artery: No occlusion or significant stenosis. No aneurysm. Left posterior cerebral artery: No occlusion or significant stenosis. No aneurysm. 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 Recommend neurosurgery consultation. Electronically signed by: Giancarlo Reaves On 06/29/2021 18:53:35 PM
== END ==
LOC: M RAD 13:47
PROVIDERS: ATTEND Neurological Surgery
DX: I72.5 Aneurysm of other precerebral arteries (principal)

== ENCOUNTER → 2021-11-07 | Outpatient (CLI) | payer MEDICARE ==
[~2021-11-07] MED LIST changes: -CITA40TA4 PO; +CITA40TA7 PO
[2021-11-07 14:43] LABS: HEMOGLOBIN 12.6 g/dl (12.0-15.5); MEAN CORPUSCULAR HEMOGLOBIN 29.9 pg (27.0-33.0); MEAN CORPUSCULAR HGB CONC 32.3 g/dl (32.0-36.5); MEAN CORPUSCULAR VOLUME 92.6 fl (80.0-96.0); PLATELET COUNT, AUTOMATED 243 10^3/uL (150-450); RED BLOOD COUNT 4.21 10^6/uL (4.00-5.40); WHITE BLOOD COUNT 4.6 10^3/uL (4.0-10.0)
[2021-11-07 19:18] LABS: ALBUMIN 3.7 GM/DL (3.2-5.2); BILIRUBIN,TOTAL 0.5 MG/DL (0.2-1.0); CALCIUM LEVEL 9.4 MG/DL (8.8-10.2); CHOLESTEROL RISK RATIO 2.01 (<5); CREATININE FOR GFR 1.03 MG/DL (0.55-1.30); GLOMERULAR FILTRATION RATE 55.2 (>39); POTASSIUM SERUM 4.1 MEQ/L (3.5-5.1); TOTAL 25(OH) VITAMIN D 29.2 NG/ML (30.0-100.0); TOTAL PROTEIN 6.9 GM/DL (6.4-8.2)
== END ==
LOC: M PLALAB 09:44
PROVIDERS: ATTEND Nurse Practitioner Family
DX: I10 Essential (primary) hypertension (principal); E78.5 Hyperlipidemia, unspecified; E55.9 Vitamin D deficiency, unspecified

== ENCOUNTER → 2022-04-03 | Outpatient (CLI) | payer MEDICARE ==
[2022-04-03 14:24] LABS: HEMATOCRIT 37.8 % (36.0-47.0); HEMOGLOBIN 12.2 g/dl (12.0-15.5); MEAN CORPUSCULAR HEMOGLOBIN 30.2 pg (27.0-33.0); MEAN CORPUSCULAR HGB CONC 32.3 g/dl (32.0-36.5); MEAN CORPUSCULAR VOLUME 93.6 fl (80.0-96.0); PLATELET COUNT, AUTOMATED 256 10^3/uL (150-450); RED BLOOD COUNT 4.04 10^6/uL (4.00-5.40); WHITE BLOOD COUNT 4.4 10^3/uL (4.0-10.0)
[2022-04-03 15:01] LABS: ALBUMIN 3.8 GM/DL (3.2-5.2); BILIRUBIN,TOTAL 0.6 MG/DL (0.2-1.0); CALCIUM LEVEL 9.7 MG/DL (8.8-10.2); CHOLESTEROL RISK RATIO 2.07 (<5); CREATININE FOR GFR 0.98 MG/DL (0.55-1.30); FREE T4 1.25 NG/DL (0.76-1.46); GLOMERULAR FILTRATION RATE 58.3 (>39); POTASSIUM SERUM 4.2 MEQ/L (3.5-5.1); THYROID STIMULATING HORMONE 3.4 uIU/ML (0.358-3.740); TOTAL 25(OH) VITAMIN D 29.7 NG/ML (30.0-100.0); TOTAL PROTEIN 6.7 GM/DL (6.4-8.2)
== END ==
LOC: M PLALAB 09:34
PROVIDERS: ATTEND Internal Medicine Cardiovascular Disease
DX: I10 Essential (primary) hypertension (principal); E03.9 Hypothyroidism, unspecified; E78.5 Hyperlipidemia, unspecified; E55.9 Vitamin D deficiency, unspecified; Z79.899 Other long term (current) drug therapy

== ENCOUNTER → 2022-07-05 | Outpatient (CLI) | payer MEDICARE | LOC: M RAD 10:31 | PROVIDERS: ATTEND Neurological Surgery | DX: I72.5 Aneurysm of other precerebral arteries (principal) ==

== ENCOUNTER → 2022-09-20 | Outpatient (CLI) | payer MEDICARE ==
[2022-09-20 14:36] LABS: HEMATOCRIT 38.5 % (36.0-47.0); HEMOGLOBIN 12.1 g/dl (12.0-15.5); MEAN CORPUSCULAR HGB CONC 31.4 g/dl (32.0-36.5); MEAN CORPUSCULAR VOLUME 95.5 fl (80.0-96.0); PLATELET COUNT, AUTOMATED 263 10^3/uL (150-450); RED BLOOD COUNT 4.03 10^6/uL (4.00-5.40)
[2022-09-20 21:06] LABS: ALBUMIN 3.4 GM/DL (3.2-5.2); BILIRUBIN,TOTAL 0.4 MG/DL (0.2-1.0); CALCIUM LEVEL 9.3 MG/DL (8.8-10.2); CHOLESTEROL RISK RATIO 2.183 (<5); CREATININE FOR GFR 1.04 MG/DL (0.55-1.30); FREE T4 1.01 NG/DL (0.76-1.46); GLOMERULAR FILTRATION RATE 54.4 (>39); POTASSIUM SERUM 4.3 MEQ/L (3.5-5.1); THYROID STIMULATING HORMONE 4.72 uIU/ML (0.358-3.740); TOTAL 25(OH) VITAMIN D 28.2 NG/ML (30.0-100.0); TOTAL PROTEIN 6.4 GM/DL (6.4-8.2)
== END ==
LOC: M PLALAB 09:26
PROVIDERS: ATTEND Internal Medicine Cardiovascular Disease
DX: E03.9 Hypothyroidism, unspecified (principal); E78.5 Hyperlipidemia, unspecified; E53.8 Deficiency of other specified B group vitamins; E55.9 Vitamin D deficiency, unspecified; I10 Essential (primary) hypertension; Z79.899 Other long term (current) drug therapy

== ENCOUNTER → 2022-09-20 | Outpatient (CLI) | payer MEDICARE ==
[2022-09-20 14:33] LABS: HEMOGLOBIN 12.3 g/dl (12.0-15.5); MEAN CORPUSCULAR HEMOGLOBIN 30.8 pg (27.0-33.0); MEAN CORPUSCULAR HGB CONC 32.4 g/dl (32.0-36.5); MEAN CORPUSCULAR VOLUME 95.2 fl (80.0-96.0); PLATELET COUNT, AUTOMATED 263 10^3/uL (150-450); RED BLOOD COUNT 3.99 10^6/uL (4.00-5.40)
[2022-09-20 15:42] LABS: ERYTHROCYTE SEDIMENTATION RATE 8 mm/hr (0-30)
[2022-09-20 16:56] LABS: ALBUMIN 3.4 GM/DL (3.2-5.2); BILIRUBIN,TOTAL 0.6 MG/DL (0.2-1.0); C REACTIVE PROTEIN QUANTITATIV 0.3 MG/DL (0.00-0.30); CALCIUM LEVEL 8.9 MG/DL (8.8-10.2); GLOMERULAR FILTRATION RATE 56.9 (>39); POTASSIUM SERUM 4.2 MEQ/L (3.5-5.1); TOTAL PROTEIN 6.3 GM/DL (6.4-8.2)
[2022-09-29 13:10] LABS: CALPROTECTIN STOOL <16 ug/g (0-120); FATS NEUTRAL Normal (.); FATS TOTAL Normal (.); H PYLORI STOOL ANTIGEN Negative (Negative); PANCREATIC ELASTASE STOOL 102 (>200)
== END ==
LOC: M PLALAB 09:28
PROVIDERS: ATTEND Internal Medicine Gastroenterology
DX: R10.13 Epigastric pain (principal); R19.7 Diarrhea, unspecified; K44.9 Diaphragmatic hernia without obstruction or gangrene; Z79.899 Other long term (current) drug therapy

== ENCOUNTER → 2022-09-25 | Outpatient (CLI) | payer MEDICARE | LOC: M RAD 14:54 | PROVIDERS: ATTEND Internal Medicine Gastroenterology | DX: R12 Heartburn (principal); K44.9 Diaphragmatic hernia without obstruction or gangrene ==

== ENCOUNTER → 2023-01-29 | Outpatient (CLI) | payer MEDICARE ==
[2023-01-29 13:48] LABS: HEMATOCRIT 39.6 % (36.0-47.0); HEMOGLOBIN 12.5 g/dl (12.0-15.5); MEAN CORPUSCULAR HEMOGLOBIN 30.1 pg (27.0-33.0); MEAN CORPUSCULAR HGB CONC 31.6 g/dl (32.0-36.5); MEAN CORPUSCULAR VOLUME 95.4 fl (80.0-96.0); PLATELET COUNT, AUTOMATED 266 10^3/uL (150-450); RED BLOOD COUNT 4.15 10^6/uL (4.00-5.40); WHITE BLOOD COUNT 4.2 10^3/uL (4.0-10.0)
[2023-01-29 14:16] LABS: CPK CREATINE PHOSPHOKINASE 99 U/L (34-145)
[2023-01-29 16:01] LABS: ALBUMIN 3.5 G/DL (3.2-5.2); ALKALINE PHOSPHATASE 77 U/L (46-116); ALT/SGPT 14 U/L (7.0-40); AST/SGOT 23 U/L (<34); BILIRUBIN,TOTAL 0.6 MG/DL (0.3-1.2); BLOOD UREA NITROGEN 14 MG/DL (9-23); CARBON DIOXIDE LEVEL 32 MMOL/L (20-31); CHLORIDE LEVEL 105 MMOL/L (98-107); CHOLESTEROL LEVEL 238 MG/DL (<200); CREATININE FOR GFR 0.94 MG/DL (0.55-1.30); FREE T4 1.24 NG/DL (0.89-1.76); GLOMERULAR FILTRATION RATE > 60.0 (>39); GLUCOSE, FASTING 90 MG/DL (74-106); HDL CHOLESTEROL 91.4 MG/DL (>40); LDL CHOLESTEROL 115.2 MG/DL (<100); NON-HDL-C 147 MG/DL; POTASSIUM SERUM 4.9 MMOL/L (3.5-5.1); SODIUM LEVEL 141 MMOL/L (136-145); THYROID STIMULATING HORMONE 2.811 uIU/ML (0.55-4.78); TOTAL PROTEIN 6.3 G/DL (5.7-8.2); TRIGLYCERIDES LEVEL 157 MG/DL (<150); VITAMIN B12 LEVEL 441 PG/ML (211-911)
== END ==
LOC: M PLALAB 09:25
PROVIDERS: ATTEND Nurse Practitioner Family
DX: E78.5 Hyperlipidemia, unspecified (principal); I10 Essential (primary) hypertension; E03.9 Hypothyroidism, unspecified; E55.9 Vitamin D deficiency, unspecified; D51.9 Vitamin B12 deficiency anemia, unspecified

== ENCOUNTER → 2023-05-10 | Outpatient (CLI) | payer MEDICARE ==
[2023-05-10 13:38] LABS: HEMATOCRIT 35.4 % (36.0-47.0); HEMOGLOBIN 11.7 g/dl (12.0-15.5); MEAN CORPUSCULAR HEMOGLOBIN 30.9 pg (27.0-33.0); MEAN CORPUSCULAR HGB CONC 33.1 g/dl (32.0-36.5); MEAN CORPUSCULAR VOLUME 93.4 fl (80.0-96.0); PLATELET COUNT, AUTOMATED 229 10^3/uL (150-450); RED BLOOD COUNT 3.79 10^6/uL (4.00-5.40); WHITE BLOOD COUNT 4.3 10^3/uL (4.0-10.0)
[2023-05-10 14:23] LABS: ALBUMIN 3.4 G/DL (3.2-5.2); BILIRUBIN,TOTAL 0.6 MG/DL (0.3-1.2); CALCIUM LEVEL 8.6 MG/DL (8.3-10.6); CHOLESTEROL RISK RATIO 2.69 (<5); CREATININE FOR GFR 0.99 MG/DL (0.55-1.30); GLOMERULAR FILTRATION RATE 57.5 (>32); HDL CHOLESTEROL 85.7 MG/DL (>40); LDL CHOLESTEROL 123.5 MG/DL (<100); NON-HDL-C 145.3 MG/DL; POTASSIUM SERUM 3.3 MMOL/L (3.5-5.1); TOTAL PROTEIN 5.9 G/DL (5.7-8.2)
[2023-05-10 14:24] LABS: TOTAL 25(OH) VITAMIN D 64.4 NG/ML (20.0-100.0)
== END ==
LOC: M PLALAB 09:54
PROVIDERS: ATTEND Nurse Practitioner Family
DX: I10 Essential (primary) hypertension (principal); E78.5 Hyperlipidemia, unspecified; E55.9 Vitamin D deficiency, unspecified; E53.8 Deficiency of other specified B group vitamins

== ENCOUNTER → 2023-07-03 | Outpatient (CLI) | payer MEDICARE | LOC: M RAD 10:28 | PROVIDERS: ATTEND Neurological Surgery | DX: I72.5 Aneurysm of other precerebral arteries (principal) ==

== ENCOUNTER → 2023-08-10 | Outpatient (CLI) | payer MEDICARE ==
[2023-08-10 15:03] LABS: HEMATOCRIT 39.8 % (36.0-47.0); HEMOGLOBIN 12.9 g/dl (12.0-15.5); MEAN CORPUSCULAR HEMOGLOBIN 30.4 pg (27.0-33.0); MEAN CORPUSCULAR HGB CONC 32.4 g/dl (32.0-36.5); MEAN CORPUSCULAR VOLUME 93.9 fl (80.0-96.0); PLATELET COUNT, AUTOMATED 278 10^3/uL (150-450); RED BLOOD COUNT 4.24 10^6/uL (4.00-5.40); WHITE BLOOD COUNT 4.4 10^3/uL (4.0-10.0)
[2023-08-10 15:32] LABS: THYROID STIMULATING HORMONE 1.089 uIU/ML (0.55-4.78); TOTAL 25(OH) VITAMIN D 58.1 NG/ML (20.0-100.0)
[2023-08-10 15:33] LABS: FREE T4 1.27 NG/DL (0.89-1.76)
[2023-08-10 15:35] LABS: ALBUMIN 3.6 G/DL (3.2-5.2); ALKALINE PHOSPHATASE 95 U/L (46-116); ALT/SGPT 19 U/L (7.0-40); AST/SGOT 16 U/L (<34); BILIRUBIN,TOTAL 0.6 MG/DL (0.3-1.2); BLOOD UREA NITROGEN 14 MG/DL (9-23); CALCIUM LEVEL 9.3 MG/DL (8.3-10.6); CARBON DIOXIDE LEVEL 34 MMOL/L (20-31); CHLORIDE LEVEL 103 MMOL/L (98-107); CHOLESTEROL LEVEL 225 MG/DL (<200); CHOLESTEROL RISK RATIO 2.71 (<5); CREATININE FOR GFR 0.89 MG/DL (0.55-1.30); GLOMERULAR FILTRATION RATE > 60.0 (>32); GLUCOSE, FASTING 95 MG/DL (74-106); LDL CHOLESTEROL 119.6 MG/DL (<100); POTASSIUM SERUM 3.9 MMOL/L (3.5-5.1); SODIUM LEVEL 143 MMOL/L (136-145); TOTAL PROTEIN 6.5 G/DL (5.7-8.2); TRIGLYCERIDES LEVEL 112 MG/DL (<150)
[2023-08-10 15:36] LABS: CPK CREATINE PHOSPHOKINASE 81 U/L (34-145)
== END ==
LOC: M PLALAB 09:13
PROVIDERS: ATTEND Nurse Practitioner Family
DX: I10 Essential (primary) hypertension (principal); E78.5 Hyperlipidemia, unspecified; E03.9 Hypothyroidism, unspecified; E55.9 Vitamin D deficiency, unspecified; Z79.899 Other long term (current) drug therapy

== ENCOUNTER → 2024-08-15 | Outpatient (CLI) | payer MEDICARE ==
[~2024-08-15] MED LIST changes: -ROSU10TA6 PO; +ROSU10TA61 PO
== END ==
LOC: M WUC 09:38
PROVIDERS: ATTEND Nurse Practitioner Adult Health
DX: M54.2 Cervicalgia (principal)

== ENCOUNTER → 2024-10-10 | Outpatient (CLI) | payer MEDICARE ==
[2024-10-10 11:32] LABS: HEMATOCRIT 41.5 % (36.0-47.0); HEMOGLOBIN 13.6 g/dl (12.0-15.5); MEAN CORPUSCULAR HEMOGLOBIN 30.6 pg (27.0-33.0); MEAN CORPUSCULAR HGB CONC 32.8 g/dl (32.0-36.5); MEAN CORPUSCULAR VOLUME 93.3 fl (80.0-96.0); PLATELET COUNT, AUTOMATED 271 10^3/uL (150-450); RED BLOOD COUNT 4.45 10^6/uL (4.00-5.40); WHITE BLOOD COUNT 5.5 10^3/uL (4.0-10.0)
[2024-10-10 11:53] LABS: HEMOGLOBIN A1c 5.5 % (4.0-6.0)
[2024-10-10 12:11] LABS: THYROID STIMULATING HORMONE 0.482 uIU/ML (0.55-4.78)
[2024-10-10 12:12] LABS: ALBUMIN 3.7 G/DL (3.2-5.2); ALKALINE PHOSPHATASE 91 U/L (35-104); ALT/SGPT 13 U/L (7.0-40); AST/SGOT 15 U/L (<34); BILIRUBIN,TOTAL 0.8 MG/DL (0.3-1.2); BLOOD UREA NITROGEN 16 MG/DL (9-23); CARBON DIOXIDE LEVEL 33 MMOL/L (20-31); CHLORIDE LEVEL 102 MMOL/L (98-107); CHOLESTEROL LEVEL 247 MG/DL (<200); CHOLESTEROL RISK RATIO 2.31 (<5); CREATININE FOR GFR 0.94 MG/DL (0.55-1.30); GLOMERULAR FILTRATION RATE > 60.0 (>32); GLUCOSE, FASTING 96 MG/DL (74-106); HDL CHOLESTEROL 106.9 MG/DL (>40); LDL CHOLESTEROL 117.5 MG/DL (<100); NON-HDL-C 140.1 MG/DL; POTASSIUM SERUM 4.1 MMOL/L (3.5-5.1); SODIUM LEVEL 142 MMOL/L (136-145); TOTAL PROTEIN 6.9 G/DL (5.7-8.2); TRIGLYCERIDES LEVEL 113 MG/DL (<150); VITAMIN B12 LEVEL 368 PG/ML (211-911)
[2024-10-10 12:13] LABS: TOTAL 25(OH) VITAMIN D 54.6 NG/ML (20.0-100.0)
== END ==
LOC: M PLALAB 08:52
PROVIDERS: ATTEND Nurse Practitioner Adult Health
DX: R30.0 Dysuria (principal); E78.5 Hyperlipidemia, unspecified; I10 Essential (primary) hypertension; E03.9 Hypothyroidism, unspecified; D51.9 Vitamin B12 deficiency anemia, unspecified; E55.9 Vitamin D deficiency, unspecified; K21.9 Gastro-esophageal reflux disease without esophagitis; I25.119 Atherosclerotic heart disease of native coronary artery with unspecified angina pectoris; Z79.899 Other long term (current) drug therapy

== ENCOUNTER → 2025-05-26 | Outpatient (CLI) | payer MEDICARE | LOC: M SLEEP 20:00 | PROVIDERS: ATTEND Physician Assistant | DX: R40.0 Somnolence (principal); R06.83 Snoring ==

== ENCOUNTER → 2025-07-24 | Outpatient (CLI) | payer MEDICARE | LOC: M WUC 12:16 | DX: M79.672 Pain in left foot (principal) ==